=== PATIENT | male | born 1935 | race Asian ===

== ENCOUNTER 2017-11-20 18:12 | Inpatient (IN) | payer OTHER, MEDICARE ==
[~2017-11-20] VITALS: Ht 167.6 cm; Wt 49.9 kg
[2017-11-20 18:16] VITALS: BP 113/54
[2017-11-20] MEDS ORDERED: NACL 0.9% 1,000 ML IV ONE ×2 (18:35→18:40)
[2017-11-20 19:20] LABS: BASOPHILS # (AUTO) 0.6 K/uL (0.00-0.22); EOSINOPHILS # (AUTO) 0.1 K/uL (0-0.4); HEMATOCRIT 53.5 % (36-52); LYMPHOCYTES # (AUTO) 1.7 K/uL (2.0-11.5); MEAN CORPUSCULAR HEMOGLOBIN 27 pg (27-31); MEAN CORPUSCULAR HGB CONC 32 g/dL (33-37); MEAN CORPUSCULAR VOLUME 85 fL (80-94); MONOCYTES # (AUTO) 1.1 K/uL (0.8-1.0); NEUTROPHILS # (AUTO) 9.6 K/uL (1.8-7.7); PLATELET COUNT (AUTO) 123 K/uL (140-450); RED BLOOD CELL COUNT(AUTO) 6.29 MIL/uL (4.20-6.10); RED CELL DISTRIBUTION WIDTH 14.2 % (11.6-13.7); WHITE BLOOD COUNT (AUTO) 13.1 K/uL (4.8-10.8)
[2017-11-20] MEDS ORDERED: DOCU-299 PO (19:23)
[2017-11-20] MEDS ORDERED: TAMS0.4C96 PO (19:23)
[2017-11-20] MEDS ORDERED: FINA5TAB1 PO (19:23)
[2017-11-20] MEDS ORDERED: MAGN400S60 PO (19:23)
[2017-11-20] MEDS ORDERED: ACET-2619 PO (19:23)
[2017-11-20] MEDS ORDERED: ALEN70TA1 PO (19:23)
[2017-11-20] MEDS ORDERED: LEVO0.124 PO (19:23)
[2017-11-20] MEDS ORDERED: CALC-53 PO (19:23)
[2017-11-20] MEDS ORDERED: CRAN1TAB3 PO (19:23)
[2017-11-20] MEDS ORDERED: KEP500 PO (19:23)
[2017-11-20] MEDS ORDERED: PSYL0.5212 PO (19:23)
[2017-11-20] MEDS ORDERED: PAR2.5 PO (19:23)
[2017-11-20] MEDS ORDERED: LOSA50TA1 PO (19:23)
[2017-11-20 19:34] LABS: PROTHROMBIN TIME 10.4 secs (10.8-13.4)
[2017-11-20 19:35] LABS: ALBUMIN 3.5 g/dL (3.4-5.0); ANION GAP 15.3 (8-16); ASPARTATE AMINOTRANSFERASE 58 U/L (15-37); CARBON DIOXIDE 27.3 mmol/L (21-32); CHLORIDE 101 mmol/L (98-107); CREATININE 1.5 mg/dL (0.7-1.3); GLUCOSE 142 mg/dL (74-106); POTASSIUM 4.6 mmol/L (3.5-5.1); SODIUM SERUM 139 mmol/L (136-145); TOTAL BILIRUBIN 0.8 mg/dL (0.0-1.0); UREA NITROGEN, BLOOD 56 mg/dL (7-18)
[2017-11-20] MEDS ORDERED: NACL 0.9% 500 ML IV ONE (21:10)
[2017-11-20] MEDS ORDERED: HYDROmorphone PFS 2 MG/ML SYR IVP ONE (21:30)
[2017-11-20] MEDS ORDERED: LEVOFLOXACIN 500 MG/D5W PREMIX 100 ML IV ONE (22:25)
[2017-11-20] MEDS ORDERED: ACETAMINOPHEN 325 MG TAB PO PRN (22:40)
[2017-11-20] MEDS ORDERED: ONDANSETRON 4 MG/2 ML VIAL IVP PRN (22:40)
[2017-11-20] MEDS ORDERED: HYDROcodone/APAP 7.5/325 MG 1 TAB PO PRN (22:40)
[2017-11-20 22:53] LABS: APPEARANCE,URINE CLOUDY (CLEAR)
[2017-11-20 22:54] LABS: BILIRUBIN,URINE NEGATIVE (NEGATIVE); BLOOD, URINE 3+ (NEGATIVE); COLOR,URINE YELLOW (YELLOW); LEUKOCYTE ESTERASE ,URINE 3+ (NEGATIVE); NITRITE, URINE POSITIVE (NEGATIVE); PH,URINE 7.5 (5.0-9.0); UGLUCOSE NEGATIVE (NEGATIVE)
[2017-11-20 22:55] LABS: HYALINE CASTS, URINE 0-10 /LPF (None Seen); RBC,URINE TOO NUMEROUS TO COUN /HPF (0-5); WBC,URINE TOO MANY TO COUNT /HPF (0-5)
[2017-11-20 23:30] VITALS: BP 111/64
[2017-11-21] MEDS: NACL 0.9% 1,000 ML IV SCH ×3 (00:02→17:46)
[2017-11-21] MEDS ORDERED: METOPROLOL 5 MG/5 ML VIAL IVP SCH (01:25)
[2017-11-21] MEDS ORDERED: LEVOFLOXACIN 250 MG/D5 PREMIX 50 ML IV ONE (01:30)
[2017-11-21 02:02] VITALS: BP 107/64
[2017-11-21 04:00] VITALS: BP 131/75
[2017-11-21] MEDS: LEVOTHYROXINE 0.025 MG TAB PO SCH (06:30)
[2017-11-21 07:46] LABS: BASOPHILS # (AUTO) 0.2 K/uL (0.00-0.22); BASOPHILS % (AUTO) 1.5 % (0.0-2.0); HEMATOCRIT 48.8 % (36-52); HEMOGLOBIN 15.8 g/dL (12.0-18.0); LYMPHOCYTES # (AUTO) 1.2 K/uL (2.0-11.5); LYMPHOCYTES % (AUTO) 10.9 % (20.5-51.1); MEAN CORPUSCULAR HEMOGLOBIN 28 pg (27-31); MEAN CORPUSCULAR HGB CONC 32 g/dL (33-37); MEAN CORPUSCULAR VOLUME 85 fL (80-94); MONOCYTES # (AUTO) 1.4 K/uL (0.8-1.0); MONOCYTES % (AUTO) 12.2 % (1.7-9.3); NEUTROPHILS # (AUTO) 8.6 K/uL (1.8-7.7); NEUTROPHILS % (AUTO) 75.4 % (42.2-75.2); PLATELET COUNT (AUTO) 85 K/uL (140-450); RED BLOOD CELL COUNT(AUTO) 5.72 MIL/uL (4.20-6.10)
[2017-11-21 07:59] VITALS: BP 101/52
[2017-11-21] MEDS: FINASTERIDE 5 MG TAB PO SCH (09:00)
[2017-11-21] MEDS: BROMOCRIPTINE 2.5 MG TAB PO SCH ×2 (09:00→21:00)
[2017-11-21] MEDS ORDERED: levETIRAcetam 500 MG TAB PO SCH (09:00)
[2017-11-21] MEDS: METOPROLOL 25 MG TAB PO SCH ×2 (09:00→21:00)
[2017-11-21] MEDS: LOSARTAN 50 MG TAB PO SCH (09:00)
[2017-11-21] MEDS: DOCUSATE SODIUM 100 MG GELCAP PO SCH ×2 (09:00→21:00)
[2017-11-21] MEDS: LACTOBACILLUS RHAMNOSUS GG 1 EACH CAP PO SCH (09:00)
[2017-11-21] MEDS: CALCIUM CARB/VIT-D 500 MG/200 IU 1 TAB PO SCH (09:00)
[2017-11-21 09:09] LABS: WHITE BLOOD COUNT (AUTO) 11.4 K/uL (4.8-10.8)
[2017-11-21 09:18] LABS: ANION GAP 16.1 (8-16); CARBON DIOXIDE 22.5 mmol/L (21-32); CHLORIDE 110 mmol/L (98-107); GLUCOSE 105 mg/dL (74-106); POTASSIUM 4.6 mmol/L (3.5-5.1); SODIUM SERUM 144 mmol/L (136-145); UREA NITROGEN, BLOOD 36 mg/dL (7-18)
[2017-11-21 09:26] LABS: PHOSPHORUS 3.2 mg/dL (2.5-4.9)
[2017-11-21 12:00] VITALS: BP 106/52
[2017-11-21 16:00] VITALS: BP_SYST 113; BP_SYST 143; BP_DIAS 70; BP_DIAS 74
[2017-11-21 20:00] VITALS: BP 134/61
[2017-11-21] MEDS: TAMSULOSIN 0.4 MG CAP PO SCH (21:00)
[2017-11-21] MEDS: levETIRAcetam 500 MG in NACL 0.9% 100 ML IV SCH (22:10)
[2017-11-21] MEDS ORDERED: levETIRAcetam 100 MG/ML VIAL IV ONE (23:06)
[2017-11-22] VITALS: BP 140/73
[2017-11-22 04:00] VITALS: BP 132/60
[2017-11-22] MEDS: NACL 0.9% 1,000 ML IV SCH ×2 (04:41→15:50)
[2017-11-22] MEDS: LEVOTHYROXINE 0.025 MG TAB PO SCH (06:15)
[2017-11-22 06:39] LABS: HEMATOCRIT 40.9 % (36-52); HEMOGLOBIN 13.5 g/dL (12.0-18.0); MEAN CORPUSCULAR HEMOGLOBIN 28 pg (27-31); MEAN CORPUSCULAR HGB CONC 33 g/dL (33-37); MEAN CORPUSCULAR VOLUME 84 fL (80-94); PLATELET COUNT (AUTO) 102 K/uL (140-450); RED BLOOD CELL COUNT(AUTO) 4.85 MIL/uL (4.20-6.10); WHITE BLOOD COUNT (AUTO) 8.3 K/uL (4.8-10.8)
[2017-11-22 07:37] LABS: ANION GAP 15.1 (8-16); CARBON DIOXIDE 21.6 mmol/L (21-32); CHLORIDE 114 mmol/L (98-107); CREATININE 0.9 mg/dL (0.7-1.3); GLUCOSE 103 mg/dL (74-106); POTASSIUM 3.7 mmol/L (3.5-5.1); SODIUM SERUM 147 mmol/L (136-145); UREA NITROGEN, BLOOD 18 mg/dL (7-18)
[2017-11-22 07:47] VITALS: BP 138/70
[2017-11-22 07:56] LABS: MAGNESIUM 1.7 mg/dL (1.8-2.4); PHOSPHORUS 1.8 mg/dL (2.5-4.9)
[2017-11-22] MEDS: FINASTERIDE 5 MG TAB PO SCH (09:00)
[2017-11-22] MEDS: BROMOCRIPTINE 2.5 MG TAB PO SCH ×2 (09:00→21:47)
[2017-11-22] MEDS: CALCIUM CARB/VIT-D 500 MG/200 IU 1 TAB PO SCH (09:00)
[2017-11-22] MEDS: LOSARTAN 50 MG TAB PO SCH (09:00)
[2017-11-22] MEDS: LACTOBACILLUS RHAMNOSUS GG 1 EACH CAP PO SCH (09:00)
[2017-11-22] MEDS: METOPROLOL 25 MG TAB PO SCH ×2 (09:00→21:39)
[2017-11-22] MEDS: DOCUSATE SODIUM 100 MG GELCAP PO SCH ×2 (09:00→21:00)
[2017-11-22 09:22] LABS: LYMPHOCYTES % (MANUAL) 17 % (20-46); MONOCYTES % (MANUAL) 7 % (5-12)
[2017-11-22] MEDS: levETIRAcetam 500 MG in NACL 0.9% 100 ML IV SCH ×2 (09:26→21:28)
[2017-11-22 11:55] VITALS: BP 149/76
[2017-11-22] MEDS ORDERED: MAG SULF 2000 MG/WATER PREMIX 50 ML IV SCH (12:00)
[2017-11-22] MEDS ORDERED: INSULIN LISPRO SLIDING SCALE 100 UNITS/ML VIAL SUBQ PRN (12:20)
[2017-11-22] MEDS ORDERED: DEXTROSE 50% 50 ML SYR IVP PRN (12:20)
[2017-11-22] MEDS: CHLORHEXADINE GLUC 2% CLOTH TP SCH (12:43)
[2017-11-22 15:36] VITALS: BP 127/56
[2017-11-22] MEDS: BLOOD GLUCOSE MONITORING 1 DEV DEV FS SCH ×2 (15:44→21:06)
[2017-11-22 20:00] VITALS: BP 138/69
[2017-11-22] MEDS ORDERED: LEVOFLOXACIN 750 MG/D5W PREMIX 150 ML IV SCH (21:00)
[2017-11-22] MEDS: TAMSULOSIN 0.4 MG CAP PO SCH (21:40)
[2017-11-23] VITALS (7 sets, daily range): BP systolic 130–174; BP diastolic 57–89
[2017-11-23] MEDS: NACL 0.9% 1,000 ML IV SCH ×3 (01:11→20:19)
[2017-11-23] MEDS: LEVOTHYROXINE 0.025 MG TAB PO SCH (05:40)
[2017-11-23 06:46] LABS: ANION GAP 14.8 (8-16); CARBON DIOXIDE 23.3 mmol/L (21-32); CHLORIDE 116 mmol/L (98-107); CREATININE 0.8 mg/dL (0.7-1.3); GLUCOSE 92 mg/dL (74-106); POTASSIUM 5.1 mmol/L (3.5-5.1); SODIUM SERUM 149 mmol/L (136-145); UREA NITROGEN, BLOOD 14 mg/dL (7-18)
[2017-11-23 06:50] LABS: MAGNESIUM 2.4 mg/dL (1.8-2.4); PHOSPHORUS 1.8 mg/dL (2.5-4.9)
[2017-11-23] MEDS ORDERED: MAG SULF 2000 MG/WATER PREMIX 50 ML IV ONE (07:45)
[2017-11-23] MEDS: levETIRAcetam 500 MG in NACL 0.9% 100 ML IV SCH ×2 (08:04→20:20)
[2017-11-23] MEDS: BLOOD GLUCOSE MONITORING 1 DEV DEV FS SCH ×4 (08:07→20:24)
[2017-11-23 08:20] LABS: BASOPHILS # (AUTO) 0.3 K/uL (0.00-0.22); BASOPHILS % (AUTO) 3.4 % (0.0-2.0); EOSINOPHILS % (AUTO) 0.2 % (0.0-4.0); HEMOGLOBIN 13.9 g/dL (12.0-18.0); LYMPHOCYTES # (AUTO) 1.2 K/uL (2.0-11.5); MEAN CORPUSCULAR HEMOGLOBIN 27 pg (27-31); MEAN CORPUSCULAR HGB CONC 32 g/dL (33-37); MEAN CORPUSCULAR VOLUME 85 fL (80-94); MONOCYTES # (AUTO) 1.5 K/uL (0.8-1.0); NEUTROPHILS % (AUTO) 69.4 % (42.2-75.2); PLATELET COUNT (AUTO) 85 K/uL (140-450); RED BLOOD CELL COUNT(AUTO) 5.06 MIL/uL (4.20-6.10); RED CELL DISTRIBUTION WIDTH 14.4 % (11.6-13.7)
[2017-11-23] MEDS: METOPROLOL 25 MG TAB PO SCH ×3 (09:00→21:00)
[2017-11-23] MEDS: CALCIUM CARB/VIT-D 500 MG/200 IU 1 TAB PO SCH (09:42)
[2017-11-23] MEDS: FINASTERIDE 5 MG TAB PO SCH (09:42)
[2017-11-23] MEDS: LOSARTAN 50 MG TAB PO SCH (09:42)
[2017-11-23] MEDS: DOCUSATE SODIUM 100 MG GELCAP PO SCH ×2 (09:42→20:20)
[2017-11-23] MEDS: BROMOCRIPTINE 2.5 MG TAB PO SCH ×2 (09:43→20:20)
[2017-11-23] MEDS: LACTOBACILLUS RHAMNOSUS GG 1 EACH CAP PO SCH (09:43)
[2017-11-23] MEDS: MUPIROCIN 2% OINT 22 GM TUBE TP SCH (09:43)
[2017-11-23] MEDS: CHLORHEXADINE GLUC 2% CLOTH TP SCH (12:00)
[2017-11-23] MEDS: TAMSULOSIN 0.4 MG CAP PO SCH (20:20)
[2017-11-23] MEDS ORDERED: METOPROLOL 25 MG TAB PO SCH (20:40)
[2017-11-24] MEDS ORDERED: METOPROLOL 5 MG/5 ML VIAL IVP ONE (01:50)
[2017-11-24 04:00] VITALS: BP 151/96
[2017-11-24] MEDS: LEVOTHYROXINE 0.025 MG TAB PO SCH (06:02)
[2017-11-24] MEDS: NACL 0.9% 1,000 ML IV SCH (06:03)
[2017-11-24 06:27] LABS: BASOPHILS # (AUTO) 0.2 K/uL (0.00-0.22); BASOPHILS % (AUTO) 1.8 % (0.0-2.0); EOSINOPHILS % (AUTO) 0.1 % (0.0-4.0); HEMOGLOBIN 15.1 g/dL (12.0-18.0); LYMPHOCYTES # (AUTO) 1.2 K/uL (2.0-11.5); LYMPHOCYTES % (AUTO) 10.4 % (20.5-51.1); MEAN CORPUSCULAR HEMOGLOBIN 28 pg (27-31); MEAN CORPUSCULAR HGB CONC 32 g/dL (33-37); MEAN CORPUSCULAR VOLUME 85 fL (80-94); MONOCYTES # (AUTO) 1.2 K/uL (0.8-1.0); MONOCYTES % (AUTO) 10.9 % (1.7-9.3); NEUTROPHILS # (AUTO) 8.7 K/uL (1.8-7.7); NEUTROPHILS % (AUTO) 76.8 % (42.2-75.2); PLATELET COUNT (AUTO) 151 K/uL (140-450); RED BLOOD CELL COUNT(AUTO) 5.51 MIL/uL (4.20-6.10); RED CELL DISTRIBUTION WIDTH 14.1 % (11.6-13.7); WHITE BLOOD COUNT (AUTO) 11.3 K/uL (4.8-10.8)
[2017-11-24] MEDS: BLOOD GLUCOSE MONITORING 1 DEV DEV FS SCH ×3 (06:43→16:51)
[2017-11-24 06:56] LABS: ANION GAP 15.9 (8-16); CARBON DIOXIDE 21.5 mmol/L (21-32); CHLORIDE 113 mmol/L (98-107); CREATININE 0.7 mg/dL (0.7-1.3); GLUCOSE 155 mg/dL (74-106); POTASSIUM 3.4 mmol/L (3.5-5.1); SODIUM SERUM 147 mmol/L (136-145); UREA NITROGEN, BLOOD 11 mg/dL (7-18)
[2017-11-24 07:09] LABS: MAGNESIUM 1.8 mg/dL (1.8-2.4); PHOSPHORUS 1.6 mg/dL (2.5-4.9)
[2017-11-24 08:05] VITALS: BP 149/99
[2017-11-24] MEDS ORDERED: CALCIUM CARBONATE 500 MG TAB PO SCH (09:00)
[2017-11-24] MEDS ORDERED: SODIUM PHOS / POTASSIUM PHOS 1 PKT PDR PO SCH (09:00)
[2017-11-24] MEDS ORDERED: POTASSIUM CHLORIDE 20% 40 MEQ/15 ML UDC PO SCH (09:00)
[2017-11-24] MEDS: DOCUSATE SODIUM 100 MG GELCAP PO SCH (09:50)
[2017-11-24] MEDS: LOSARTAN 50 MG TAB PO SCH (09:51)
[2017-11-24] MEDS: CALCIUM CARB/VIT-D 500 MG/200 IU 1 TAB PO SCH (09:51)
[2017-11-24] MEDS: LACTOBACILLUS RHAMNOSUS GG 1 EACH CAP PO SCH (09:51)
[2017-11-24] MEDS: FINASTERIDE 5 MG TAB PO SCH (09:51)
[2017-11-24] MEDS: BROMOCRIPTINE 2.5 MG TAB PO SCH (09:51)
[2017-11-24] MEDS: METOPROLOL 25 MG TAB PO SCH (09:51)
[2017-11-24] MEDS: levETIRAcetam 500 MG in NACL 0.9% 100 ML IV SCH (09:52)
[2017-11-24] MEDS: MUPIROCIN 2% OINT 22 GM TUBE TP SCH (09:52)
[2017-11-24] MEDS ORDERED: LACT10CA PO (11:56)
[2017-11-24] MEDS ORDERED: BACTO TP (11:56)
[2017-11-24] MEDS ORDERED: LEVO750T2 PO (11:56)
[2017-11-24] MEDS ORDERED: METO25TA PO (11:56)
[2017-11-24] MEDS ORDERED: CHLO118S2 TP (11:56)
[2017-11-24] MEDS: CHLORHEXADINE GLUC 2% CLOTH TP SCH (12:19)
[2017-11-24] MEDS ORDERED: DILTIAZEM 25 MG/5 ML VIAL IVP SCH (12:30)
[2017-11-24 13:00] VITALS: BP 142/95
[2017-11-24 14:23] VITALS: BP 153/93
[2017-11-24 16:00] VITALS: BP 128/80
[2017-11-27] MEDS ORDERED: ALENDRONATE SODIUM 70 MG TAB PO SCH (06:00)
== END 2017-11-24 17:35 | disposition home or self-care (01) | DRG 871 ==
LOC: MED 18:12 → MTU 22:40 → UNDOADMIN 22:40
PROVIDERS: ADMIT Family Medicine Sports Medicine; ATTEND Family Medicine Sports Medicine
DX: A41.9 Sepsis, unspecified organism (principal); N17.0 Acute kidney failure with tubular necrosis; G93.41 Metabolic encephalopathy; E87.0 Hyperosmolality and hypernatremia; E11.65 Type 2 diabetes mellitus with hyperglycemia; E11.51 Type 2 diabetes mellitus with diabetic peripheral angiopathy without gangrene; D68.59 Other primary thrombophilia; N39.0 Urinary tract infection, site not specified; T83.83XA Hemorrhage due to genitourinary prosthetic devices, implants and grafts, initial encounter; I11.0 Hypertensive heart disease with heart failure; I50.9 Heart failure, unspecified; J32.9 Chronic sinusitis, unspecified; R65.20 Severe sepsis without septic shock; R74.0 Nonspecific elevation of levels of transaminase and lactic acid dehydrogenase [LDH]; E87.6 Hypokalemia; E83.39 Other disorders of phosphorus metabolism; E83.42 Hypomagnesemia; E87.8 Other disorders of electrolyte and fluid balance, not elsewhere classified; E83.51 Hypocalcemia; B95.62 Methicillin resistant Staphylococcus aureus infection as the cause of diseases classified elsewhere; G93.89 Other specified disorders of brain; E03.9 Hypothyroidism, unspecified; E78.5 Hyperlipidemia, unspecified; M81.0 Age-related osteoporosis without current pathological fracture; I48.0 Paroxysmal atrial fibrillation; F03.90 Unspecified dementia, unspecified severity, without behavioral disturbance, psychotic disturbance, mood disturbance, and anxiety; B96.4 Proteus (mirabilis) (morganii) as the cause of diseases classified elsewhere; N40.0 Benign prostatic hyperplasia without lower urinary tract symptoms; I25.10 Atherosclerotic heart disease of native coronary artery without angina pectoris; F32.9 Major depressive disorder, single episode, unspecified; Z88.1 Allergy status to other antibiotic agents; Z86.73 Personal history of transient ischemic attack (TIA), and cerebral infarction without residual deficits; Y84.6 Urinary catheterization as the cause of abnormal reaction of the patient, or of later complication, without mention of misadventure at the time of the procedure; Y92.89 Other specified places as the place of occurrence of the external cause
CPT/HCPCS: 36415; 51702; 70450; 71045; 76770; 80048; 80053; 81001; 82550; 82553; 82948; 83036; 83605; 83690; 83735; 83874; 83880; 84100; 84439; 84443; 84484; 85025; 85610; 85730; 87040; 87081; 87086; 87186; 92610; 93005; 93925; 93970; 96365; 96375; 99285; J1170; J1815; J1953; J1956; J3475; J3490; J7030; J7060; Q0092

== ENCOUNTER 2018-03-24 22:43 | Inpatient (IN) | payer OTHER, MEDICARE ==
[~2018-03-24] VITALS: Ht 152.4 cm; Wt 76.2 kg
[~2018-03-24 22:43] MED LIST: ACET-2619 PO; ALEN70TA1 PO; BACTO TP; CALC-53 PO; CHLO118S2 TP; CRAN1TAB3 PO; DOCU-299 PO; FINA5TAB1 PO; LACT10CA PO; LEVO0.124 PO; LEVO750T2 PO; LOSA50TA1 PO; MAGN400S60 PO; METO25TA PO; PAR2.5 PO; PSYL0.5212 PO; TAMS0.4C96 PO
--- NOTE | 2018-03-24 22:43 | NUR ---
PT.JANIS TO ER BED 8
--- NOTE | 2018-03-24 22:43 | NUR ---
RECEIVED REPORT FROM [facility] WHO PICKED PT UP FROM [facility] DUE TO HEMATURIA, FEVER, HYPOTENSION AND DISCHARGE FROM [facility] SINCE 1900 TODAY. ALSO REPORTED A LOW BP OF 89/60 AT THE FACILITY. PATIENT PRESENTS NONVERBAL, RESPONDING ONLY TO PAIN WHICH IS HIS BASELINE. PATIENT PLACED ON MONITOR, IV'S ESTABLISHED, URINE OBTAINED, EKG PERFORMED. [facility] ONTINUE TO MONITOR CLOSELY.
[2018-03-24] MEDS ORDERED: NACL 0.9% 1,000 ML IV ONE ×2 (22:53)
[2018-03-24 23:07] VITALS: BP 96/63
[2018-03-24 23:19] LABS: BASOPHILS # (AUTO) 0.1 K/uL (0.00-0.22); BASOPHILS % (AUTO) 0.3 % (0.0-2.0); EOSINOPHILS % (AUTO) 0.2 % (0.0-4.0); HEMATOCRIT 37.2 % (36-52); HEMOGLOBIN 12.1 g/dL (12.0-18.0); LYMPHOCYTES # (AUTO) 1.7 K/uL (2.0-11.5); LYMPHOCYTES % (AUTO) 9.5 % (20.5-51.1); MEAN CORPUSCULAR HEMOGLOBIN 27 pg (27-31); MEAN CORPUSCULAR HGB CONC 33 g/dL (33-37); MEAN CORPUSCULAR VOLUME 84.5 fL (80-94); MONOCYTES # (AUTO) 1.7 K/uL (0.8-1.0); MONOCYTES % (AUTO) 9.6 % (1.7-9.3); NEUTROPHILS # (AUTO) 14.2 K/uL (1.8-7.7); PLATELET COUNT (AUTO) 340 K/uL (140-450); RED BLOOD CELL COUNT(AUTO) 4.41 MIL/uL (4.20-6.10); RED CELL DISTRIBUTION WIDTH 15.3 % (11.6-13.7); WHITE BLOOD COUNT (AUTO) 17.7 K/uL (4.8-10.8)
--- NOTE | 2018-03-24 23:24 | NUR ---
Blanka fournier in [facility] - 03/24/18 at [email or web address] TERRY AT BEDSIDE
[2018-03-24 23:27] LABS: ANION GAP 7.7 (8-16); CARBON DIOXIDE 31.3 mmol/L (21-32); CHLORIDE 99 mmol/L (98-107); CREATININE 0.8 mg/dL (0.7-1.3); GLUCOSE 207 mg/dL (74-106); SODIUM SERUM 134 mmol/L (136-145); UREA NITROGEN, BLOOD 27 mg/dL (7-18)
[2018-03-24 23:33] LABS: ALBUMIN 1.9 g/dL (3.4-5.0); ASPARTATE AMINOTRANSFERASE 42 U/L (15-37); LIPASE 448 U/L (73-393); TOTAL BILIRUBIN 1.4 mg/dL (0.0-1.0)
[2018-03-24 23:44] LABS: NEUTROPHILS % (AUTO) 80.4 % (42.2-75.2)
[2018-03-24] MEDS ORDERED: LEVOFLOXACIN 750 MG/D5W PREMIX 150 ML IV ONE (23:55)
[2018-03-24 23:57] LABS: APPEARANCE,URINE CLOUDY (CLEAR); BILIRUBIN,URINE 1+ (NEGATIVE); BLOOD, URINE 3+ (NEGATIVE); COLOR,URINE YELLOW (YELLOW); LEUKOCYTE ESTERASE ,URINE TRACE (NEGATIVE); NITRITE, URINE NEGATIVE (NEGATIVE); PH,URINE 5.5 (5.0-9.0); UGLUCOSE NEGATIVE (NEGATIVE)
[2018-03-25 00:09] LABS: RBC,URINE TOO NUMEROUS TO COUN /HPF (0-5)
--- NOTE | 2018-03-25 00:30 | NUR ---
PT. RESTING IN BED, EKG TACHYCARDIA HR 130 BPM
[2018-03-25] MEDS ORDERED: NACL 0.9% 1,000 ML IV ONE (01:00)
[2018-03-25] MEDS ORDERED: DILTIAZEM 25 MG/5 ML VIAL IVP ONE ×2 (01:00→06:45)
[2018-03-25] MEDS ORDERED: NACL 0.9% 1,000 ML IV SCH (01:03)
[2018-03-25] MEDS ORDERED: DILTIAZEM 125 MG/25 ML VIAL IV ONE (01:05)
[2018-03-25] MEDS ORDERED: HYDROcodone/APAP 7.5/325 MG 1 TAB PO PRN (01:05)
[2018-03-25] MEDS ORDERED: ONDANSETRON 4 MG/2 ML VIAL IM/IVP PRN (01:05)
[2018-03-25] MEDS ORDERED: DOCUSATE SODIUM 100 MG GELCAP PO PRN (01:05)
[2018-03-25] MEDS ORDERED: DEXTROSE 50% 50 ML SYR IVP PRN (01:25)
[2018-03-25] MEDS: DEXT 5% /NACL 0.9% 1,000 ML IV SCH ×2 (01:30→13:16)
--- NOTE | 2018-03-25 01:35 | NUR ---
RECEIVED A 82 Y/O MALE FROM ER VIA [facility] WITH C/C OF HEMATURIA AND HYPOTENSION. TRANSFERRED PATIENT WITH 2 ASSIST FROM [place] TO BED AND REPOSITIONED PATIENT IN COMFORTABLE POSITION. ADMISSION CARE DONE AND CARRY OUT ORDERS. FALL PRECAUTION IMPLEMENTED. PLACED ALLERGY WRIST BAND FOR SAFETY. PATIENT IS NON-VERBAL. CALL LIGHT WITHIN REACH.
--- NOTE | 2018-03-25 01:35 | NUR ---
Patient will be admitted to [facility]. Admited to TELEMETRY. Will go to room 113. Belongings list completed. Report to KARYNA OJEDA.
[2018-03-25] MEDS ORDERED: MAGNESIUM HYDROXIDE 2400 MG/30 ML UDC PO PRN (01:40)
[2018-03-25 01:46] LABS: FREE T4 (FREE THYROXINE) 1.24 ng/dL (0.76-1.46); PHOSPHORUS 2.8 mg/dL (2.5-4.9); THYROID STIMULATING HORMONE 0.01 uIU/mL (0.34-3.74)
[2018-03-25 04:00] VITALS: BP 102/63
--- NOTE | 2018-03-25 04:20 | NUR ---
TRANSPORT PATIENT TO CT ROOM FOR HEAD CT ACCOMPANIED BY CHEMISTRY ACCOUNT MANAGER AND HALAL MEAT PACKER. PATIENT TOLERATED PROCEDURE WELL AND TRANSPORTED BACK TO THE ROOM WITH NO PROBLEM.
--- NOTE | 2018-03-25 06:20 | NUR ---
UNCONTROLLED A-FIB ON TELE RANGING FROM 150'S TO 170'S BPM, PT SLEEPING, NO SIGNS OF DISTRESS, DR CONDE MADE AWARE, SAID SHE WILL ORDER STAT EKG AND CARDIOLOGY CONSULT WITH DR FLORES, VITAL SIGNS TAKEN: BP-119/63, HR-161, RR-26, TEMP-97.8, SAT-96% ON ROOM AIR, MONITORED CLOSELY.
--- NOTE | 2018-03-25 06:42 | NUR ---
PATIENT HAS BEEN SCREENED AND CATEGORIZED MODERATE NUTRITION RISK. PATIENT WILL BE SEEN WITHIN 3-5 DAYS OF ADMISSION. 03/27/18-03/29/18 MELVIN AMES MS, RDN Addendum: 03/26/18 at [address] PATIENT HAS BEEN RE-SCREENED AND RE-CATEGORIZED HIGH NUTRITIONAL RISK DUE TO SEPSIS. PATIENT WILL BE SEEN 03/27/[address]
[2018-03-25] MEDS: BLOOD GLUCOSE MONITORING 1 DEV DEV FS SCH ×4 (06:57→21:22)
--- NOTE | 2018-03-25 07:19 | NUR ---
ENDORSEMENT GIVEN TO AM SHIFT NURSE FOR CONTINUITY OF CARE. PATIENT IN STABLE CONDITION.
--- NOTE | 2018-03-25 07:20 | NUR ---
RECEIVED REPORT FROM ASSISTANT OFFSET PRESS OPERATOR RN. PATIENT IS APHASIC, OPENS EYES SPONTANEOUSLY. HAS NO SIGNS AND SYMPTOMS OF ACUTE DISTRESS NOTED AT THIS TIME. HAS IV TO THE LEFT AC 18G AND FOREARM 20G. INFUSING D5NS AT 85 ML/HR. HAS GTUBE. DISCUSSED PLAN OF CARE WITH PATIENT. BED IN LOWEST POSITION, SIDE RAILS UP, CALL LIGHT WITHIN REACH. FALL RISK PROTOCOL IN PLACE. WILL CONTINUE TO MONITOR.
[2018-03-25 07:38] LABS: ANION GAP 10.8 (8-16); CARBON DIOXIDE 24.7 mmol/L (21-32); CHLORIDE 105 mmol/L (98-107); CREATININE 0.6 mg/dL (0.7-1.3); GLUCOSE 152 mg/dL (74-106); POTASSIUM 3.5 mmol/L (3.5-5.1); SODIUM SERUM 137 mmol/L (136-145); UREA NITROGEN, BLOOD 22 mg/dL (7-18)
[2018-03-25 07:43] LABS: MAGNESIUM 1.8 mg/dL (1.8-2.4); PHOSPHORUS 1.9 mg/dL (2.5-4.9)
[2018-03-25 07:52] VITALS: BP 105/72
[2018-03-25] MEDS: LOSARTAN 50 MG TAB PO SCH (09:00)
[2018-03-25] MEDS ORDERED: METOPROLOL 25 MG TAB PO SCH (09:00)
[2018-03-25] MEDS: DILTIAZEM 60 MG TAB PO SCH ×2 (09:12→17:13)
--- NOTE | 2018-03-25 09:27 | NUR ---
ADMINISTERED CARDIZEM VIA G-TUBE. PATIENT TOLERATED WELL.
[2018-03-25] MEDS: LACTOBACILLUS RHAMNOSUS GG 1 EACH CAP PO SCH (10:02)
[2018-03-25] MEDS: DOCUSATE SODIUM 100 MG GELCAP PO SCH ×2 (10:02→21:34)
[2018-03-25] MEDS: FINASTERIDE 5 MG TAB PO SCH (10:03)
[2018-03-25] MEDS: CALCIUM CARB/VIT-D 500 MG/200 IU 1 TAB PO SCH (10:03)
[2018-03-25] MEDS: ATORVASTATIN 20 MG TAB PO SCH (10:03)
[2018-03-25] MEDS ORDERED: DILTIAZEM 25 MG/5 ML VIAL IVP SCH (11:30)
[2018-03-25] MEDS ORDERED: METOPROLOL 5 MG/5 ML VIAL IVP SCH (11:35)
--- NOTE | 2018-03-25 11:36 | NUR ---
PATIENTS HEART RATE AT 180, LET DR CRISTOBAL KNOW. WANTED ME TO GIVE IV PUSH CARDIZEM BUT PHARMACY INFORMED ME THAT WE ARE STILL OUT OF STOCK IN THE WHOLE HOSPITAL. WILL FOLLOW THROUGH WITH ORDERS. PATIENT BLOOD PRESSURE IS 104/49, TEMP AT 98.6.
--- NOTE | 2018-03-25 11:49 | NUR ---
ADMINISTERED METOPROLOL 5ML IVP. ADMINISTERED SLOW. PATIENT TOLERATED WELL. WILL REASSESS PATIENT.
[2018-03-25] MEDS: INSULIN LISPRO SLIDING SCALE 100 UNITS/ML VIAL SUBQ PRN ×2 (11:57→21:25)
[2018-03-25 12:00] VITALS: BP 115/52
[2018-03-25] MEDS: SODIUM PHOS / POTASSIUM PHOS 1 PKT PDR PO SCH ×2 (12:49→17:13)
[2018-03-25] MEDS: metroNIDAZOLE 500 MG/NS PREMIX 100 ML IV SCH ×2 (12:50→21:33)
[2018-03-25] MEDS: BROMOCRIPTINE 2.5 MG TAB PO SCH ×2 (12:50→21:34)
--- NOTE | 2018-03-25 14:20 | NUR ---
MADE DR GIFFORD AWARE THAT PATIENTS BP WAS 102/33, BUT WAS LAYING ON HIS LEFT SIDE. SHE STATED TO LETS CONTINUE TO MONITOR PATIENT FOR NOW.
[2018-03-25 16:00] VITALS: BP 106/51
--- NOTE | 2018-03-25 16:00 | NUR ---
PATIENT IS SUPINE AND BP IS 106/51. HAS NO SIGNS AND SYMPTOMS OF DISTRESS NOTED AT THIS TIME. WILL CONTINUE TO MONITOR.
--- NOTE | 2018-03-25 17:40 | NUR ---
GAVE CARDIZEM VIA GTUBE AND TURNED PATIENT WITH MOTOR VEHICLE CLERK. PATIENT TOLERATED WELL. WILL CONTINUE TO MONITOR.
[2018-03-25 20:00] VITALS: BP 104/47
--- NOTE | 2018-03-25 20:04 | NUR ---
REPORT RECEIVED FROM MORNING NURSE. PT NOT IN ACUTE DISTRESS. WILL CONTINUE TO MONITOR. Addendum: 03/25/18 at 2005 by Merritt Bonner RN REPORT RECEIVED AT 660
--- NOTE | 2018-03-25 20:10 | NUR ---
INITIAL SHIFT ASSESSMENT COMPLETE. PT IN NOT IN ANY ACUTE DISTRESS. LUNGS CLEAR BILATERALLY. S1 S2 IRREGULAR. BOWEL SOUNDS PRESENT X4 QUADRANTS. SKIN INTACT DRY AND WARM. NO OPEN WOUNDS PRESENT. CAP REFILL < 3S. BED LOCKED IN LOW POSITION. CALL HAZEL WITHIN REACH. WILL CONTINUE TO MONITOR.
--- NOTE | 2018-03-25 21:30 | NUR ---
PM MEDS GIVEN THOUGH GTUBE. PT TOLERATED WELL. PLACEMENT CHECKED WITH 30ML OF AIR AND AUSCULTATED. PT NOT IN ANY ACUTE DISTRESS. BED LOCKED IN LOW POSITION. CALL HAZEL WITHIN REACH. WILL CONTINUE TO MONITOR.
[2018-03-25] MEDS: TAMSULOSIN 0.4 MG CAP PO SCH (21:33)
[2018-03-26] VITALS: BP 100/49
--- NOTE | 2018-03-26 | NUR ---
PT ASLEEP AND BREATHING. NOT IN ANY ACUTE DISTRESS.
[2018-03-26] MEDS: DILTIAZEM 60 MG TAB PO SCH ×4 (00:27→18:12)
[2018-03-26] MEDS: DEXT 5% /NACL 0.9% 1,000 ML IV SCH ×3 (01:02→18:13)
--- NOTE | 2018-03-26 03:00 | NUR ---
PT SLEEPING IN BED. NOT IN ANY ACUTE DISTRESS. WILL CONTINUE TO MONITOR.
[2018-03-26 04:00] VITALS: BP 94/46
[2018-03-26] MEDS: metroNIDAZOLE 500 MG/NS PREMIX 100 ML IV SCH ×3 (04:57→20:26)
[2018-03-26 06:21] LABS: BASOPHILS % (AUTO) 0.2 % (0.0-2.0); EOSINOPHILS % (AUTO) 0.1 % (0.0-4.0); HEMATOCRIT 32.1 % (36-52); HEMOGLOBIN 10.4 g/dL (12.0-18.0); LYMPHOCYTES # (AUTO) 0.8 K/uL (2.0-11.5); LYMPHOCYTES % (AUTO) 4.9 % (20.5-51.1); MEAN CORPUSCULAR HEMOGLOBIN 28 pg (27-31); MEAN CORPUSCULAR HGB CONC 32 g/dL (33-37); MEAN CORPUSCULAR VOLUME 85.3 fL (80-94); MONOCYTES # (AUTO) 1.6 K/uL (0.8-1.0); MONOCYTES % (AUTO) 9.9 % (1.7-9.3); NEUTROPHILS # (AUTO) 13.9 K/uL (1.8-7.7); NEUTROPHILS % (AUTO) 84.9 % (42.2-75.2); PLATELET COUNT (AUTO) 319 K/uL (140-450); RED BLOOD CELL COUNT(AUTO) 3.77 MIL/uL (4.20-6.10); RED CELL DISTRIBUTION WIDTH 14.9 % (11.6-13.7); WHITE BLOOD COUNT (AUTO) 16.3 K/uL (4.8-10.8)
[2018-03-26] MEDS: ALENDRONATE SODIUM 70 MG TAB PO SCH (06:29)
[2018-03-26] MEDS: BLOOD GLUCOSE MONITORING 1 DEV DEV FS SCH ×4 (06:31→20:26)
[2018-03-26 06:48] LABS: CARBON DIOXIDE 23.6 mmol/L (21-32); CHLORIDE 107 mmol/L (98-107); CREATININE 0.6 mg/dL (0.7-1.3); GLUCOSE 140 mg/dL (74-106); POTASSIUM 3.6 mmol/L (3.5-5.1); SODIUM SERUM 138 mmol/L (136-145); UREA NITROGEN, BLOOD 15 mg/dL (7-18)
[2018-03-26 06:52] LABS: MAGNESIUM 1.9 mg/dL (1.8-2.4); PHOSPHORUS 2.4 mg/dL (2.5-4.9)
--- NOTE | 2018-03-26 07:16 | NUR ---
ENDORSED PT TO DAY SHIFT RN FOR CONTINUITY OF CARE. PT IN STABLE CONDITION.
--- NOTE | 2018-03-26 07:17 | NUR ---
RECEIVED REPORT FROM EXTENSION FORESTER NURSE. PATIENT LYING DOWN IN BED SLEEPING, AROUSABLE BY VOICE. NO DISTRESS NOTED. RESPIRATIONS EVEN, UNLABORED, ON ROOM AIR. FLACC 0. AAOX1, APHASIC, NON-VERBAL, SKIN COLOR APPROPRIATE TO ETHNICITY, WARM TO TOUCH. SKIN IS INTACT. LUNGS CTA ON ALL LOBES. ABDOMEN SOFT, NON-DISTENDED. GTUBE SITE IN PLACE, INTACT, NO RESIDUALS NOTED. GTUBE DRESSING HAS SOME LEAKAGE OF BROWNISH IN COLOR. REVIEWED PLAN OF CARE WITH PATIENT. REINFORCEMENT NEEDED, UNABLE TO COMPREHEND. SAFETY MEASURES IN PLACE, CALL LIGHT WITHIN REACH, FALL PREVENTIONS IN PLACE. WILL CONTINUE TO MONITOR.
[2018-03-26 08:00] VITALS: BP 129/54
[2018-03-26] MEDS: LOSARTAN 50 MG TAB PO SCH (09:00)
[2018-03-26] MEDS: SODIUM PHOS / POTASSIUM PHOS 1 PKT PDR PO SCH (09:06)
[2018-03-26] MEDS: DOCUSATE SODIUM 100 MG GELCAP PO SCH ×2 (09:07→20:27)
[2018-03-26] MEDS: CALCIUM CARB/VIT-D 500 MG/200 IU 1 TAB PO SCH (09:07)
[2018-03-26] MEDS: LACTOBACILLUS RHAMNOSUS GG 1 EACH CAP PO SCH (09:07)
[2018-03-26] MEDS: ATORVASTATIN 20 MG TAB PO SCH (09:07)
[2018-03-26] MEDS: BROMOCRIPTINE 2.5 MG TAB PO SCH ×2 (09:08→20:26)
[2018-03-26] MEDS: FINASTERIDE 5 MG TAB PO SCH (09:08)
--- NOTE | 2018-03-26 09:23 | NUR ---
PATIENT LYING DOWN IN BED SLEEPING, AROUSABLE BY VOICE. APHASIC. FLACC 0. SCHEDULED MEDICATIONS DUE GIVEN VIA GTUBE. NO LEAKAGE NOTED ON GTUBE WHEN GIVING MEDICATIONS. ASSISTED PEDIATRIC PATHOLOGIST IN CLEANING AND REPOSITIONING PATIENT. SAFETY MEASURES IN PLACE, CALL LIGHT WITHIN REACH. WILL CONTINUE TO MONITOR.
--- NOTE | 2018-03-26 10:12 | NUR ---
PT WITH AFIB RVR AT 120-140 BP 129/54, PT RESTING QUIETLY IN NAD, DR COBURN NOTIFIED.
--- NOTE | 2018-03-26 10:12 | NUR ---
PATIENT LYING DOWN IN BED SLEEPING, AROUSABLE BY VOICE. NO DISTRESS NOTED. FLACC 0. CONDITION UNCHANGED. WILL CONTINUE TO MONITOR.
[2018-03-26 12:00] VITALS: BP 114/64
[2018-03-26] MEDS: INSULIN LISPRO SLIDING SCALE 100 UNITS/ML VIAL SUBQ PRN ×2 (12:02→20:34)
--- NOTE | 2018-03-26 12:14 | NUR ---
PATIENT LYING DOWN IN BED SLEEPING, AROUSABLE BY VOICE. NO DISTRESS NOTED. FLACC 0. CONDITION UNCHANGED. SCHEDULED MEDICATIONS DUE GIVEN. SAFETY MEASURES IN PLACE, CALL LIGHT WITHIN REACH. WILL CONTINUE TO MONITOR.
[2018-03-26] MEDS ORDERED: DIGOXIN 0.25 MG/ML AMP IV SCH ×2 (13:40→20:00)
--- NOTE | 2018-03-26 14:04 | NUR ---
PATIENT LYING IN BED SLEEPING, AROUSABLE BY VOICE. NO DISTRESS NOTED. CONDITION UNCHANGED. CONTINUES TO HAVE ST AND AFIB ON TELE. SCHEDULED DIGOXIN MEDICATION GIVEN PER MD ORDERS. SAFETY MEASURES IN PLACE, CALL LIGHT WITHIN REACH. WILL CONTINUE TO MONITOR.
--- NOTE | 2018-03-26 15:03 | NUR ---
PATIENT LYING DOWN IN BED SLEEPING, AROUSABLE BY VOICE. NO DISTRESS NOTED. FLACC 0. CONDITION UNCHANGED. SAFETY MEASURES IN PLACE, CALL LIGHT WITHIN REACH. WILL CONTINUE TO MONITOR.
[2018-03-26 16:00] VITALS: BP 101/55
--- NOTE | 2018-03-26 16:45 | NUR ---
PATIENT LYING DOWN IN BED SLEEPING, AROUSABLE BY VOICE. NO DISTRESS NOTED. CONDITION UNCHANGED. SAFETY MEASURES IN PLACE, CALL LIGHT WITHIN REACH. WILL CONTINUE TO MONITOR.
--- NOTE | 2018-03-26 18:22 | NUR ---
PATIENT LYING DOWN IN BED SLEEPING, AROUSABLE BY VOICE. NO DISTRESS NOTED. FLACC 0. SCHEDULED MEDICATIONS DUE GIVEN. CONDITION UNCHANGED. SAFETY MEASURES IN PLACE, CALL LIGHT WITHIN REACH. WILL CONTINUE TO MONITOR.
--- NOTE | 2018-03-26 19:25 | NUR ---
GAVE REPORT TO MANAGER CULINARY NURSE FOR CONTINUITY OF CARE. PATIENT IN STABLE CONDITION.
--- NOTE | 2018-03-26 19:27 | NUR ---
RECEIVED REPORT FROM NIGHT RN. PT SLEEPING IN BED. AAOX1, ALERT TO NAME. FLACC-0. IV SITES PATENT AND INTACT. UPPER ARM CONTRACTURE NOTED. G-TUBE NOTED AND PATENT. NO S/S OF ACUTE DISTRESS. CALL LIGHT WITHIN REACH. SAFETY MEASURES ENSURED. WILL CONTINUE TO MONITOR.
[2018-03-26 19:39] VITALS: BP 117/62
[2018-03-26] MEDS: TAMSULOSIN 0.4 MG CAP PO SCH (20:26)
[2018-03-27] VITALS: BP 110/57
--- NOTE | 2018-03-27 | NUR ---
PT SLEEPING IN BED. NO S/S OF ACUTE DISTRESS. WILL CONTINUE TO MONITOR.
[2018-03-27] MEDS: DEXT 5% /NACL 0.9% 1,000 ML IV SCH ×2 (00:34→09:04)
[2018-03-27] MEDS: DILTIAZEM 60 MG TAB PO SCH ×3 (00:54→12:04)
[2018-03-27] MEDS ORDERED: LEVOFLOXACIN 750 MG/D5W PREMIX 150 ML IV SCH (01:00)
[2018-03-27] MEDS ORDERED: METOPROLOL 5 MG/5 ML VIAL IVP ONE (02:35)
[2018-03-27 04:00] VITALS: BP 125/70
--- NOTE | 2018-03-27 04:43 | NUR ---
PT SLEEPING IN BED. NO S/S OF ACUTE DISTRESS. CALL LIGHT WITHIN REACH. SAFETY MEASURES ENSURED. WILL CONTINUE TO MONITOR.
[2018-03-27] MEDS: metroNIDAZOLE 500 MG/NS PREMIX 100 ML IV SCH ×3 (05:57→20:36)
[2018-03-27] MEDS: BLOOD GLUCOSE MONITORING 1 DEV DEV FS SCH ×4 (06:02→21:04)
[2018-03-27 06:16] LABS: T4 (THYROXINE) 7.1 ug/dL (4.5-12.0)
[2018-03-27 06:26] LABS: BASOPHILS % (AUTO) 0.1 % (0.0-2.0); EOSINOPHILS % (AUTO) 0.1 % (0.0-4.0); HEMATOCRIT 34.1 % (36-52); LYMPHOCYTES # (AUTO) 1.1 K/uL (2.0-11.5); MEAN CORPUSCULAR HEMOGLOBIN 28 pg (27-31); MEAN CORPUSCULAR HGB CONC 32 g/dL (33-37); MEAN CORPUSCULAR VOLUME 86.1 fL (80-94); MONOCYTES # (AUTO) 1.8 K/uL (0.8-1.0); NEUTROPHILS # (AUTO) 15.1 K/uL (1.8-7.7); NEUTROPHILS % (AUTO) 83.8 % (42.2-75.2); PLATELET COUNT (AUTO) 425 K/uL (140-450); RED BLOOD CELL COUNT(AUTO) 3.96 MIL/uL (4.20-6.10); RED CELL DISTRIBUTION WIDTH 15.5 % (11.6-13.7)
[2018-03-27 06:30] LABS: ANION GAP 9.9 (8-16); CARBON DIOXIDE 24.6 mmol/L (21-32); CHLORIDE 108 mmol/L (98-107); CREATININE 0.7 mg/dL (0.7-1.3); GLUCOSE 158 mg/dL (74-106); POTASSIUM 3.5 mmol/L (3.5-5.1); SODIUM SERUM 139 mmol/L (136-145); UREA NITROGEN, BLOOD 12 mg/dL (7-18)
--- NOTE | 2018-03-27 07:26 | NUR ---
ENDORSED PLAN OF CARE TO DAY RN.
--- NOTE | 2018-03-27 07:35 | NUR ---
RECEIVED PT FROM TESTING AND REGULATING TECHNICIAN NURSE, VARUN, PT IS SLEEPING ON THE BED WITH AN IV LINE ON LEFT AC G.18 AND LEFT FOREARM G.20 WITH 50% DEXTROSE/ 0.9% NACL RUNNING AT 85ML/HR, INTACT. SIDE RAILS ARE UP AND CALL LIGHT WITHIN REACH ON THE PT'S RIGHT SIDE. NO SIGN OF DISTRESS NOTED AND WILL CONTINUE TO MONITOR.
--- NOTE | 2018-03-27 07:45 | NUR ---
PT IS AWAKEN AND INFORMED THAT VITAL SIGNS WILL BE TAKEN. NO SIGN OF DISTRESS NOTED, SIDE RAILS ARE UP AND FALL PRECAUTION ENFORCED, CALL LIGHT WITHIN REACH. WILL MONITOR.
[2018-03-27 08:00] VITALS: BP 135/66
[2018-03-27] MEDS: LACTOBACILLUS RHAMNOSUS GG 1 EACH CAP PO SCH (08:31)
[2018-03-27] MEDS: FINASTERIDE 5 MG TAB PO SCH (08:32)
[2018-03-27] MEDS: ATORVASTATIN 20 MG TAB PO SCH (08:32)
[2018-03-27] MEDS: LOSARTAN 50 MG TAB PO SCH (08:33)
[2018-03-27] MEDS: DOCUSATE SODIUM 100 MG GELCAP PO SCH ×2 (08:33→20:45)
[2018-03-27] MEDS: CALCIUM CARB/VIT-D 500 MG/200 IU 1 TAB PO SCH (08:33)
--- NOTE | 2018-03-27 08:35 | NUR ---
PT IS ASLEEP ON THE BED, AWAKEN AND INFORMED THAT MEDICATION WILL BE GIVEN, MEDICATIONS WERE GIVEN VIA G-TUBE AND PT TOLERATED IT. NO SIGN OF DISTRESS NOTED, SIDE ARE UP AND CALL LIGHT WITHIN REACH. WILL CONTINUE TO MONITOR.
[2018-03-27] MEDS: BROMOCRIPTINE 2.5 MG TAB PO SCH ×2 (08:39→20:58)
[2018-03-27] MEDS ORDERED: DIGOXIN 0.125 MG TAB PO SCH (09:00)
[2018-03-27] MEDS ORDERED: VANCOMYCIN PER PHARMACY MC PRN (09:30)
--- NOTE | 2018-03-27 10:20 | NUR ---
CHEST X-RAY DONE, PT SHOWS NO SIGN OF DISTRESS. WILL CONTINUE TO MONITOR..
--- NOTE | 2018-03-27 10:32 | NUR ---
PT IS AWAKE AND LYING ON THE BED, G-TUBE IS INTACT AND DRY, NO SIGN OF DISTRESS NOTED, SIDE RAILS ARE UP AND CALL LIGHT WITHIN REACH. WILL CONTINUE TO MONITOR.
[2018-03-27] MEDS ORDERED: VANCOMYCIN 500 MG in DEXTROSE 5% 100 ML IV SCH (11:00)
[2018-03-27 12:00] VITALS: BP 140/49
[2018-03-27] MEDS ORDERED: POTASSIUM PHOSPHATE 15 MM in NACL 0.9% 250 ML IV SCH (12:30)
--- NOTE | 2018-03-27 12:35 | NUR ---
DR. LAZO SAW THE PT AND ASSESSED THE G-TUBE AND PLACED A NEW GAUZED ON IT. VITAL SIGNS WAS TAKEN TO THE PT. AND MEDICATION WAS GIVEN, PT TOLERATED IT. PT HAS NO SIGN OF DISTRESS. CALL LIGHT WITHIN REACH AND WILL CONTINUE TO MONITOR/
--- NOTE | 2018-03-27 13:09 | NUR ---
03/27/18 RD INITIAL ASSESSMENT COMPLETED PLEASE REFER TO NUTRITION ASSESSMENT UNDER CARE ACTIVITY FOR ESTIMATED NUTRITIONAL NEEDS. 1. CONTINUE NPO EXCEPT MEDS DIET MEDICALLY NECESSARY. 2. WHEN PT CAN ADVANCE TO TUBE FEEDING, RECOMMEND DIABETISOURCE AC AT GOAL RATE OF 55ML/HR, PROVIDING 1320 ML, 1584 KCAL, AND 79 G PROTEIN WITH 35ML Q4H WATER FLUSHES. 3. RD TO FOLLOW-UP 2-3 DAYS, HIGH RISK ALENA VINES RD
--- NOTE | 2018-03-27 13:29 | NUR ---
NICOLETTE FROM LAB CALLED AND REPORTED THAT THE PT'S URINE IS POSITIVE FOR VRE, CONTACT PRECAUTION INITIATED AND RESULT WAS DOCUMENTED.
--- NOTE | 2018-03-27 13:39 | NUR ---
REPORTED TO DR. COBURN REGARDING THE REPORT FROM LAB REGARDING THE PT'S URINE BEING POSITIVE FOR VRE. DR. COBURN ACKNOWLEDGED.
[2018-03-27] MEDS: LINEZOLID 600MG PREMIX 300 ML IV SCH (14:17)
--- NOTE | 2018-03-27 15:24 | NUR ---
CHART REVIEW PER [facility] CRITERIA
--- NOTE | 2018-03-27 15:49 | NUR ---
PT IS ASLEEP LYING ON THE BED, MEDICATION GIVEN AND PT TOLERATED IT. NO SIGN OF DISTRESS NOTED, CALL LIGHT WITHIN REACH AND WILL CONTINUE TO MONITOR.
[2018-03-27 16:00] VITALS: BP 129/66
--- NOTE | 2018-03-27 16:30 | NUR ---
CALLED THE NURSE MACHINE TOOL DRESSER, DEEDEE TO REQUEST FOR A FEEDING PUMP OR THE PT. DEEDEE ACKNOWLEDGED AND SAID THAT HE WILL BRING IT OVER TO THE STATION.
--- NOTE | 2018-03-27 16:40 | NUR ---
PT WAS AWAKE AND LYING ON THE BED, VITAL SIGNS TAKEN, BLOOD GLUCOSE CHECK DONE AND RESULT IS 156. INSULIN WAS GIVEN AND PT TOLERATED IT. NO SIGN OF DISTRESS NOTED AND CALL LIGHT WITHIN REACH. WILL CONTINUE TO MONITOR.
[2018-03-27] MEDS: INSULIN LISPRO SLIDING SCALE 100 UNITS/ML VIAL SUBQ PRN (17:21)
--- NOTE | 2018-03-27 18:00 | NUR ---
APPROACHED DEEDEE WHEN HE CAME TO THE STATION AND ASKED HIM ABOUT THE PT'S FEEDING PUMP THAT WAS REQUESTED EARLIER BUT NURSE WELL REACTIVATOR OPERATOR, DEEDEE SAID THAT HE FORGOT TO BRING IT AND THAT I SHOULD HAVE CALLED HIM AGAIN TO REMIND ABOUT THE REQUESTED FEEDING PUMP FOR THE PT.
--- NOTE | 2018-03-27 18:34 | NUR ---
CALLED [facility] AND FOLLOWED UP THE FEEDING OF THE PT.
--- NOTE | 2018-03-27 19:03 | NUR ---
PT WAS STARTED ON FEEDING WITH DIABETIC SOURCE VIA THE G-TUBE THRU A FEEDING PUMP AT A RATE OF 10ML/HR WITH 35ML OF WATER Q4H. PT TOLERATED IT.
--- NOTE | 2018-03-27 19:32 | NUR ---
ENDORSED PT TO [facility] SHIFT NURSE, MILDRED, PT IS ASLEEP AND IS TABLE AT THIS TIME. NO SIGN OF DISTRESS NOTED.
--- NOTE | 2018-03-27 19:35 | NUR ---
RECEIVED REPORT FROM DAY SHIFT . PT LYING IN BED NO S/S OF DISTRESS BUT AROUSABLE ONLY TO STERNAL RUB. PT IS APHASIC AND ALSO HAS CONTRATIONS BLE UPPER AND LOWER LIMBS. PT WILL OPEN EYES SPONTANEOUSLY. PT IS BEDBOUND AND INCONTINENT BUT SKIN INTACT. ALL 4 SIDE RAILS UP AND BED IN LOW POSITION.
[2018-03-27 20:00] VITALS: BP 121/58
[2018-03-27] MEDS: TAMSULOSIN 0.4 MG CAP PO SCH (20:45)
[2018-03-28] VITALS: BP 119/73
--- NOTE | 2018-03-28 | NUR ---
COMPUTER DOCUMENTATION ERROR CARDIEZM WAS ADMINISTERED AT 0000 NOT 1800. DURING [id number] SHIFT
--- NOTE | 2018-03-28 | NUR ---
PT IN BED TURNED AND REPOSITIONED. NO S/S OF PAIN OR DISTRESS AT THIS TIME. VS STABLE AND MEDS GIVEN ORDERED. NO ADVERSE EFFECTS OF ABT NOTED.
[2018-03-28] MEDS: DEXT 5% /NACL 0.9% 1,000 ML IV SCH (00:06)
[2018-03-28] MEDS: LEVOFLOXACIN 250 MG/D5 PREMIX 50 ML IV SCH (00:33)
[2018-03-28] MEDS: MORPHINE SULFATE 2 MG/ML SYR IVP PRN (00:47)
--- NOTE | 2018-03-28 01:33 | NUR ---
PT HR JUMPED UP TO 162 NOTIFIED AND ORDERED AN EKG STAT.
--- NOTE | 2018-03-28 01:45 | NUR ---
EKG DONE BY RESPIRATORY RESULTS WERE ST WAVE ABNORMALITY, CONSIDER LATERAL ISCHEMIA OR DIGITALS EFFECT. ATTENDING DR. PYLE MADE AWARE PT HR ALSO DROPPED TO 118. NO NEW ORDERS AT THIS TIME. WILL TO CONTINUE TO MONITOR PT CLOSELY. RESIDUAL CHECKED ONLY 5MLS. FEEDING BUMPED UP TO 30MLS/HR.
[2018-03-28] MEDS: LINEZOLID 600MG PREMIX 300 ML IV SCH ×2 (02:00→13:30)
[2018-03-28] MEDS: DILTIAZEM 60 MG TAB PO SCH ×4 (02:13→18:00)
--- NOTE | 2018-03-28 02:53 | NUR ---
LATE ENTRY AT 2300 FEEDING WAS BUMPED FROM 10MLS TO 20MLS THERE WAS NO RESIDUAL NOTED.
[2018-03-28] MEDS ORDERED: METOPROLOL 25 MG TAB PO SCH (03:30)
--- NOTE | 2018-03-28 03:44 | NUR ---
NEW ORDER NOTED FOR METOPROLOL.
[2018-03-28 04:00] VITALS: BP 91/41
--- NOTE | 2018-03-28 04:00 | NUR ---
PT TURNED AND CHANGED AND REPOSITIONED FOR COMFORT BED LOW AND ALL 4 SIDE RAILS UP. NO S/S OF PAIN OR DISTRESS NOTED.
--- NOTE | 2018-03-28 05:43 | NUR ---
SPOKE TO ATTENDING DR PYLE REGARDING THE ORDERED CARDIZEM, DUE TO LOW B/P 91/41 AND HR DOWN TO 68. DR RENDON SAID HE WOULD TALK TO REIVING PHYSICANS AND CHIEF PHYSICAN, BUT TO HOLD MEDICATION FOR NOW AND RELIEVING DR WILL CALL BACK REGARDING MEDICATION ADMINISTRATION.
[2018-03-28] MEDS: INSULIN LISPRO SLIDING SCALE 100 UNITS/ML VIAL SUBQ PRN (05:59)
[2018-03-28 06:46] LABS: HEMATOCRIT 31.5 % (36-52); HEMOGLOBIN 10.2 g/dL (12.0-18.0); MEAN CORPUSCULAR HEMOGLOBIN 28 pg (27-31); MEAN CORPUSCULAR HGB CONC 32 g/dL (33-37); MEAN CORPUSCULAR VOLUME 85.9 fL (80-94); PLATELET COUNT (AUTO) 438 K/uL (140-450); RED BLOOD CELL COUNT(AUTO) 3.67 MIL/uL (4.20-6.10); RED CELL DISTRIBUTION WIDTH 15.7 % (11.6-13.7)
[2018-03-28 07:04] LABS: ANION GAP 11.7 (8-16); CARBON DIOXIDE 22.7 mmol/L (21-32); CHLORIDE 107 mmol/L (98-107); CREATININE 0.8 mg/dL (0.7-1.3); GLUCOSE 160 mg/dL (74-106); POTASSIUM 3.4 mmol/L (3.5-5.1); SODIUM SERUM 138 mmol/L (136-145); UREA NITROGEN, BLOOD 10 mg/dL (7-18)
[2018-03-28] MEDS: BLOOD GLUCOSE MONITORING 1 DEV DEV FS SCH ×4 (07:10→20:57)
[2018-03-28 07:11] LABS: MAGNESIUM 1.8 mg/dL (1.8-2.4); PHOSPHORUS 2.7 mg/dL (2.5-4.9)
[2018-03-28 07:22] LABS: LYMPHOCYTES % (MANUAL) 10 % (20-46); MONOCYTES % (MANUAL) 8 % (5-12)
--- NOTE | 2018-03-28 07:25 | NUR ---
RECEIVED REPORT FROM PRINCIPAL PROGRAMMER NURSE. PATIENT LYING DOWN IN BED SLEEPING, AROUSABLE BY VOICE. NO DISTRESS NOTED. FLACC 0. APHASIC, NON-VERBAL. RESPIRATIONS EVEN, UNALABORED, ON ROOM AIR WITH O2 SAT AT 92%. AAOX1, APHASIC, SKIN COLOR APPROPRIATE TO ETHNICITY, WARM TO TOUCH. SKIN IS INTACT. IV SITE INTACT, PATENT, AND RUNNING IVF PER MD ORDERS. ABDOMEN SOFT, NON-DISTENDED. GTUBE SITE INTACT, PATENT, AND INFUSING GTUBE FEEDING AT 40 ML/HR. NO RESIDUALS NOTED UPON ASPIRATION. SAFETY MEASURES IN PLACE, CALL LIGHT WITHIN REACH, FALL PREVENTIONS IN PLACE. WILL CONTINUE TO MONITOR.
[2018-03-28 08:00] VITALS: BP 106/49
[2018-03-28] MEDS: LOSARTAN 25 MG TAB PO SCH (09:00)
[2018-03-28] MEDS: LACTOBACILLUS RHAMNOSUS GG 1 EACH CAP PO SCH (09:33)
[2018-03-28] MEDS: DOCUSATE 100 MG/10 ML UDC PO SCH ×2 (09:33→20:55)
[2018-03-28] MEDS: FINASTERIDE 5 MG TAB PO SCH (09:34)
[2018-03-28] MEDS: CALCIUM CARB/VIT-D 500 MG/200 IU 1 TAB PO SCH (09:34)
[2018-03-28] MEDS: ATORVASTATIN 20 MG TAB PO SCH (09:34)
--- NOTE | 2018-03-28 09:48 | NUR ---
PATIENT LYING DOWN IN BED SLEEPING, AROUSABLE BY VOICE. NO DISTRESS NOTED. FLACC 0. SCHEDULED MEDICATIONS DUE GIVEN. ASSISTED SUPERVISOR WATER TREATMENT PLANT IN CLEANING AND REPOSITIONING PATIENT. SAFETY MEASURES IN PLACE, CALL LIGHT WITHIN REACH. WILL CONTINUE TO MONITOR.
[2018-03-28] MEDS: BROMOCRIPTINE 2.5 MG TAB PO SCH ×2 (10:47→20:56)
--- NOTE | 2018-03-28 10:58 | NUR ---
PATIENT LYING IN BED SLEEPING, AROUSABLE BY VOICE. NO DISTRESS NOTED. FLACC 0. SCHEDULED MEDICATION DUE GIVEN DUE TO LATE DELIVERY BY PHARMACY. SAFETY MEASURES IN PLACE, CALL LIGHT WITHIN REACH. WILL CONTINUE TO MONITOR.
[2018-03-28] MEDS: NACL 0.9% 1,000 ML IV SCH ×2 (11:56→18:21)
[2018-03-28 12:00] VITALS: BP 119/53
--- NOTE | 2018-03-28 12:00 | NUR ---
PATIENT LYING DOWN IN BED SLEEPING, AROUSABLE BY VOICE. NO DISTRESS NOTED. FLACC 0. CONDITION UNCHANGED. RESIDUALS CHECKED, 0 ML. INCREASED GTUBE FEEDING FROM 40 ML/HR TO 50 ML/HR PER DR. DONALDSON ORDERS UNTIL 55 ML/HR MAX. SAFETY MEASURES IN PLACE, CALL LIGHT WITHIN REACH. WILL CONTINUE TO MONITOR.
--- NOTE | 2018-03-28 13:23 | NUR ---
SCREEN FOR LOW SANA SCORE: PT SKIN WARM AND INTACT. NO REDNESS. PREVENTION INTERVENTIONS DISCUSSED WITH PRIMARY RN INCLUDING: -TURN AND REPOSITION PATIENT Q2H -ASSESS AND MONITOR SKIN CONDITION DURING POSITION CHANGE -OFFLOAD BILATERAL HEELS BY PLACING PILLOWS UNDER CALVES AT ALL TIMES, UNLESS OTHERWISE CONTRAINDICATED -PRESSURE REDISTRIBUTION SURFACE THERAPY -APPLY HEEL RAISER TO RIGHT HEEL AT ALL TIMES -KEEP SKIN CLEAN AND DRY AT ALL TIMES.
--- NOTE | 2018-03-28 15:23 | NUR ---
PATIENT LYING DOWN IN BED SLEEPING, AROUSABLE BY VOICE. NO DISTRESS NOTED. FLACC 0. IVF INFUSING PER ORDERS. SAFETY MEASURES IN PLACE, CALL LIGHT WITHIN REACH. WILL CONTINUE TO MONITOR.
[2018-03-28 16:00] VITALS: BP 112/44
[2018-03-28] MEDS ORDERED: POTASSIUM CHLORIDE 20% 40 MEQ/15 ML UDC GT SCH (16:15)
--- NOTE | 2018-03-28 16:53 | NUR ---
PATIENT LYING DOWN IN BED, NO DISTRESS NOTED. FLACC 0. CONDITION UNCHANGED. SCHEDULED MEDICATIONS DUE GIVEN. SAFETY MEASURES IN PLACE, CALL LIGHT WITHIN REACH. WILL CONTINUE TO MONITOR.
[2018-03-28 18:15] VITALS: BP 94/44
--- NOTE | 2018-03-28 18:23 | NUR ---
PATIENT LYING IN BED SLEEPING, AROUSABLE BY VOICE. NO DISTRESS NOTED. FLACC 0. DILTIAZEM NOT GIVEN AT THIS TIME DUE TO DECREASED BP AND LOW MAP. CONDITION UNCHANGED. SAFETY MEASURES IN PLACE, CALL LIGHT WITHIN REACH. WILL CONTINUE TO MONITOR.
--- NOTE | 2018-03-28 19:35 | NUR ---
RECEIVED REPORT FROM CHAN TRONCOSO DAYSHIFT NURSE. PT IN STABLE CONDITION. HE IS AO X1 RESPONDS TO LIGHT SHAKING AND MILD STERNAL RUB. PT IS NON VERBAL ONLY AND MAKES ONLY GROANS OR GRUNTS IN RESPONSE. PT FEEDING TUBE RUNNING AT 55 MLS/HR WITH NO RESIDUAL NOTED. PT IS INCONTINENT. HOB ELEVATED 35DEGREES. BED IN LOW POSITION AND BED ALARM ON. IV SITE PATENT AND RUNNING ORDERED. PT HAS NO S/S OF PAIN OR DISTRESS.
--- NOTE | 2018-03-28 19:35 | NUR ---
GAVE REPORT TO DENTIST/OWNER NURSE FOR CONTINUITY OF CARE. PATIENT IN STABLE CONDITION.
[2018-03-28] MEDS: TAMSULOSIN 0.4 MG CAP PO SCH (20:56)
[2018-03-28] MEDS: METOPROLOL 25 MG TAB PO SCH (20:57)
[2018-03-28] MEDS ORDERED: DILTIAZEM 60 MG TAB PO SCH (21:00)
--- NOTE | 2018-03-28 22:00 | NUR ---
PT IN LOW BED WITH HOB ELEVATED 35 DEGREES.IV SITE INTACT AND FLUIDS RUNNING ORDERED. NO S/S OF PAIN OR DISTRESS NOTED GT CHECKED FOR RESIDUAL AND NONE NOTED.
--- NOTE | 2018-03-28 23:50 | NUR ---
PT TURNED CHANGED AND REPOSITIONED. HOVB ELEVATED 45 DEGREES. IV SITE PATENT AND NO S/S OF PAIN OR DISTRESS.RUNNING FLUID ORDERED. SEIZURE PRECAUTIONS IN PLACE, NO SEIZURE ACTIVITY NOTED THIS SHIFT. BED IN LOWEST POSITION WITH ALL 4 SIDE RAILS UP.
[2018-03-29] VITALS: BP 103/61
[2018-03-29] MEDS: LEVOFLOXACIN 250 MG/D5 PREMIX 50 ML IV SCH ×2 (00:06→23:39)
[2018-03-29] MEDS: DILTIAZEM 60 MG TAB PO SCH ×5 (00:14→23:39)
--- NOTE | 2018-03-29 02:00 | NUR ---
PT WAS TURNED AND CHANGED AND REPOSITIONED FOR COMFORT. NO S/S OF PAIN OR DISTRESS NOTED. BED LOW AND ALL [address] UP IN [address]. NO SEIZURE ACTIVITY NOTED. PT AROUSABLE TO STERNAL RUB. IV SITE PATENT AND RUNNING FLUIDS ORRDERED.
[2018-03-29] MEDS: LINEZOLID 600MG PREMIX 300 ML IV SCH ×2 (02:08→13:40)
[2018-03-29] MEDS: NACL 0.9% 1,000 ML IV SCH ×3 (03:27→21:25)
[2018-03-29 04:00] VITALS: BP 81/45
[2018-03-29] MEDS ORDERED: NACL 0.9% 250 ML IV ONE (05:15)
--- NOTE | 2018-03-29 05:30 | NUR ---
PT B/P WAS LOW 81//45. CARDIZEM WAS HELD AND PT GIVEN 250MG OF NACL OPEN BOLUS TO INCREASE B/P.
[2018-03-29] MEDS: BLOOD GLUCOSE MONITORING 1 DEV DEV FS SCH ×4 (05:45→21:23)
[2018-03-29 06:42] LABS: HEMATOCRIT 32.3 % (36-52); HEMOGLOBIN 10.4 g/dL (12.0-18.0); MEAN CORPUSCULAR HEMOGLOBIN 28 pg (27-31); MEAN CORPUSCULAR HGB CONC 32 g/dL (33-37); MEAN CORPUSCULAR VOLUME 85.5 fL (80-94); PLATELET COUNT (AUTO) 475 K/uL (140-450); RED BLOOD CELL COUNT(AUTO) 3.78 MIL/uL (4.20-6.10); RED CELL DISTRIBUTION WIDTH 16.2 % (11.6-13.7); WHITE BLOOD COUNT (AUTO) 24.6 K/uL (4.8-10.8)
[2018-03-29 06:44] LABS: ANION GAP 11.2 (8-16); CHLORIDE 104 mmol/L (98-107); CREATININE 0.7 mg/dL (0.7-1.3); GLUCOSE 142 mg/dL (74-106); POTASSIUM 3.2 mmol/L (3.5-5.1); SODIUM SERUM 134 mmol/L (136-145); UREA NITROGEN, BLOOD 10 mg/dL (7-18)
[2018-03-29 07:04] LABS: LYMPHOCYTES % (MANUAL) 2 % (20-46); MONOCYTES % (MANUAL) 1 % (5-12)
--- NOTE | 2018-03-29 07:26 | NUR ---
REPORT GIVEN TO CHAN LAMBERT NURSE PT IN STABLE CODITION
--- NOTE | 2018-03-29 07:27 | NUR ---
RECEIVED REPORT FROM SUPERVISOR HAND SILVERING NURSE. PATIENT LYING DOWN IN BED SLEEPING, AROUSABLE BY VOICE. NO DISTRESS NOTED. FLACC 0. APHASIC, NON-VERBAL. RESPIRATIONS EVEN, UNLABORED, ON ROOM AIR WITH O2 SAT AT 95%. AAOX1, APHASIC, SKIN COLOR APPROPRIATE TO ETHNICITY, WARM TO TOUCH. SKIN IS INTACT. IV SITE INTACT, PATENT, AND RUNNING IVF PER MD ORDERS. ABDOMEN SOFT, NON-DISTENDED. GTUBE SITE INTACT, PATENT, AND INFUSING GTUBE FEEDING AT 55 ML/HR. NO RESIDUALS NOTED UPON ASPIRATION. SAFETY MEASURES IN PLACE, CALL LIGHT WITHIN REACH, FALL PREVENTIONS IN PLACE. WILL CONTINUE TO MONITOR.
[2018-03-29 08:00] VITALS: BP 111/55
[2018-03-29] MEDS: LOSARTAN 25 MG TAB PO SCH (09:00)
[2018-03-29] MEDS: BROMOCRIPTINE 2.5 MG TAB PO SCH ×2 (09:43→21:24)
[2018-03-29] MEDS: FINASTERIDE 5 MG TAB PO SCH (09:43)
[2018-03-29] MEDS: LACTOBACILLUS RHAMNOSUS GG 1 EACH CAP PO SCH (09:43)
[2018-03-29] MEDS: CALCIUM CARB/VIT-D 500 MG/200 IU 1 TAB PO SCH (09:43)
[2018-03-29] MEDS: ATORVASTATIN 20 MG TAB PO SCH (09:43)
[2018-03-29] MEDS: METOPROLOL 25 MG TAB PO SCH ×2 (09:43→21:24)
[2018-03-29] MEDS: DOCUSATE 100 MG/10 ML UDC PO SCH ×2 (09:44→21:23)
--- NOTE | 2018-03-29 09:50 | NUR ---
PATIENT LYING DOWN IN BED SLEEPING, AROUSABLE BY VOICE. HAS SPIKES OF ST AT 180 HIGHEST. WILL NOTIFY MD AND CONTINUE TO MONITOR. SCHEDULED MEDICATIONS DUE GIVEN. FLACC 0. SAFETY MEASURES IN PLACE, CALL LIGHT WITHIN REACH. WILL CONTINUE TO MONITOR.
[2018-03-29] MEDS ORDERED: POTASSIUM CHLORIDE 20% 40 MEQ/15 ML UDC GT SCH (11:00)
[2018-03-29 12:00] VITALS: BP 130/62
[2018-03-29] MEDS: INSULIN LISPRO SLIDING SCALE 100 UNITS/ML VIAL SUBQ PRN (12:16)
--- NOTE | 2018-03-29 12:25 | NUR ---
PATIENT LYING IN BED SLEEPING, AROUSABLE BY VOICE. NO DISTRESS NOTED. FLACC 0. SCHEDULED MEDICATIONS DUE GIVEN. SAFETY MEASURES IN PLACE, CALL LIGHT WITHIN REACH. WILL CONTINUE TO MONITOR.
--- NOTE | 2018-03-29 13:44 | NUR ---
PATIENT LYING DOWN IN BED SLEEPING, AROUSABLE BY VOICE. NO DISTRESS NOTED. FLACC 0. SCHEDULED ANTIBIOTICS DUE GIVEN. SAFETY MEASURES IN PLACE, CALL LIGHT WITHIN REACH. WILL CONTINUE TO MONITOR.
[2018-03-29 16:00] VITALS: BP 114/57
--- NOTE | 2018-03-29 18:03 | NUR ---
PATIENT LYING DOWN IN BED SLEEPING. NO DISTRESS NOTED. FLACC 0. CONDITION UNCHANGED. SCHEDULED MEDICATIONS DUE GIVEN. SAFETY MEASURES IN PLACE, CALL LIGHT WITHIN REACH. WILL CONTINUE TO MONITOR.
--- NOTE | 2018-03-29 19:31 | NUR ---
GAVE REPORT TO SPECIALIST FIELD ENGINEER NURSE FOR CONTINUITY OF CARE. PATIENT IN STABLE CONDITION.
--- NOTE | 2018-03-29 19:35 | NUR ---
RECEIVED REPORT FROM DAY SHIFT, PATIENT WAS SLEEPING, BUT EASY TO AROUSE. RESPIRATION EVEN BUT SHALLOW. O2SAT 95% ON ROOM AIR. PATIENT IS NON-VERBAL, BUT FOLLOW SIMPLE COMMANDS. IV TO THE LT FOREARM SALINE LOCK, IV TO THE LT AC PATENT AND INTACT, INFUSING NS AT 110ML/HR. G-TUBE IN PLACE, PATENT, WITH CONTINUOUS FEEDING AT 55ML/HR. CALL LIGHT WITHIN REACH, HEAD OF BED ELEVATED, SAFETY MEASURE ENSURED, WILL CONTINUE TO MONITOR.
[2018-03-29 20:00] VITALS: BP 104/44
--- NOTE | 2018-03-29 20:15 | NUR ---
REPOSITIONED PATIENT WITH THE CREDENTIALING ANALYST, PATIENT KEPT CLEAN AND DRY. SAFETY MEASURE ENSURED, WILL CONTINUE TO MONITOR.
[2018-03-29] MEDS: TAMSULOSIN 0.4 MG CAP PO SCH (21:24)
--- NOTE | 2018-03-29 21:24 | NUR ---
NO RESIDUAL, G-TUBE PATENT, BP 115/49, HR 130, LOPRESSOR ADMINISTERED ORDERED. HEAD OF BED ELEVATED CALL LIGHT WITHIN REACH, SAFETY MEASURE ENSURED, WILL CONTINUE TO MONITOR.
--- NOTE | 2018-03-29 22:35 | NUR ---
IV TO THE LT AC, INFILTRATED, STARTED NEW IV 24 G TO THE LEFT HAND, PATIENT TOLERATED WELL. OLD IV TAKEN OUT, TIP INTACT, NO ACTIVE BLEEDING AT THE IV SITE. REPOSITIONED PATIENT WITH THE SENIOR IT BUSINESS ANALYST, CALL LIGHT WITHIN REACH, SAFETY MEASURE ENSURED, HEAD OF BED ELEVATED, WILL CONTINUE TO MONITOR.
--- NOTE | 2018-03-29 23:35 | NUR ---
HR 189, MADE DR. PYLE AWARE. EKG STAT ORDERED.
--- NOTE | 2018-03-29 23:40 | NUR ---
BP 151/91, HR 180, CARDIZEM ADMINISTERED ORDERED. RT AT THE BEDSIDE, NON-REBREATHER 15L O2 APPLIED, O2SAT 100%.
[2018-03-30] VITALS (43 sets, daily range): BP systolic 95–189; BP diastolic 30–91
--- NOTE | 2018-03-30 00:06 | NUR ---
BP 145/64, HR 130, PATIENT BREATHING WITH ACCESSORY MUSCLE, NON-REBREATHER O2 15L APPLIED, O2SAT 100% MADE DR. PYLE AWARE. NO ORDER RECEIVED AT THIS TIME.
[2018-03-30] MEDS ORDERED: ALBUTEROL SULFATE/IPRATROPIU 3 ML SOL IH PRN (00:15)
--- NOTE | 2018-03-30 00:20 | NUR ---
PT ON NRB MASK FOR DIFFICULTY BREATHING. RN AND MD AT BEDSIDE. EKG DONE. WILL CONTINUE TO MONITOR.
--- NOTE | 2018-03-30 00:50 | NUR ---
REPOSITIONED PATIENT WITH THE QUALITY ASSURANCE INSPECTOR, HEAD OF BED ELEVATED, SAFETY MEASURE ENSURED, WILL CONTINUE TO MONITOR.
[2018-03-30] MEDS: ALBUTEROL SULFATE/IPRATROPIU 3 ML SOL IH SCH ×4 (01:10→21:15)
[2018-03-30] MEDS: ACETAMINOPHEN 325 MG TAB PO PRN (01:24)
--- NOTE | 2018-03-30 01:42 | NUR ---
HHN TX GIVEN. ABG DONE BY RT GARCIA. RESULTS GIVEN TO MD PYLE. RN AND MD AT BEDSIDE. PT BACK ON NRB MASK WITH SPO2 OF 98%. PT HAS LABORED BREATHING. WILL CONTINUE TO MONITOR.
--- NOTE | 2018-03-30 01:43 | NUR ---
TEMP 100.9, ICE PACKS UNDER ARMPITS AND SPONGE BATH GIVEN WELL. NOTED BLEEDING FROM G-TUBE SITE, MADE DR. EDENILSON BEASLEY, MD ASSESSED PATIENT AT THE BEDSIDE, TYLENOL GIVEN ORDERED. WILL CONTINUE TO MONITOR.
--- NOTE | 2018-03-30 01:55 | NUR ---
DR. MAN AND DR. PYLE AT THE BEDSIDE ASSESS THE PATIENT.
[2018-03-30] MEDS: LINEZOLID 600MG PREMIX 300 ML IV SCH ×2 (01:56→14:56)
--- NOTE | 2018-03-30 02:10 | NUR ---
FEEDING HELD AT THIS TIME. DR. PYLE IS AWARE AND SAID," THAT'S FINE."
--- NOTE | 2018-03-30 02:19 | NUR ---
TEMP 99.7 NON-REBREATHER MASK IS ON, O2 15L, O2SAT 99%, CALL LIGHT WITHIN REACH, HEAD OF BED ELEVATED, SAFETY MEASURE ENSURED, WILL CONTINUE TO MONITOR.
--- NOTE | 2018-03-30 02:26 | NUR ---
PT ON NRB MASK. FIO2 100% SPO2 98%. PER MD PYLE DO NOT PUT PT ON BIPAP YET. BIPAP STANDBY AT BEDSIDE. RN, RAILROAD SHOP INSPECTOR, AND RT RADHA AT BEDSIDE. PER MD PYLE HE WILL CHANGE BIPAP ORDER FROM ROUTINE TO PRN. WILL CONTINUE TO MONITOR PT.
--- NOTE | 2018-03-30 04:36 | NUR ---
REPOSITIONED PATIENT WITH THE EMULSION COATER, PATIENT TOLERATED WELL. HEAD OF BED ELEVATED, CALL LIGHT WITHIN REACH, SAFETY MEASURE ENSURED, WILL CONTINUE TO MONITOR.
--- NOTE | 2018-03-30 05:05 | NUR ---
BLADDER SCAN INDICATED 430ML URINE, BP 126/66, HR 101, MADE DR. EDENILSON BEASLEY MD SAID," GIVE THE SCHEDULED CARDIZEM, AND I WILL PUT AN ORDER FOR STRAIGHT CATHETERIZATION."
[2018-03-30] MEDS: DILTIAZEM 60 MG TAB PO SCH ×4 (05:25→23:27)
--- NOTE | 2018-03-30 05:50 | NUR ---
URINE OUTPUT 550ML. BP 102/67, HR 98, O2SAT 98%, PATIENT IS SLEEPING, NON-REBREATHER MASK O2 15L. HEAD OF BED ELEVATED, SAFETY MEASURE ENSURED, WILL CONTINUE TO MONITOR.
--- NOTE | 2018-03-30 06:26 | NUR ---
BLOOD SUGAR 163, HOLD HUMALOG BECAUSE PATIENT IS UNABLE TO EAT AND FEEDING IS HELD.
--- NOTE | 2018-03-30 06:39 | NUR ---
CALLED RADIOLOGY DEPARTMENT REGARDING THE CHEST X-RAY, KISHORE SAID," I WILL CHECK WITH THE FORCE ADJUSTMENT SUPERVISOR."
[2018-03-30] MEDS: BLOOD GLUCOSE MONITORING 1 DEV DEV FS SCH ×4 (06:46→21:31)
[2018-03-30 06:50] LABS: HEMATOCRIT 31.6 % (36-52); HEMOGLOBIN 10.3 g/dL (12.0-18.0); MEAN CORPUSCULAR HEMOGLOBIN 28 pg (27-31); MEAN CORPUSCULAR HGB CONC 33 g/dL (33-37); MEAN CORPUSCULAR VOLUME 84.7 fL (80-94); PLATELET COUNT (AUTO) 483 K/uL (140-450); RED BLOOD CELL COUNT(AUTO) 3.73 MIL/uL (4.20-6.10); RED CELL DISTRIBUTION WIDTH 16.1 % (11.6-13.7)
--- NOTE | 2018-03-30 06:58 | NUR ---
RECEIVED PT ON 100% NRB PO02 .99 CHANGED PT TO .50 VENTI MASK BREATH SOUNDS CLEAR NO RESP DISTRESS AT THIS TIME HHN RX GIVEN WILL CONTINUE TO MONITOR PT
[2018-03-30 07:11] LABS: ANION GAP 12.8 (8-16); CHLORIDE 103 mmol/L (98-107); CREATININE 0.8 mg/dL (0.7-1.3); GLUCOSE 174 mg/dL (74-106); POTASSIUM 3.8 mmol/L (3.5-5.1); SODIUM SERUM 132 mmol/L (136-145); UREA NITROGEN, BLOOD 18 mg/dL (7-18)
[2018-03-30 07:14] LABS: WHITE BLOOD COUNT (AUTO) 33.9 K/uL (4.8-10.8)
[2018-03-30 07:15] LABS: EOSINOPHILS % (MANUAL) 3 % (0-4); LYMPHOCYTES % (MANUAL) 4 % (20-46); MAGNESIUM 1.7 mg/dL (1.8-2.4); MONOCYTES % (MANUAL) 2 % (5-12); PHOSPHORUS 2.1 mg/dL (2.5-4.9)
--- NOTE | 2018-03-30 07:32 | NUR ---
ENDORSED PLAN OF CARE TO DAY SHIFT RN, PATIENT IS RESTING IN BED, IN STABLE CONDITION.
--- NOTE | 2018-03-30 07:33 | NUR ---
RECEIVED REPORT FROM SOFTWARE TECHNICAL LEAD NURSE, PT IS RESTING IS BEDBOUND, AAOX1, APHASIC, LETHARGIC, PT IS ON O2 3L NC, PT IS HAVING LABORED BREATHING, RR:24, O2 SAT:97%, PT HAS IV ON HIS LEFT HAND, PATENT, INTACT, FLUSHING WELL, SKIN IS INTACT, DISCUSSED PLAN OF CARE WITH PT, PT UNABLE TO VERBALIZE UNDERSTANDING, SAFETY/FALL/SUICIDE PRECAUTIONS ARE IN PLACE, CALL LIGHT IS WITHIN REACH, WILL CONTINUE TO MONITOR.
--- NOTE | 2018-03-30 08:30 | NUR ---
PATIENT'S FAMILY IS AT PATIENT'S BEDSIDE AT THIS TIME. FAMILY INSTRUCTED ON HOW TO PRESS CALL LIGHT IN CASE THEY NEEDED ANYTHING. FAMILY VERBALIZED UNDERSTANDING "OK"
--- NOTE | 2018-03-30 08:35 | NUR ---
PATIENT'S HEART RATE AT 150, DR. QUIROS NOTIFIED. PER DR. NOVOA GIVE THE SCHEDULED LOPRESSOR NOW AND CONTINUE TO MONITOR PATIENTS VITALS.
[2018-03-30] MEDS: DOCUSATE 100 MG/10 ML UDC PO SCH ×2 (08:47→21:30)
[2018-03-30] MEDS: ATORVASTATIN 20 MG TAB PO SCH (08:48)
[2018-03-30] MEDS: FINASTERIDE 5 MG TAB PO SCH (08:48)
[2018-03-30] MEDS: METOPROLOL 25 MG TAB PO SCH (08:48)
[2018-03-30] MEDS: CALCIUM CARB/VIT-D 500 MG/200 IU 1 TAB PO SCH (08:48)
[2018-03-30] MEDS: LACTOBACILLUS RHAMNOSUS GG 1 EACH CAP PO SCH (08:48)
[2018-03-30] MEDS: BROMOCRIPTINE 2.5 MG TAB PO SCH ×2 (08:55→21:49)
--- NOTE | 2018-03-30 09:00 | NUR ---
G-TUBE RESIDUAL WAS CHECKED, NO RESIDUAL NOTED. PT DUE MEDICATIONS WERE GIVEN, PT TOLERATED WELL. PATIENT'S IS AT BEDSIDE, WILL CONTINUE TO MONITOR.
--- NOTE | 2018-03-30 11:53 | NUR ---
CALLED THE PATIENT'S SON (AMELIA) I DID SPEAK WITH HIM, I LET HIM KNOW I WAS CALLING FROM [facility] TO LET HIM KNOW THAT DR. QUIROS WANTED TO SPEAK TO HIM REGARDING THE PT GETTING A PICC LINE OR CENTRAL LINE AND TO GIVE CONSENT FOR CT SCAN WITH CONTRAST. PER AMELIA HE WILL BE HERE "ABOUT 1 OR 1:30 PM."
[2018-03-30] MEDS ORDERED: MEROPENEM 500 MG in NACL 0.9% 50 ML IV SCH (13:00)
[2018-03-30] MEDS: MEROPENEM 500 MG in NACL 0.9% 50 ML IV SCH ×3 (13:30→21:30)
--- NOTE | 2018-03-30 13:30 | NUR ---
DR. YIP SPEAKING WITH PATIENT'S SON REGARDING TRANSFERRING PT TO ICU, PICC LINE AND CT-SCAN WITH CONTRAST.
--- NOTE | 2018-03-30 13:35 | NUR ---
03/30/18 RD FOLLOW UP COMPLETED PLEASE REFER TO NUTRITION PROGRESS NOTE UNDER CARE ACTIVITY FOR ESTIMATED NUTRITIONAL NEEDS. 1. CONTINUE TUBE FEEDING THROUGH G-TUBE: DIABETISOURCE AC AT 55 ML/HR WITH 35ML Q4H WATER FLUSHES TOLERATED 2. RD TO FOLLOW-UP 2-3 DAYS, HIGH RISK ALENA VINES, RD
--- NOTE | 2018-03-30 13:40 | NUR ---
PT TRANSFERRED TO ICU, PATIENT'S SON (AMELIA) IS AWARE. PT STABLE UPON TRANSFER. REPORT GIVEN TO KARYNA WHITFIELD.
[2018-03-30] MEDS ORDERED: AMIODARONE 150 MG in DEXTROSE 5% 100 ML IV SCH (14:00)
[2018-03-30] MEDS ORDERED: AMIODARONE 450 MG in DEXTROSE 5% 250 ML IV SCH (14:10)
--- NOTE | 2018-03-30 14:10 | NUR ---
RECEIVED PATIENT FROM [facility], REPORT GIVEN BY [facility] RN AT BEDSIDE FOR CONTINUITY OF CARE. PATIENT IS AAOX1, UNABLE TO MAKE NEEDS KNOWN, OPENS EYES SPONTANEOUSLY. PATIENT SKIN IS WARM AND DRY, INTACT. HE HAS AN PERIPHERAL IV SITE TO HIS LEFT HAND, 24 GAUGE, ASYMPTOMATIC, INTACT, PATENT. PATIENT IS TACHYPNEIC, ON NASAL CANNULA AT 3LPM. HE IS TACHYCARDIC, AFIB ON MONITOR. HE HAS A GTUBE IN PLACE, WITH TUBE FEEDING, DIABETICSOURCE, ON HOLD. PATIENT IS NPO FOR CT SCAN WITH IV CONTRAST. HOB IS 30 DEGREES, CALL LIGHT IS WITHIN REACH. WILL CONTINUE TO MONITOR.
--- NOTE | 2018-03-30 16:15 | NUR ---
PATIENT TURNED AND REPOSITIONED, TOLERATED WELL. NO SIGNS OF DISTRESS NOTED, WILL CONTINUE TO MONITOR
--- NOTE | 2018-03-30 17:27 | NUR ---
PICC LINE RN AWARE OF PROCEDURE, STATES THAT HE WILL CALL BACK WHEN HE IS 10 MINS FROM HOSPITAL.
--- NOTE | 2018-03-30 17:40 | NUR ---
DR. MANN IN TO SEE AND EXAMINE PATIENT, UPDATED ON PATIENT'S CONDITION. WILL FOLLOW UP ON ANY ORDERS.
--- NOTE | 2018-03-30 18:15 | NUR ---
DR. MANN INTUBATED PATIENT, RTS AT BEDSIDE, PATIENT TOLERATED PROCEDURE WELL. NO SIGNS OF DISTRESS NOTED. WILL CONTINUE TO MONITOR
--- NOTE | 2018-03-30 18:52 | NUR ---
INSERTED DELGADO CATHETER ORDERED. DELGADO CATHETER IS IN PLACE, BALLOON INFLATED, CLEAR YELLOW URINE 100 ML IN DELGADO BAG. PATIENT TOLERATED PROCEDURE WELL. NO SIGNS OF DISTRESS NOTED
--- NOTE | 2018-03-30 18:57 | NUR ---
PATIENT CONVERTED FROM AFIB TO SINUS RHYTHM ON STIFF LEG DERRICK OPERATOR, NO SIGNS OF DISTRESS NOTED AT THIS TIME. WILL CONTINUE TO MONITOR
[2018-03-30] MEDS ORDERED: SUCCINYLCHOLINE CHLORIDE 200 MG/10 ML VIAL IVP SCH (19:00)
[2018-03-30] MEDS ORDERED: ETOMIDATE 20 MG/10 ML VIAL IVP SCH (19:00)
--- NOTE | 2018-03-30 19:00 | NUR ---
PATIENT INTUBATED @[address] AND [address] MANN. ET TUBE 7.5CM SECURED AT 24CM AT THE LIP WITH AN ANCHORFAST. COLOR CHANGE OF GOLD SEEN ON CO2 DETECTOR. CUFF INFLATED. B/S: HEARD GOOD AERATION BILATERALLY AND NO AIR MOVEMENT IN THE STOMACH. PATIENT PLACED ONTO VENT, MODE: AC/VC, TIDAL VOLUME 300, RATE 14, PEEP 5, FIO2 100%. SPO2 97% AND HEART RATE 78. PATIENT APPEARS COMFORTABLE. WILL CONTINUE TO MONITOR.
--- NOTE | 2018-03-30 19:15 | NUR ---
REPORT GIVEN TO CRUCIBLE FURNACE TENDER RN FOR CONTINUITY OF CARE, PATIENT PRESENTS NO SIGNS OF DISTRESS AT THIS TIME.
--- NOTE | 2018-03-30 19:20 | NUR ---
RECEIVED BEDSIDE REPORT FROM MORNING SHIFT NURSE, PATIENT OPENS HIS EYES SPONTANEOUSLY, RESPONSIVE TO LIGHT PAIN. ETT TO VENT WITH SETTING A/C MODE, FIO2 100%, VT 300, RATE 14, PEEP 5. BILATERAL LUNG SOUND RHONCHI WITH TACHYPNEIC . PERIPHERAL LINE TO LEFT HAND 24G NOTED, SR ON THE MONITOR WITH AMIODARONE DRIP 1MG/MIN. G TUBE IN PLACE, HOLDING TUBE FEEDING AT THIS TIME FOR CT ANGIO CHEST, ABDOMEN AND PELVIC. ACTIVE BOWEL SOUND HEARD FROM ALL [address] DELGADO CATH IN PLACE DRAINING CLEAR YELLOW URINE. SKIN IS INTACT. HOB ELEVATED 30 DEGREE, BED IN LOW POSITION. CONTINUE TO MONITOR.
--- NOTE | 2018-03-30 19:40 | NUR ---
PICC LINE NURSE IS AT BEDSIDE, TIME OUT DONE. PICC LINE INSERTION STARTED AT 1940. NO ACUTE DISTRESS NOTED. WILL CONTINUE TO MONITOR.
--- NOTE | 2018-03-30 20:45 | NUR ---
TRANSFERRED PATIENT FOR CT CHEST ANGIO AND CT ABDOMEN/PELVIS. NO ACUTE DISTRESS NOTED AT THIS TIME.
--- NOTE | 2018-03-30 21:10 | NUR ---
CT CHEST DONE, RETURNED TO ICU. PATIENT TOLERATED WELL WITH THE PROCEDURE. NO ACUTE DISTRESS NOTED. Addendum: 03/30/18 at 2243 by Austin Negro RN AND RESUMED THE TUBE FEEDING DIABETIC SOURCE 55ML/HR AND H2O FLUSH 35ML Q4H. PLACEMENT CHECKED, NO RESIDUAL NOTED.
[2018-03-30] MEDS: TAMSULOSIN 0.4 MG CAP PO SCH (21:30)
[2018-03-30] MEDS: LORazepam 2 MG/ML VIAL IVP PRN (21:31)
--- NOTE | 2018-03-30 21:31 | NUR ---
PATIENT'S BP 175/73 AND HR 108 NOTED, ADMINISTERED SCHEDULE MEDICATIONS AND ATIVAN AT THIS TIME ORDERED. PATIENT TOLERATED WELL. WILL CONTINUE TO MONITOR. Addendum: 03/30/18 at 2312 by Austin Negro RN BS CHECKED [address] LAZO AT BEDSIDE TO CHECK THE PATIENT AT 2130, WILL FOLLOW THE ORDERS
[2018-03-30] MEDS: NACL 0.9% 1,000 ML IV SCH (21:39)
--- NOTE | 2018-03-30 21:45 | NUR ---
REPORTED CHEST X-RAY FOR PICC LINE PLACEMENT TO DR. PYLE. RECEIVED ORDER TO OK TO USE PICC LINE.
--- NOTE | 2018-03-30 23:10 | NUR ---
PATIENT CLOSED HIS EYES AT THIS TIME. RESPONSIVE TO LIGHT PAIN. TACHYPNEIC NOTED WITH O2 SAT 100%. NO ACUTE DISTRESS NOTED. FLACC 0. WILL CONTINUE TO MONITOR.
[2018-03-30] MEDS: MORPHINE SULFATE 2 MG/ML SYR IVP PRN (23:28)
--- NOTE | 2018-03-30 23:55 | NUR ---
TOOK PATIENT TO CT @2024. BAGGED PATIENT EN ROUTE TO CT, AT CT AND BACK TO ROOM. TREATMENT GIVEN INLINE @2104 AND SUCTIONED. ABG OBTAINED @2144. PROVIDED RESULTS TO RN AT BEDSIDE AND PAGED DR. MANN. PO2 142.4 DECREASED FIO2 FROM 100% TO 60% AND ADVISED RN.
[2018-03-31] VITALS (78 sets, daily range): BP systolic 96–170; BP diastolic 39–77
--- NOTE | 2018-03-31 00:10 | NUR ---
ADMINISTERED SCHEDULED MEDICATION ORDERED, CHECKED LESS THAN 10CC RESIDUAL NOTED. WILL CONTINUE TO MONITOR.
[2018-03-31] MEDS: LINEZOLID 600MG PREMIX 300 ML IV SCH ×2 (01:50→13:45)
[2018-03-31] MEDS: ALBUTEROL SULFATE/IPRATROPIU 3 ML SOL IH SCH ×4 (01:50→18:47)
--- NOTE | 2018-03-31 02:00 | NUR ---
ADMINISTERED SCHEDULED IV ABX ORDERED, TOLERATED WELL. RR 30 WITH O2 SAT 97% NOTED. ST ON THE MONITOR WITH AMIODARONE DRIP. CONTINUE TO MONITOR.
[2018-03-31] MEDS: MORPHINE SULFATE 2 MG/ML SYR IVP PRN ×2 (02:47→14:33)
--- NOTE | 2018-03-31 02:47 | NUR ---
HR 121, BP 170/72, RR 36 NOTED, ADMINISTERED PRN MORPHINE AT THIS TIME. WILL CONTINUE TO MONITOR.
--- NOTE | 2018-03-31 04:18 | NUR ---
HR 110, BP 106/55, RR 34, O2SAT 97% NOTED. ST ON THE MONITOR WITH AMIODARONE DRIP. WILL CONTINUE TO MONITOR.
[2018-03-31] MEDS: DILTIAZEM 60 MG TAB PO SCH ×4 (05:21→23:09)
--- NOTE | 2018-03-31 05:30 | NUR ---
PATIENT OPEN HIS EYES BUT NOT TRACT, UNABLE TO FOLLOW COMMANDS. ADMINISTERED SCHEDULED MEDICATION ORDERED, TOLERATED WELL. HR 109, RR 34, BP 121/53 TACHYPNEA NOTED. WILL CONTINUE TO MONITOR.
[2018-03-31] MEDS ORDERED: HYDROcodone/APAP 7.5/325 MG 1 TAB PO PRN (06:15)
--- NOTE | 2018-03-31 06:15 | NUR ---
DR. CAMARGO AT BEDSIDE TO CHECK THE PATIENT AND GIVEN UPDATES FROM NURSE. WILL FOLLOW THE ORDERS AND CONTINUE TO MONITOR.
--- NOTE | 2018-03-31 06:19 | NUR ---
RECEIVED PT ON NOTED SETTINGS ON CARESCAPE ALARMS ARE ON AND AUDIBLE PTS ET TUBE SIZE 7.5 IS ECURE ANCHOR FAST IN PLACE BS CLEAR AIRWAY IS PATENT HHN GIVEN I\L WITH 3 MG DUONEB NO ADVERSE EFFECTS NOTED VENT PLUGGED INTO RED OUTLET BMV HOB PT IN HF ASLEEP
[2018-03-31] MEDS ORDERED: BISACODYL 5 MG TABEC PO SCH (06:30)
[2018-03-31 06:59] LABS: RED CELL DISTRIBUTION WIDTH 16.4 % (11.6-13.7)
--- NOTE | 2018-03-31 07:03 | NUR ---
RECEIVED REPORT FOR CONTINUITY OF CARE AT BEDSIDE FROM OFF PREMISE SERVICE REPRESENTATIVE RN. PATIENT IS AAOX1, OPENS EYES SPONTANEOUSLY, NONVERBAL. SKIN IS WARM AND DRY, INTACT. PATIENT HAS PICC LINE TO BEAR AND PERIPHERAL IV SITE TO LEFT HAND, 24 GAUGE.HE IS TACHYPNEIC AND TACHYCARDIC, ST ON MONITOR. PATIENT HAS ETT TO VENT, SETTINGS ARE AT A/C VC 14, FIO2 60, TV 300, PEEP 6. HE HAS A GTUBE TO LUQ, NO RESIDUAL NOTED, HE IS CURRENTLY NPO EXCEPT MEDS. PATIENT HAS DELGADO CATHETER IN PLACE TO CLEAR YELLOW URINE. HOB IS ELEVATED TO 30 DEGREES IN LOW POSITION. CALL LIGHT IS WITHIN REACH, NO SIGNS OF DISTRESS NOTED AT THIS TIME, WILL CONTINUE TO MONITOR.
[2018-03-31 07:04] LABS: HEMATOCRIT 31.2 % (36-52); HEMOGLOBIN 10.1 g/dL (12.0-18.0); MEAN CORPUSCULAR HEMOGLOBIN 28 pg (27-31); MEAN CORPUSCULAR HGB CONC 32 g/dL (33-37); MEAN CORPUSCULAR VOLUME 86.3 fL (80-94); PLATELET COUNT (AUTO) 369 K/uL (140-450); RED BLOOD CELL COUNT(AUTO) 3.61 MIL/uL (4.20-6.10)
[2018-03-31 07:08] LABS: WHITE BLOOD COUNT (AUTO) 56.7 K/uL (4.8-10.8)
[2018-03-31] MEDS: BLOOD GLUCOSE MONITORING 1 DEV DEV FS SCH ×4 (07:11→20:56)
[2018-03-31 07:43] LABS: CREATININE 1.1 mg/dL (0.7-1.3); GLUCOSE 118 mg/dL (74-106); UREA NITROGEN, BLOOD 18 mg/dL (7-18)
[2018-03-31 07:49] LABS: MAGNESIUM 1.8 mg/dL (1.8-2.4); PHOSPHORUS 2.1 mg/dL (2.5-4.9)
[2018-03-31 07:50] LABS: ANION GAP 18.6 (8-16); CARBON DIOXIDE 16.3 mmol/L (21-32); CHLORIDE 99 mmol/L (98-107); POTASSIUM 3.9 mmol/L (3.5-5.1); SODIUM SERUM 130 mmol/L (136-145)
[2018-03-31 08:19] LABS: LYMPHOCYTES % (MANUAL) 2 % (20-46); MONOCYTES % (MANUAL) 1 % (5-12)
--- NOTE | 2018-03-31 08:21 | NUR ---
PATIENT'S TEMP WAS 100.9, ADMINISTERED ACETAMINOPHEN PRN THROUGH GTUBE ORDERED. PATIENT TOLERATED WELL.
[2018-03-31] MEDS: ACETAMINOPHEN 325 MG TAB PO PRN (08:26)
[2018-03-31] MEDS ORDERED: BISACODYL 10 MG SUPP RC SCH (08:30)
--- NOTE | 2018-03-31 08:33 | NUR ---
PATIENT'S FAMILY AT BEDSIDE, UPDATED ON PATIENT'S CONDITION. NO SIGNS OF DISTRESS NOTED AT THIS TIME. CALL LIGHT WITHIN REACH WILL CONTINUE TO MONITOR.
--- NOTE | 2018-03-31 09:03 | NUR ---
DECREASED FIO2 TO 50
[2018-03-31] MEDS: LACTOBACILLUS RHAMNOSUS GG 1 EACH CAP PO SCH (09:06)
[2018-03-31] MEDS: CALCIUM CARB/VIT-D 500 MG/200 IU 1 TAB PO SCH (09:06)
[2018-03-31] MEDS: ATORVASTATIN 20 MG TAB PO SCH (09:06)
[2018-03-31] MEDS: BROMOCRIPTINE 2.5 MG TAB PO SCH ×2 (09:06→20:18)
[2018-03-31] MEDS: MEROPENEM 500 MG in NACL 0.9% 50 ML IV SCH ×2 (09:06→20:18)
[2018-03-31] MEDS: DOCUSATE 100 MG/10 ML UDC PO SCH ×2 (09:06→20:17)
[2018-03-31] MEDS: NACL 0.9% 1,000 ML IV SCH ×3 (09:07→16:00)
--- NOTE | 2018-03-31 09:09 | NUR ---
ADMINSTERED SCHEDULED MEDS ORDERED. PATIENT TOLERATED WELL, NO SIGNS OF DISTRESS NOTED AT THIS TIME. WILL CONTINUE TO MONITOR.
--- NOTE | 2018-03-31 09:29 | NUR ---
US TECH AT BEDSIDE, NO SIGNS OF DISTRESS NOTED AT THIS TIME. CALL LIGHT WITHIN REACH, WILL CONTINUE TO MONITOR.
[2018-03-31] MEDS: FINASTERIDE 5 MG TAB PO SCH (09:30)
--- NOTE | 2018-03-31 10:28 | NUR ---
DR. CADENA AND RESIDENT PHYSICIANS AT BEDSIDE, SPOKE WITH REGARDING PATIENT'S CONDITION. PATIENT'S WANTS DOCTORS TO SPEAK WITH SON WHEN HE COMES AROUND 1PM. NO SIGNS OF DISTRESS NOTED AT THIS TIME. WILL FOLLOW UP ON ANY ORDERS.
[2018-03-31] MEDS: LORazepam 2 MG/ML VIAL IVP PRN ×3 (10:47→21:38)
--- NOTE | 2018-03-31 11:38 | NUR ---
ADMINISTERED SCHEDULED MEDS ORDERED VIA GTUBE, 300 ML RESIDUAL NOTED. WILL CONTINUE TO MONITOR.
--- NOTE | 2018-03-31 13:17 | NUR ---
TURNED AND REPOSITIONED PATIENT, HEELS OFF LOADED. PROVIDED ORAL CARE. NO BOWEL MOVEMENT NOTED, SKIN IS WARM AND DRY AND INTACT. CALL LIGHT WITHIN REACH, FAMILY AT BEDSIDE. WILL CONTINUE TO MONITOR
--- NOTE | 2018-03-31 13:18 | NUR ---
RT AT BEDSIDE, NO SIGNS OF DISTRESS NOTED AT THIS TIME. WILL CONTINUE TO MONITOR
--- NOTE | 2018-03-31 13:35 | NUR ---
DR. CAMARGO IN TO SEE AND EXAMINE PATIENT'S EDEMA OF LEFT EXTREMITY, WAITING FOR SON TO COME TO UPDATE ON PATIENT'S PLAN OF CARE.
--- NOTE | 2018-03-31 13:55 | NUR ---
PATIENT'S DAUGHTER AND GRANDDAUGHTER AT BEDSIDE, UPDATED ON PATIENT'S CONDITION. WILL CONTINUE TO MONITOR
--- NOTE | 2018-03-31 14:02 | NUR ---
IN TO SPEAK WITH FAMILY ABOUT PATIENT'S PLAN OF CARE AT BEDSIDE.
--- NOTE | 2018-03-31 14:42 | NUR ---
DISCONTINUED PERIPHERAL IV SITE TO LEFT HAND, CANNULA INTACT. PATIENT TOLERATED WELL. NO S/S OF INFECTION TO SITE. WILL CONTINUE TO MONITOR.
--- NOTE | 2018-03-31 14:50 | NUR ---
AMNIODARONE DRIP COMPLETE, SINUS RHYTHM ON HEAVY LINE TECHNICIAN, HR 87, RESPIRATIONS 28, SPO2 99, BP IS 108/54. NO SIGNS OF DISTRESS NOTED AT THIS TIME, PATIENT IS OBSERVED SLEEPING, CALL LIGHT WITHIN REACH. WILL CONTINUE TO MONITOR.
--- NOTE | 2018-03-31 14:56 | NUR ---
DR. CAMARGO AWARE OF AMNIODARONE DRIP COMPLETE AND PATIENT'S RHYTHM IS CONTROLLED. WILL FOLLOW UP ON ANY ORDERS.
--- NOTE | 2018-03-31 16:08 | NUR ---
PATIENT TURNED AND REPOSITIONED, TOLERATED WELL. HAD A SMEAR BM. ORAL CARE PROVIDED, TOLERATED WELL. HOB IS 30 DEGREES, CALL LIGHT IS WITHIN REACH. NO SIGNS OF DISTRESS NOTED. WILL CONTINUE TO MONITOR
--- NOTE | 2018-03-31 17:01 | NUR ---
IN TO SEE AND EXAMINE PATIENT, UPDATED ON PATIENT'S CONDITION. WILL FOLLOW UP ON ANY ORDERS.
--- NOTE | 2018-03-31 17:10 | NUR ---
ADMINISTERED ATIVAN PRN PER ORDER. PATIENT TOLERATED WELL. NO SIGNS OF DISTRESS NOTED AT THIS TIME. CALL LIGHT WITHIN REACH. WILL CONTINUE TO MONITOR CLOSELY.
--- NOTE | 2018-03-31 18:05 | NUR ---
TURNED AND REPOSITIONED PATIENT, CHANGED LINENS AND GOWN, CHANGED GTUBE SITE DRESSING. PATIENT TOLERATED WELL. ORAL CARE PROVIDED, NO SIGNS OF DISTRESS NOTED. HOB IS 30 DEGREES, CALL LIGHT WITHIN REACH. WILL CONTINUE TO MONITOR
--- NOTE | 2018-03-31 18:35 | NUR ---
DR. GIFFORD IN TO SEE AND EXAMINE PATIENT, UPDATED ON PATIENT'S CONDITION. WILL FOLLOW UP ON ANY ORDERS.
--- NOTE | 2018-03-31 18:45 | NUR ---
SAO2-99% VIA PULSE-OX, DECREASED FIO2 TO 40%
--- NOTE | 2018-03-31 19:07 | NUR ---
ENDORSED CONTINUITY OF CARE TO ASSEMBLER LATCHES AND SPRINGS RN AT BEDSIDE. PATIENT PRESENTS NO SIGNS OF DISTRESS AT THIS TIME.
--- NOTE | 2018-03-31 19:15 | NUR ---
RECEIVED BEDSIDE REPORT FROM MORNING SHIFT NURSE, PATIENT OPENS HIS EYES SPONTANEOUSLY, RESPONSIVE TO LIGHT PAIN. NO ACUTE DISTRESS NOTED BUT TACHYPNEA. ETT TO VENT WITH SETTING A/C MODE, FIO2 40%, VT 300, RATE 14, PEEP 5. BILATERAL LUNG SOUND DIMINISHED. SALINE LOCK TO LEFT HAND 24G, INTACT AND PATENT NOTED AND PICC LINE TO LEFT UPPER ARM DOUBLE LUMENS, DRESSING INTACT AND LINES ARE PATENT, GOOD BLOOD RETURN NOTED. SR ON THE MONITOR. G TUBE IN PLACE, HOLDING TUBE FEEDING AT THIS TIME. PLACEMENT CHECK, NO RESIDUAL NOTED. ACTIVE BOWEL SOUND HEARD FROM ALL 4 QUADS. DELGADO CATH IN PLACE DRAINING CLEAR YELLOW URINE. SKIN IS INTACT. HOB ELEVATED 30 DEGREE, BED IN LOW POSITION. CALL LIGHT WITHIN REACHED. CONTINUE TO MONITOR.
[2018-03-31] MEDS: PANTOPRAZOLE 40 MG INJ VIAL IVP SCH (20:17)
[2018-03-31] MEDS: TAMSULOSIN 0.4 MG CAP PO SCH (20:18)
--- NOTE | 2018-03-31 20:50 | NUR ---
ADMINISTERED SCHEDULED MEDICATIONS ORDERED, PATIENT TOLERATED WELL. BS CHECKED 137 NOTED. NO ACUTE DISTRESS NOTED BUT TACHYPNEA. ST ON THE MONITOR. FLACC 0. WILL CONTINUE TO MONITOR.
--- NOTE | 2018-03-31 23:30 | NUR ---
ADMINISTERED SCHEDULED CARDIZEM AND PRN NORCO 7.5MG DUE TO PATIENT'S HR 120, RR 36, FLACC 3 NOTED. WILL CONTINUE TO MONITOR.
[2018-04-01] VITALS (29 sets, daily range): BP systolic 85–153; BP diastolic 38–76
[2018-04-01] MEDS ORDERED: SODIUM PHOSPHATE 118 ML ENEM RC PRN (00:05)
[2018-04-01] MEDS: ALBUTEROL SULFATE/IPRATROPIU 3 ML SOL IH SCH ×4 (01:02→18:37)
--- NOTE | 2018-04-01 01:10 | NUR ---
REPORTED PATIENT'S HR 125 WITH A-FIB TO DR. GIFFORD, WILL FOLLOW THE ORDERS
--- NOTE | 2018-04-01 01:20 | NUR ---
RECEIVED PHONE CALL FROM AND RECEIVED CARDIZEM 10MG IVP ONCE NOW, FLEET ENEMA AND HOLD METOPROLOL PO MEDICATION AT THIS TIME.
[2018-04-01] MEDS ORDERED: DILTIAZEM 25 MG/5 ML VIAL IVP ONE (01:24)
[2018-04-01] MEDS ORDERED: METOPROLOL 25 MG TAB PO SCH ×2 (01:30→09:00)
[2018-04-01] MEDS ORDERED: DILTIAZEM 25 MG/5 ML VIAL IVP SCH (01:30)
[2018-04-01] MEDS: MORPHINE SULFATE 2 MG/ML SYR IVP PRN ×3 (01:51→21:58)
--- NOTE | 2018-04-01 01:55 | NUR ---
AFTER FLEET ENEMA, OBSERVED PATIENT'S FACIAL GRIMACE AND HR ABOVE 150, ADMINISTERED PRN MORPHINE AT THIS TIME. WILL CONTINUE TO MONITOR.
--- NOTE | 2018-04-01 02:10 | NUR ---
REPORTED PATIENT'S HR ABOVE 150 AFTER GIVEN FLEET ENEMA TO , DR WILL COME TO CHECK THE PATIENT.
[2018-04-01] MEDS: LINEZOLID 600MG PREMIX 300 ML IV SCH ×2 (02:24→13:38)
--- NOTE | 2018-04-01 02:25 | NUR ---
DR. GIFFORD AT BEDSIDE TO CHECK THE PATIENT, WILL FOLLOW THE ORDER.
[2018-04-01] MEDS: NACL 0.9% 1,000 ML IV SCH ×4 (02:30→16:25)
[2018-04-01] MEDS ORDERED: AMIODARONE 200 MG TAB GT SCH ×2 (02:45→09:00)
--- NOTE | 2018-04-01 03:10 | NUR ---
ADMINISTERED CORDARONE 100MG VIA GT ONCE ORDERED BY DR. GIFFORD. REMOVED LARGE AMOUNT OF FECES BY MANUALLY, PATIENT TOLERATED WELL. WILL CONTINUE TO MONITOR.
--- NOTE | 2018-04-01 05:20 | NUR ---
PATIENT'S HR 114, RR 24, O2SAT 99%, BP 129/59, FLACC 0 NOTED AT THIS TIME. PATIENT OPENS EYES BUT NOT TRACKING, UNABLE TO FOLLOW COMMANDS. TOLERATED WELL WITH VENT. WILL CONTINUE TO MONITOR.
[2018-04-01 05:23] LABS: HEMATOCRIT 29.1 % (36-52); HEMOGLOBIN 9.1 g/dL (12.0-18.0); MEAN CORPUSCULAR HEMOGLOBIN 27 pg (27-31); MEAN CORPUSCULAR HGB CONC 31 g/dL (33-37); MEAN CORPUSCULAR VOLUME 86.3 fL (80-94); PLATELET COUNT (AUTO) 270 K/uL (140-450); RED BLOOD CELL COUNT(AUTO) 3.37 MIL/uL (4.20-6.10); RED CELL DISTRIBUTION WIDTH 16.8 % (11.6-13.7)
[2018-04-01 05:28] LABS: ANION GAP 14.4 (8-16); CARBON DIOXIDE 19.9 mmol/L (21-32); CHLORIDE 101 mmol/L (98-107); CREATININE 1.2 mg/dL (0.7-1.3); GLUCOSE 154 mg/dL (74-106); POTASSIUM 4.3 mmol/L (3.5-5.1); SODIUM SERUM 131 mmol/L (136-145); UREA NITROGEN, BLOOD 26 mg/dL (7-18)
[2018-04-01 05:29] LABS: WHITE BLOOD COUNT (AUTO) 32.5 K/uL (4.8-10.8)
[2018-04-01 05:31] LABS: MAGNESIUM 1.9 mg/dL (1.8-2.4); PHOSPHORUS 3.3 mg/dL (2.5-4.9)
[2018-04-01 05:34] LABS: LYMPHOCYTES % (MANUAL) 3 % (20-46); MONOCYTES % (MANUAL) 2 % (5-12)
[2018-04-01] MEDS: LORazepam 2 MG/ML VIAL IVP PRN (06:27)
[2018-04-01] MEDS: DILTIAZEM 60 MG TAB PO SCH ×3 (06:27→17:27)
--- NOTE | 2018-04-01 06:27 | NUR ---
REC'D PT ON CARESCAPE VENT SETTINGS AC 14 VT 300 PEEP 5 FIO2 40% ALARMS ON AND AUDIBLE AND FUNCTIONING PROPERLY, AMBU BAG AT SIDE OF VENT AND VENT IS PLUGGED INTO RED OUTLET, NO BREATHING TX GIVEN DUE TO HIGH HEART RATE OF [address] CAMARGO AT BEDSIDE AND INFORMED OF HEART RATE, SXN PT SMALL AMT OF CREAM COLOR SECRETIONS, B\S ARE CLEAR BILATERALLY, PT IS ORALLY INTUBATED WITH 7.5 ET TUBE SECURED WITH ANCHOR FAST AT MIDLINE AND SKIN INTEGRITY IS INTACT
--- NOTE | 2018-04-01 06:30 | NUR ---
DR. CAMARGO AT BEDSIDE TO CHECK THE PATIENT, WILL FOLLOW ORDERS.
--- NOTE | 2018-04-01 07:06 | NUR ---
RECEIVED REPORT FOR CONTINUITY OF CARE AT BEDSIDE FROM BANKING REPRESENTATIVE RN. PATIENT IS AAOX1, OPENS EYES SPONTANEOUSLY, NONVERBAL. SKIN IS WARM AND DRY, INTACT. PATIENT HAS PICC LINE TO BEAR, ASYMPTOMATIC, PATENT, INTACT. PATIENT IS TACHYCARDIC, AFIB ON MONITOR. PATIENT HAS ETT TO VENT, SETTINGS ARE AT A/C VC 14, FIO2 40, TV 300, PEEP 5. RESPIRATIONS ARE EVEN AND UNLABORED. HE HAS A GTUBE TO LUQ, NO RESIDUAL NOTED, HE IS CURRENTLY NPO EXCEPT MEDS. PATIENT HAS DELGADO CATHETER IN PLACE TO CLEAR YELLOW URINE. HOB IS ELEVATED TO 30 DEGREES IN LOW POSITION. CALL LIGHT IS WITHIN REACH, NO SIGNS OF DISTRESS NOTED AT THIS TIME, WILL CONTINUE TO MONITOR.
[2018-04-01] MEDS: BLOOD GLUCOSE MONITORING 1 DEV DEV FS SCH ×4 (07:27→20:39)
--- NOTE | 2018-04-01 07:47 | NUR ---
TURNED AND REPOSITIONED PATIENT, PATIENT TOLERATED WELL. CALL LIGHT WITHIN REACH, WILL CONTINUE TO MONITOR.
[2018-04-01] MEDS: MEROPENEM 500 MG in NACL 0.9% 50 ML IV SCH ×2 (08:25→20:40)
[2018-04-01] MEDS: ATORVASTATIN 20 MG TAB PO SCH (08:26)
[2018-04-01] MEDS: BROMOCRIPTINE 2.5 MG TAB PO SCH ×2 (08:26→20:43)
[2018-04-01] MEDS: DOCUSATE 100 MG/10 ML UDC PO SCH ×2 (08:26→20:41)
[2018-04-01] MEDS: CALCIUM CARB/VIT-D 500 MG/200 IU 1 TAB PO SCH (08:26)
[2018-04-01] MEDS: LACTOBACILLUS RHAMNOSUS GG 1 EACH CAP PO SCH (08:27)
[2018-04-01] MEDS: PANTOPRAZOLE 40 MG INJ VIAL IVP SCH ×2 (08:27→20:41)
--- NOTE | 2018-04-01 08:28 | NUR ---
ADMINISTERED SCHEDULED MEDS ORDERED, PATIENT TOLERATED WELL. NO SIGNS OF DISTRESS NOTED. WILL CONTINUE TO MONITOR
--- NOTE | 2018-04-01 08:41 | NUR ---
RT AT BEDSIDE, NO SIGNS OF DISTRESS NOTED.
--- NOTE | 2018-04-01 08:42 | NUR ---
VENT CHECK, NO SXN NEEDED AIRWAY IS PATENT AND PT IS RESTING WITH NO SIGNS OF DISTRESS NOTED AT THIS TIME
--- NOTE | 2018-04-01 08:44 | NUR ---
CALLED DR. CAMARGO, HE STATES TO INCLUDE BOLUS FOR AMNIODARONE DRIP, PHARMACY IS AWARE.
[2018-04-01] MEDS: FINASTERIDE 5 MG TAB PO SCH (09:00)
[2018-04-01] MEDS ORDERED: AMIODARONE 450 MG in DEXTROSE 5% 250 ML IV SCH (09:00)
[2018-04-01] MEDS ORDERED: AMIODARONE 150 MG in DEXTROSE 5% 100 ML IV SCH (09:00)
--- NOTE | 2018-04-01 09:17 | NUR ---
PATIENT FAMILY AT BEDSIDE, UPDATED ON PATIENT'S CONDITION. NO SIGNS OF DISTRESS NOTED AT THIS TIME
--- NOTE | 2018-04-01 09:21 | NUR ---
DR. CAMARGO IN TO SEE PATIENT AND SPEAK WITH FAMILY REGARDING PLAN FOR PATIENT. FAMILY STATES THAT THEY DO NOT WANT SURGERY DONE BUT WANT EVERYTHING ELSE TO BE TREATED. DR. CAMARGO ALSO DISCUSSED HOSPICE WITH THE FAMILY.
--- NOTE | 2018-04-01 09:35 | NUR ---
STARTED PATIENT ON AMNIODARONE IV BOLUS ORDERED. NO SIGNS OF DISTRESS NOTED AT THIS TIME, WILL CONTINUE TO MONITOR
--- NOTE | 2018-04-01 09:58 | NUR ---
STARTED PATIENT ON AMNIODARONE DRIP AT 33ML/HR, NO SIGNS OF DISTRESS NOTED AT THIS TIME, WILL CONTINUE TO MONITOR PATIENT.
--- NOTE | 2018-04-01 10:30 | NUR ---
DR. CADENA AND RESIDENT PHYSICIANS IN TO SEE AND ROUND ON PATIENT, UPDATED ON PATIENT'S CONDITION. WILL FOLLOW UP ON ANY ORDERS
--- NOTE | 2018-04-01 10:56 | NUR ---
VENT CHECK, SXN PT SMALL AMT OF CREAM COLOR SECRETIONS, FAMILY IS AT BEDSIDE PT IS RESTING WITH NO SIGNS OF DISTRESS NOTED
--- NOTE | 2018-04-01 11:13 | NUR ---
CALLED PATIENT'S SON REGARDING THE DRAINAGE OF THE ABSCESS, SON STATES THAT HE SPOKE WITH DR. CAMARGO ABOUT THE PROCEDURE AND GIVES CONSENT FOR THE PROCEDURE TO BE DONE.
--- NOTE | 2018-04-01 11:29 | NUR ---
US TECH AT BEDSIDE FOR US OF PATIENT'S ABDOMEN. NO SIGNS OF DISTRESS NOTED AT THIS TIME, WILL CONTINUE TO MONITOR.
--- NOTE | 2018-04-01 11:41 | NUR ---
PATIENT IS TACHYPNEIC AND TACHYCARDIC, ADMINISTERED MORPHINE PRN PER ORDER, PATIENT TOLERATES WELL. WILL CONTINUE TO MONITOR.
[2018-04-01 11:43] LABS: PROTHROMBIN TIME 11.8 secs (10.8-13.4)
--- NOTE | 2018-04-01 12:16 | NUR ---
PATIENT IS OBSERVED RESTING, HR IS 100, RESPIRATIONS 20, SPO2 99, AND BP IS 108/52. NO SIGNS OF ACUTE DISTRESS NOTED, FAMILY AT BEDSIDE, CALL LIGHT WITHIN REACH, HOB 30 DEGREES IN LOW POSITION. WILL CONTINUE TO MONITOR
--- NOTE | 2018-04-01 12:52 | NUR ---
VENT CHECK, I\L TX GIVEN WITH DUONEB 3ML WITH NO ADVERSE REACTION POST TX B\S ARE CLEAR AND IS AT BEDSIDE, PT IS RESTING NO SXN NEEDED AT THIS TIME
--- NOTE | 2018-04-01 13:33 | NUR ---
RECEIVED SPUTUM CULTURE RESULTS, DR. CAMARGO IS AWARE. WILL FOLLOW UP ON ANY ORDERS.
--- NOTE | 2018-04-01 14:01 | NUR ---
PATIENT TURNED AND REPOSITIONED, CHANGED GOWN. NO SIGNS OF DISTRESS NOTED, CALL LIGHT WITHIN REACH, HOB IS 30 DEGREES. FAMILY AT BEDSIDE, WILL CONTINUE TO MONITOR
[2018-04-01] MEDS ORDERED: LIDOCAINE MPF 2% 100 MG/5 ML VIAL INJ SCH (15:00)
--- NOTE | 2018-04-01 15:02 | NUR ---
vent check, no sxn required at this time, pt is resting and increased fio2 to 100% for procedure of draining abscess of isabella vargas at bedside
--- NOTE | 2018-04-01 15:05 | NUR ---
DR. MCCALL, DR. CAMARGO, [facility] AT BEDSIDE FOR DRAINAGE OF ABSCESS IN RIGHT UPPER ABDOMEN. NO SIGNS OF DISTRESS NOTED AT THIS TIME. WILL CONTINUE TO MONITOR PATIENT.
--- NOTE | 2018-04-01 15:35 | NUR ---
PATIENT TOLERATED PROCEDURE WELL, NO SIGNS OF DISTRESS NOTED, PATIENT HAS 8 TURKISH CATHETER TO DRAINAGE BAG IN THE RIGHT UPPER QUADRANT.
--- NOTE | 2018-04-01 16:27 | NUR ---
PATIENT FAMILY AT BEDSIDE, NO SIGNS OF DISTRESS NOTED AT THIS TIME. WILL CONTINUE TO MONITOR
--- NOTE | 2018-04-01 16:58 | NUR ---
IN TO SEE AND EXAMINE PATIENT, UPDATED ON PATIENT'S CONDITION. WILL FOLLOW UP ON ANY ORDERS.
--- NOTE | 2018-04-01 16:59 | NUR ---
VENT CHECK, NO SXN NEEDED PT IS RESTING AND DECREASED FIO2 TO 40%
[2018-04-01] MEDS ORDERED: AMIODARONE 450 MG/9 ML VIAL IV ONE (17:01)
--- NOTE | 2018-04-01 17:49 | NUR ---
TURNED AND REPOSITIONED AND CHANGED PATIENT, TOLERATED WELL, NO SIGNS OF ACUTE DISTRESS NOTED. PROVIDED ORAL CARE, PATIENT TOLERATES WELL. CALL LIGHT WITHIN REACH. HOB 45 DEGREES, WILL CONTINUE TO MONITOR
--- NOTE | 2018-04-01 18:36 | NUR ---
DECREASED FIO2 TO 35%, SAO2-98% BS-CLEAR, RR-19BPM, HR-92BPM
--- NOTE | 2018-04-01 18:38 | NUR ---
RT AT BEDSIDE, CHANGED FIO2 TO 35 %, NO SIGNS OF DISTRESS NOTED AT THIS TIME. WILL CONTINUE TO MONITOR
--- NOTE | 2018-04-01 19:07 | NUR ---
ENDORSED REPORT AT BEDSIDE FOR CONTINUITY OF CARE, NO SIGNS OF DISTRESS NOTED AT THIS TIME.
--- NOTE | 2018-04-01 19:30 | NUR ---
REPORT RECEIVED FROM MORNING NURSE. PT IS AWAKE, NONVERBAL, UNABLE TO FOLLOW COMMANDS. PERRL. ETT SIZE 7.5 TAPED AT 24CM FROM THE LIP LINE TO VENT AC 14, TV 300, 35% FIO2, PEEP 5. BILATERAL LUNGS SOUND CLEAR IN THE UPPER LOBES AND DIMINISHED IN THE LOWER LOBES. BOWEL SOUNDS HYPOACTIVE ALL [address] AND RESIDUAL NOTED WITH 80ML W/ YELLOWISH CLEAR CONTENT. NPO EXCEPT MEDS NOTED AT THIS TIME. DRAINAGE BAG NOTED ON THE RUQ WITH SANGUINOUS DRAINAGE. PICC LINE WITH DL TO BEAR. ALL PATENT AND ASYMPTOMATIC. GENERALIZED WEAKENS NOTED AND CONTRACTURE TO UPPER RIGHT EXTREMITY. CAP REFILLS WITHIN [address] DRAINING LIGHT CELINA URINE. FLACC 0. AFEBRILE. VSS. AFIB ON CONTINUOUS [employer]ER[employer] GRE[employer]ROFIT ARCHITECT. AMIODARONE DRIP RUNNING AT MAINTENANCE DOSE AT THIS TIME. CALL LIGHT WITHIN REACH. HOB ELEVATED 30 DEGREES. BED KEPT TO THE LOWEST AND LOCKED. WILL CONTINUE TO MONITOR.
[2018-04-01] MEDS: SODIUM CHLORIDE FLUSH 10 ML SYR IVF SCH (20:40)
[2018-04-01] MEDS: TAMSULOSIN 0.4 MG CAP PO SCH (20:43)
[2018-04-01] MEDS: AMIODARONE 200 MG TAB PO SCH (20:43)
[2018-04-01] MEDS: INSULIN LISPRO SLIDING SCALE 100 UNITS/ML VIAL SUBQ PRN (21:12)
--- NOTE | 2018-04-01 21:30 | NUR ---
SCHEDULED MEDS ADMINISTERED. ORAL VAP CARE PROVIDED. REPOSITIONED FOR COMFORT.
--- NOTE | 2018-04-01 22:00 | NUR ---
PT NOTED WITH FLACC 7 AND INCREASED HR AND BP. AFEBRILE. REPOSITIONED FOR COMFORT. MORPHINE ADMINISTERED ORDERED. WILL CONTINUE TO MONITOR.
--- NOTE | 2018-04-01 23:25 | NUR ---
DR. LAZO IN TO SEE PT. WILL FOLLOW UP WITH ANY ORDERS.
[2018-04-02] VITALS (23 sets, daily range): BP systolic 102–167; BP diastolic 43–84
--- NOTE | 2018-04-02 | NUR ---
ORAL VAP CARE PROVIDED. AFEBRILE. FLACC 0. VSS STABLE. REPOSITION FOR COMFORT. WILL CONTINUE TO MONITOR.
[2018-04-02] MEDS: DILTIAZEM 60 MG TAB PO SCH ×4 (00:14→17:29)
[2018-04-02] MEDS: NACL 0.9% 1,000 ML IV SCH ×4 (01:02→19:31)
[2018-04-02] MEDS: ALBUTEROL SULFATE/IPRATROPIU 3 ML SOL IH SCH ×4 (01:07→19:21)
--- NOTE | 2018-04-02 01:08 | NUR ---
DECREASED FIO2 TO 30%, SAO2-100%
[2018-04-02] MEDS: LINEZOLID 600MG PREMIX 300 ML IV SCH ×2 (02:00→13:49)
--- NOTE | 2018-04-02 04:05 | NUR ---
ORAL VAP CARE PROVIDED. VSS AND AFEBRILE. ASSISTED WITH REPOSITION FOR COMFORT. FLACC 0. WILL CONTINUE TO MONITOR.
[2018-04-02] MEDS: SODIUM CHLORIDE FLUSH 10 ML SYR IVF SCH ×3 (05:22→21:11)
[2018-04-02 05:26] LABS: HEMATOCRIT 27.5 % (36-52); HEMOGLOBIN 8.8 g/dL (12.0-18.0); MEAN CORPUSCULAR HEMOGLOBIN 27 pg (27-31); MEAN CORPUSCULAR HGB CONC 32 g/dL (33-37); MEAN CORPUSCULAR VOLUME 85.3 fL (80-94); PLATELET COUNT (AUTO) 208 K/uL (140-450); RED BLOOD CELL COUNT(AUTO) 3.22 MIL/uL (4.20-6.10); RED CELL DISTRIBUTION WIDTH 16.8 % (11.6-13.7)
--- NOTE | 2018-04-02 05:30 | NUR ---
MORNING CARE, BED BATH, DELGADO CATHETER CARE, LINEN CHANGED. PT TOLERATED WELL.
[2018-04-02] MEDS: ALENDRONATE SODIUM 70 MG TAB PO SCH (05:43)
--- NOTE | 2018-04-02 05:43 | NUR ---
FOSAMAX NOTED NOT TO BE CRUSHED. CALLED PHARMACY AND VERIFIED THAT WE CAN'T CRUSH IT AND PT IS GT ONLY AND UNABLE TO SWALLOW. DR. GIFFORD MADE AWARE AND SAID OK NOT TO GIVE IT.
[2018-04-02 06:01] LABS: ANION GAP 15.1 (8-16); CARBON DIOXIDE 18.8 mmol/L (21-32); CHLORIDE 99 mmol/L (98-107); GLUCOSE 200 mg/dL (74-106); POTASSIUM 3.9 mmol/L (3.5-5.1); SODIUM SERUM 129 mmol/L (136-145); UREA NITROGEN, BLOOD 30 mg/dL (7-18)
[2018-04-02 06:05] LABS: PHOSPHORUS 2.7 mg/dL (2.5-4.9)
--- NOTE | 2018-04-02 06:25 | NUR ---
RECEIVED PT ON CARESCAPE ON A/C 14 VT 300 PEEP 5 FIO2 30 ALARMS ARE ON AND AUDIBLE BMV HOB PTS ET TUBE SZIE 7.5 IS SECURE 24 CM ANCHOR FAST IN PL[address] BS CLEAR PT IN HF QUIET HHN GIVEN I\L WITH 3 MG DUONEB VENT PLUGGED INTO RED OUTLET NO DISTRESS NOTED
[2018-04-02 06:34] LABS: WHITE BLOOD COUNT (AUTO) 32.7 K/uL (4.8-10.8)
[2018-04-02 06:36] LABS: LYMPHOCYTES % (MANUAL) 2 % (20-46); MONOCYTES % (MANUAL) 2 % (5-12)
--- NOTE | 2018-04-02 07:30 | NUR ---
REPORT GIVEN TO MORNING NURSE FOR CONTINUITY OF CARE. VSS. ALL SAFETY PRECAUTIONS ARE IN PLACE.
--- NOTE | 2018-04-02 07:30 | NUR ---
REPORT RECEIVED FROM PM NURSE. PT AWAKE, NONVERBAL, ABLE TO FOLLOW SIMPLE COMMANDS. PERRL. ETT SIZE 7.5 TAPED AT 24CM FROM THE LIP LINE TO VENT AC 14, TV 300, 30% FIO2, PEEP 5. GT IN PLACE NPO EXCEPT MEDS NOTED AT THIS TIME. DRAINAGE BAG NOTED ON THE RUQ WITH SMALL AMOUNT OF SANGUINOUS DRAINAGE. PICC LINE TO BEAR RUNNING AMIODARONE AT 0.5 MG/HR. ALL PATENT AND ASYMPTOMATIC. GENERALIZED WEAKENS NOTED AND CONTRACTURE TO RIGHT UPPER RIGHT EXTREMITY. DELGADO CATHETER IN PLACE DRAINING LIGHT CELINA URINE. FLACC 0. HOB ELEVATED 30 DEGREES WITH LOW BED POSITION, WILL CONTINUE TO MONITOR.
[2018-04-02] MEDS: BLOOD GLUCOSE MONITORING 1 DEV DEV FS SCH ×4 (07:40→21:00)
--- NOTE | 2018-04-02 07:40 | NUR ---
PT FINGER BLOOD SUGAR 151, PER DR. DESOUZA DO NOT GIVE INSULIN COVERAGE DUE TO PT NPO.
[2018-04-02] MEDS: CALCIUM CARB/VIT-D 500 MG/200 IU 1 TAB PO SCH (08:40)
[2018-04-02] MEDS: BROMOCRIPTINE 2.5 MG TAB PO SCH ×2 (08:41→21:10)
[2018-04-02] MEDS: AMIODARONE 200 MG TAB PO SCH ×2 (08:41→21:10)
[2018-04-02] MEDS: PANTOPRAZOLE 40 MG INJ VIAL IVP SCH ×2 (08:41→21:10)
[2018-04-02] MEDS: LACTOBACILLUS RHAMNOSUS GG 1 EACH CAP PO SCH (08:41)
[2018-04-02] MEDS: ATORVASTATIN 20 MG TAB PO SCH (08:42)
[2018-04-02] MEDS: MEROPENEM 500 MG in NACL 0.9% 50 ML IV SCH ×2 (08:42→21:09)
[2018-04-02] MEDS: DOCUSATE 100 MG/10 ML UDC PO SCH ×2 (08:43→21:09)
[2018-04-02] MEDS: FINASTERIDE 5 MG TAB PO SCH (08:43)
--- NOTE | 2018-04-02 09:00 | NUR ---
DUE MEDS GIVEN, PT TOLERATED WELL
--- NOTE | 2018-04-02 12:00 | NUR ---
TURNED AND REPOSITIONED PT. ORAL CARE GIVEN. PT'S AT BEDSIDE.
[2018-04-02] MEDS ORDERED: FUROSEMIDE 100 MG/10 ML VIAL IV SCH (14:41)
--- NOTE | 2018-04-02 15:04 | NUR ---
04/02/18 RD FOLLOW UP COMPLETED PLEASE REFER TO NUTRITION PROGRESS NOTE UNDER CARE ACTIVITY FOR ESTIMATED NUTRITION NEEDS. RD RECOMMENDATIONS: 1. CONTINUE CURRENT ORDER NPO EXCEPT MEDS. 2. WHEN MEDICALLY CLEARED, RECOMMEND TUBE FEEDING OF DIABETISOURCE AC AT 55 ML/HR WITH 35ML Q4H WATER FLUSHES TOLERATED (SUFFICIENT TO MEET 100% ESTIMATED NEEDS) 3. RD TO FOLLOW-UP 2-3 DAYS, HIGH RISK YARI TERRELL MBA, RD
--- NOTE | 2018-04-02 16:38 | NUR ---
US TECH AT BEDSIDE.
--- NOTE | 2018-04-02 17:45 | NUR ---
STARTED PT ON TUBE FEEDING, PLACEMENT CHECKED.
--- NOTE | 2018-04-02 19:25 | NUR ---
REPORT RECEIVED FROM MORNING NURSE JAMMIE.RN. PATIENT AWAKE AND ALERT, NONVERBAL, ABLE TO FOLLOW SIMPLE COMMANDS. ETT TO VENT SIZE 7.5 TAPED AT 24CM FROM THE LIP LINE TO VENT SETTING WITH AC 14, TV 300, FIO2 30%, PEEP 5. BILATERAL LUNG SOUND DIMINISHED AND TACHYPNEA NOTED. G TUBE TO FEEDING DIABETICSOURSE 10ML/HR WITH H2O FLUSH 35ML Q4 NOTED, PLACEMENT CHECKED, RESIDUAL LESS THAN 5CC NOTED. DRAINAGE BAG NOTED ON THE RIGHT CHEST WITH SMALL AMOUNT OF SANGUINOUS DRAINAGE. PICC LINE TO BEAR RUNNING NS 125ML/HR AND PATENT AND ASYMPTOMATIC. GENERALIZED WEAKENS NOTED AND CONTRACTURE TO RIGHT UPPER RIGHT EXTREMITY. DELGADO CATHETER IN PLACE DRAINING LIGHT CELINA URINE. SCROTUM AND LEFT ARM SWELLING NOTED. FLACC 0. HOB ELEVATED 30 DEGREES, BED IN LOW POSITION, WILL CONTINUE TO MONITOR.
[2018-04-02] MEDS: TAMSULOSIN 0.4 MG CAP PO SCH (21:10)
--- NOTE | 2018-04-02 21:20 | NUR ---
ADMINISTERED SCHEDULED MEDICATION, TOLERATED WELL. FEEDING RESIDUAL CHECKED 5CC NOTED. TOLERATED WELL WITH DIABETICSOURSE 10ML/HR. NO ACUTE DISTRESS NOTED. FLACC 0. WILL CONTINUE TO MONITOR. Addendum: 04/03/18 at 0254 by Austin Negro RN 10ML SALINE FLUSH DONE TO RUQ ABDOMEN CATHETER, SANGUINEOUS DRAINAGE NOTED.
--- NOTE | 2018-04-02 22:10 | NUR ---
G TUB FEEDING RESIDUAL CHECKED LESS THAN 10CC NOTED, INCREASED TUBE FEEDING TO 20ML/HR. WILL CONTINUE TO MONITOR.
[2018-04-03] VITALS (82 sets, daily range): BP systolic 84–116; BP diastolic 3–83
--- NOTE | 2018-04-03 00:30 | NUR ---
ADMINISTERED SCHEDULED MEDICATION ORDERED. PATIENT CLOSED HIS EYES, RESPONSIVE TO LIGHT PAIN, UNABLE TO FOLLOW SIMPLE COMMANDS. RESIDUAL CHECKED 40 CC NOTED.NO ACUTE DISTRESS NOTED. FLACC 0. WILL CONTINUE TO MONITOR.
[2018-04-03] MEDS: DILTIAZEM 60 MG TAB PO SCH ×4 (00:33→18:00)
[2018-04-03] MEDS: ALBUTEROL SULFATE/IPRATROPIU 3 ML SOL IH SCH ×4 (01:16→19:12)
[2018-04-03] MEDS: LINEZOLID 600MG PREMIX 300 ML IV SCH ×2 (01:38→13:48)
--- NOTE | 2018-04-03 01:45 | NUR ---
INCREASED FIO2 TO 45%
--- NOTE | 2018-04-03 02:00 | NUR ---
CHECKED G TUBE FEEDING RESIDUAL LESS THAN 10CC NOTED. INCREASED FEEDING TO 30ML/HR. WILL CONTINUE TO MONITOR.
--- NOTE | 2018-04-03 02:30 | NUR ---
REPORTED PATIENT'S O2 SAT BELOW 88% TO DR. PYLE. RECEIVED ABG ORDER. RT AWARE. ADMINISTERED IV ABX ORDERED, TOLERATE WELL. WILL CONTINUE TO MONITOR.
--- NOTE | 2018-04-03 03:10 | NUR ---
ABG RESULT RECEIVED, PH 6.982, PCO2 41.9, PO2 71.2, HCO3 9.[address] PYLE BY CASEY SUAREZ. WILL FOLLOW THE ORDER.
--- NOTE | 2018-04-03 03:25 | NUR ---
PT DESAT. TO 65%, NO PERFUSION, LOW BLOOD PRESSURE, PT UNSTABLE. CALL DR KUMARI FOR ABG ORDER. RESULTS 6.982., 41.9, 71,2 PO2, HCO3 9.7, BE -20.8, CALED BACK DR , AND NO CHANGES IN VENT ORDER.
[2018-04-03] MEDS: NACL 0.9% 1,000 ML IV SCH ×2 (03:26→11:31)
[2018-04-03] MEDS: SODIUM CHLORIDE FLUSH 10 ML SYR IVF SCH ×3 (04:38→20:33)
[2018-04-03 04:58] LABS: HEMATOCRIT 27.6 % (36-52); HEMOGLOBIN 8.3 g/dL (12.0-18.0); MEAN CORPUSCULAR HEMOGLOBIN 27 pg (27-31); MEAN CORPUSCULAR HGB CONC 30 g/dL (33-37); MEAN CORPUSCULAR VOLUME 90.7 fL (80-94); PLATELET COUNT (AUTO) 166 K/uL (140-450); RED BLOOD CELL COUNT(AUTO) 3.05 MIL/uL (4.20-6.10)
--- NOTE | 2018-04-03 05:20 | NUR ---
FOLLOW UP WITH DR. PYLE (RESIDENT) ABOUT PATIENT'S ABG RESULTS THAT WAS REPORTED TO HIM BY JOSÉ ANTONIO/ RESPIRATORY THERAPIST AT 0325.: ph 6.982, pHCO3 IS 9.7, PCO2 IS 41.9. DR. PYLE STATED " YEAH I'M AWARE, I ALREADY TOLD DR. 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 CONTE SAID THAT WE'RE NOT GOING TO DO ANYTHING AT THE MOMENT".
[2018-04-03] MEDS ORDERED: NACL 0.9% 500 ML IV ONE (05:40)
[2018-04-03] MEDS ORDERED: NOREPINEPHRINE 4 MG in DEXTROSE 5% 250 ML IV PRN (05:40)
[2018-04-03] MEDS ORDERED: SODIUM BICARBONATE 8.4% PFS 50 MEQ/50 ML SYR IVP ONE (05:45)
[2018-04-03] MEDS ORDERED: NOREPINEPHRINE 4 MG/4 ML VIAL IV ONE (05:49)
[2018-04-03] MEDS: LORazepam 2 MG/ML VIAL IVP PRN (05:50)
--- NOTE | 2018-04-03 05:50 | NUR ---
ADMINISTERED SCHEDULED MEDICATION AND PRN ATIVAN. WILL CONTINUE TO MONITOR.
[2018-04-03 06:00] LABS: MAGNESIUM 2.3 mg/dL (1.8-2.4); PHOSPHORUS 6.4 mg/dL (2.5-4.9)
[2018-04-03] MEDS ORDERED: SODIUM BICARBONATE 8.4% PFS 50 MEQ/50 ML SYR IVP SCH (06:00)
--- NOTE | 2018-04-03 06:03 | NUR ---
DR. CRAFT CAME IN TO SEE THE PATIENT AROUND 0525, INFORMED ABOUT THE RECENT ABG RESULTS, MD WENT TO CHECKED THE PATIENT, URINE OUTPUT 200 CC FOR THE LAST 12 HRS, BP 101/[address] CRAFT GAVE NEW ORDERS: NS 500 ML ONCE BOLUS, 2 AMPS OF NAHCO3 IV PUSH, CXR STAT, LEVOPHED DRIP 8 MG TO KEEP MAP ABOVE 65, ALL ORDERS CARRIED OUT.
[2018-04-03 06:16] LABS: CHLORIDE 101 mmol/L (98-107); POTASSIUM 5.2 mmol/L (3.5-5.1); SODIUM SERUM 131 mmol/L (136-145)
[2018-04-03 06:17] LABS: ANION GAP 22.4 (8-16); CARBON DIOXIDE 12.8 mmol/L (21-32); CREATININE 1.4 mg/dL (0.7-1.3); GLUCOSE 117 mg/dL (74-106); UREA NITROGEN, BLOOD 33 mg/dL (7-18)
[2018-04-03 06:26] LABS: LYMPHOCYTES % (MANUAL) 3 % (20-46); MONOCYTES % (MANUAL) 4 % (5-12)
--- NOTE | 2018-04-03 06:34 | NUR ---
REC'D PT ON CARESCAPE VENT SETTINGS AV14 VT 300 PEEP 5 FIO2 100% ALARMS ON AND AUDIBLE AND FUNCTIONING PROPERLY, AMBU BAG AT SIDE OF VENT AND VENT IS PLUGGED INTO RED OUTLET, I\L TX GIVEN WITH DUONEB 3ML WITH NO ADVERSE REACTION POST TX, B\S ARE CLEAR BILATERALLY, PT IS ORALLY INTUBATED WITH 7.5 ET TUBE AT 24 CM AT MIDLINE AND SKIN INTEGRITY IS INTACT, SXN PT NO RETURN OF SECRETIONS. PT IS RESTING
--- NOTE | 2018-04-03 07:30 | NUR ---
RECEIVED PT FROM PM NURSE, PT SLEEPING, UNABLE TO FOLLOW COMMANDS. BEDSIDE MONITOR SHOWS A-FIB, ETT TO VENT WITH SETTING FIO2 100%, VT 300, AC 14, PEEP. NO S/S OF RESPIRATORY DISTRESS NOTED. PT HAS DRAINAGE BAG TO RUQ WITH SMALL AMOUNT OF SANGUINOUS DRAINAGE NOTED, PT HAS PICC LINE TO LEFT UPPER ARM RUNNING LEVOPHED AT 7 MCG/MIN AND NS AT 125 MLS/HR. DELGADO CATH IN PLACE, WITH SMALL AMOUNT OF URINE NOTED. HOB ELEVATED 30 DEGREES WITH LOW BED POSITION, WILL CONTINUE TO MONITOR. Addendum: 04/03/18 at 0815 by Derian Barnes RN PT ALSO HAS G-TUBE ON DIABETI SOURCE AT 40 MLS/HR
--- NOTE | 2018-04-03 07:30 | NUR ---
BEDSIDE REPORT GIVEN TO MORNING NURSE.
--- NOTE | 2018-04-03 07:57 | NUR ---
SEVERAL ATTEMPTS FOR ABG, UNABLE TO GET ABG AT THIS TIME, LEFT WRIST AND ARM ARE COLD TO TOUCH AND BP IS 88/42 RN JAMMIE NOTIFIED WILL REATTEMPT LATER
[2018-04-03] MEDS: BLOOD GLUCOSE MONITORING 1 DEV DEV FS SCH ×4 (08:00→20:31)
[2018-04-03] MEDS: MEROPENEM 500 MG in NACL 0.9% 50 ML IV SCH ×2 (08:57→20:33)
[2018-04-03] MEDS: DOCUSATE 100 MG/10 ML UDC PO SCH ×2 (08:58→20:32)
[2018-04-03] MEDS: CALCIUM CARB/VIT-D 500 MG/200 IU 1 TAB PO SCH (08:58)
[2018-04-03] MEDS: PANTOPRAZOLE 40 MG INJ VIAL IVP SCH ×2 (08:58→20:31)
[2018-04-03] MEDS: AMIODARONE 200 MG TAB PO SCH ×2 (08:58→20:32)
[2018-04-03] MEDS: ATORVASTATIN 20 MG TAB PO SCH (08:58)
[2018-04-03] MEDS: LACTOBACILLUS RHAMNOSUS GG 1 EACH CAP PO SCH (08:58)
[2018-04-03] MEDS: BROMOCRIPTINE 2.5 MG TAB PO SCH ×2 (08:59→20:33)
--- NOTE | 2018-04-03 09:10 | NUR ---
VENT CHECK, NO SNX NEEDED AT THIS TIME, PT IS RESTING
[2018-04-03] MEDS: FINASTERIDE 5 MG TAB PO SCH (09:13)
--- NOTE | 2018-04-03 09:21 | NUR ---
ABG DRAWN ON RB WITHOUT INCIDENT AND RESULTS GIVEN TO DR. CRAFT AT 8720
--- NOTE | 2018-04-03 11:00 | NUR ---
VENT CHECK, NO SXN REQUIRED, AIRWAY IS PATENT AND PT IS RESTING WITH NO SIGNS OF DISTRESS NOTED IS AT BEDSIDE
[2018-04-03] MEDS ORDERED: CALCIUM ACETATE 667 MG TAB PO SCH (11:27)
--- NOTE | 2018-04-03 13:11 | NUR ---
VENT CHECK, I\L TX GIVEN WITH DUONEB 3ML WITH NO ADVERSE REACTION POST TX SXN PT SMALL AMT OF CLEAR SECRETIONS, PT IS SLEEPING WITH NO SIGNS OF DISTRESS NOTED
--- NOTE | 2018-04-03 14:00 | NUR ---
NOTIFIED RESIDENT REGARDING PT TEMP 96.5 F
--- NOTE | 2018-04-03 14:10 | NUR ---
PT LEFT ROOM FOR ABD CT, ACCOMPANIED BY RT, RNS AND CUTTING TOOL SHARPENER, PT HAD MODERATE AMOUNT OF EMESIS IN CT ROOM WHILE MOVING PT, SUCTIONED PT. TUBE FEEDING STOOPED BEFORE TRANSFERRING PT FOR CT.
[2018-04-03] MEDS: NACL 0.9% IV SCH (14:55)
[2018-04-03] MEDS: SODIUM BICARBONATE IV SCH (14:55)
[2018-04-03] MEDS: DEXT 5% IV SCH (14:55)
--- NOTE | 2018-04-03 15:00 | NUR ---
APPLIED BEAR HUGGER ON PT, STILL HOLD TUBE FEEDING.
[2018-04-03] MEDS: NOREPINEPHRINE 8 MG in DEXTROSE 5% 250 ML IV PRN ×2 (15:26→22:37)
--- NOTE | 2018-04-03 16:33 | NUR ---
Dr. MIJARES USED INDUSTRIAL CLEANING TECHNICIAN PHONE TO EXPLAIN CODE STATUS, BENEFITS AND RISKS EXPLAINED TO PT'S AND DAUGHTER BY DR. MIJARES. INDUSTRIAL CLEANING TECHNICIAN NUMBER [id number].
--- NOTE | 2018-04-03 16:45 | NUR ---
VENT CHECK, NO SXN NEEDED AIRWAY IS PATENT AND PT SLEEPING
--- NOTE | 2018-04-03 17:00 | NUR ---
STILL HOLD TUBE FEEDING DUE TO WILL INSERT ARCHIE CATH.
--- NOTE | 2018-04-03 18:15 | NUR ---
STARTED TO INSERT ARCHIE CATH FOR DIALYSIS, TIME OUT DONE. US TECH AT BEDSIDE TO GUIDE.
--- NOTE | 2018-04-03 18:45 | NUR ---
ARCHIE CATH INSERTION DONE.
--- NOTE | 2018-04-03 19:07 | NUR ---
REPORT GIVEN TO PM NURSE .
--- NOTE | 2018-04-03 19:25 | NUR ---
REPORT RECEIVED FROM MORNING NURSE JAMMIE.KARYNA. PATIENT LETHARGIC, NONVERBAL, UNABLE TO FOLLOW SIMPLE COMMANDS. ETT TO VENT SIZE 7.5 TAPED AT 24CM FROM THE LIP LINE TO VENT SETTING WITH AC 14, TV 300, FIO2 100%, PEEP 5. BILATERAL LUNG SOUND DIMINISHED AND TACHYPNEA NOTED. ON HOLDING G TUBE TO FEEDING DIABETICSOURSE 40ML/HR WITH H2O FLUSH 35ML Q4 DUE TO VOMITING AND PROCEDURE NOTED, PLACEMENT CHECKED, RESIDUAL 0CC NOTED. DRAINAGE BAG NOTED ON THE RIGHT CHEST WITH SMALL AMOUNT OF SANGUINOUS DRAINAGE. PATIENT HAS PICC LINE TO [facility] RUNNING SODIUM BICARBONATE 8.4% 150MEQ 80ML/HR AND LEVOPHED DRIP 23MCG/MIN. AND ARCHIE CATH FOR HEMODIALYSIS. LINES ARE INTACT, PATENT AND ASYMPTOMATIC. CONTRACTURE TO RIGHT UPPER RIGHT EXTREMITY. DELGADO CATHETER IN PLACE DRAINING LIGHT CELINA URINE. SCROTUM AND LEFT ARM SWELLING NOTED. FLACC 0. HOB ELEVATED 30 DEGREES, BED IN LOW POSITION, WILL CONTINUE TO MONITOR.
[2018-04-03] MEDS: TAMSULOSIN 0.4 MG CAP PO SCH (20:33)
--- NOTE | 2018-04-03 21:20 | NUR ---
ADMINISTERED SCHEDULED MEDICATION ORDERED, TOLERATED WELL. G TUBE RESIDUAL CHECKED 0CC NOTED. START TUBE FEEDING DIABETICSOURCE 40ML/HR. NO ACUTE DISTRESS NOTED. ON LEVOPHED DRIP. WILL CONTINUE TO MONITOR.
[2018-04-03] MEDS ORDERED: ALBUMIN HUMAN 25% 100 ML IV SCH (22:15)
--- NOTE | 2018-04-03 22:25 | NUR ---
NOTIFIED PATIENT'S ON HEMODIALYSIS NOW, BP 80/35 AND LEVOPHED DRIP ALREADY REACHED MAX DOSE AND ALREADY ADMINISTERED ALBUMIN 25% 100ML BY DIALYSIS NURSE TO DR. PYLE. DR STATED HE IS GOING TO CHECK AND ORDER SECOND PRESSOR.
[2018-04-04] VITALS (108 sets, daily range): BP systolic 56–164; BP diastolic 29–94
--- NOTE | 2018-04-04 | NUR ---
CALLED DR. PYLE NOTIFIED PATIENT'S BP 84/39 AND ASKED ABOUT SECOND PRESSOR. DR. PYLE STATED, HE SPOKE WITH DR. JAMISON, NO ORDER FOR SECOND PRESSOR AT THIS TIME. MONITOR UNTIL HEMODIALYSIS DONE, THEN LET'S SEE AFTER DIALYSIS.
--- NOTE | 2018-04-04 00:10 | NUR ---
CALLED DR. PYLE AGAIN AND INFORMED HIM THAT PATIENT'S BP AT 0003 WAS 78/41, PER DR. PYLE, HE SPOKE WITH DR. CONTE AND THAT THEY WILL NOT ORDER ANOTHER VASOPRESSOR AND LONG THE MAP IS 50 AND ABOVE THEN THAT'S OK. INFORMED FELIPA/DIALYSIS NURSE AND ASKED TO PAGE WIRE SPINNER DR. YADIRA GUAJARDO (SALES ADMINISTRATION SPECIALIST). FELIPA SPOKE WITH DR. YADIRA GUAJARDO, DIALYSIS STOPPED AND PER DR. GUAJARDO, PATIENT FOR POSSIBLE DIALYSIS IN AM.
[2018-04-04] MEDS: DILTIAZEM 60 MG TAB PO SCH ×2 (00:40→05:44)
--- NOTE | 2018-04-04 00:45 | NUR ---
RECEIVED DIALYSIS REPORT FROM DIALYSIS NURSE, 80CC FLUID REMOVED FROM PATIENT. Addendum: 04/04/18 at 0135 by Austin Negro RN DIALYSIS STOPPED. PER DR. GUAJARDO, PATIENT FOR POSSIBLE DIALYSIS IN TODAY AGAIN.
--- NOTE | 2018-04-04 00:50 | NUR ---
ADMINISTERED SCHEDULE MEDICATION ORDERED. TOLERATED WELL. RESIDUAL CHECKED LESS THAN 5CC NOTED. WILL CONTINUE TO MONITOR.
[2018-04-04] MEDS: ALBUTEROL SULFATE/IPRATROPIU 3 ML SOL IH SCH ×4 (01:00→18:54)
--- NOTE | 2018-04-04 01:30 | NUR ---
VOMIT X1 NOTED. HOLD G TUBE FEEDING AT THIS TIME. Addendum: 04/04/18 at 0318 by Austin Negro RN NOTIFIED
[2018-04-04] MEDS: LINEZOLID 600MG PREMIX 300 ML IV SCH ×2 (02:05→14:26)
[2018-04-04] MEDS: NOREPINEPHRINE 8 MG in DEXTROSE 5% 250 ML IV PRN ×4 (03:21→19:03)
--- NOTE | 2018-04-04 03:30 | NUR ---
PATIENT LETHARGIC, NO RESPONSIBLE TO PAIN. NO ACUTE DISTRESS NOTED. A FIB ON THE MONITOR, HR CONTROLLED. NO URINE OUTPUT NOTED. G TUBE RESIDUAL CHECKED 70ML NOTED. HOLD FEEDING AT THIS TIME. WILL CONTINUE TO MONITOR.
[2018-04-04] MEDS: SODIUM BICARBONATE IV SCH (04:45)
[2018-04-04] MEDS: DEXT 5% IV SCH (04:45)
[2018-04-04] MEDS: NACL 0.9% IV SCH (04:45)
--- NOTE | 2018-04-04 05:00 | NUR ---
CALLED TO DR. PYLE AND NOTIFIED NO CBC AND BMP. DR ORDERED CBC, BMP, PHOS, MAG. WILL FOLLOW THE ORDER.
[2018-04-04] MEDS: SODIUM CHLORIDE FLUSH 10 ML SYR IVF SCH ×3 (05:02→20:22)
--- NOTE | 2018-04-04 05:30 | NUR ---
ADMINISTERED SCHEDULED MEDICATION ORDERED. G TUBE RESIDUAL CHECKED, 60 CC NOTED. STILL HOLDING THE FEEDING. WILL CONTINUE TO MONITOR.
--- NOTE | 2018-04-04 07:02 | NUR ---
RECEIVED PATIENT ETT TO VENT. ETT SIZE 7.5 AT 24CM AT TEETH/GUM LINE ON VENT SETTINGS: AC 300, 14, +5, 100%. VENT PLUGGED INTO RED OUTLET. VENT ALARMS ON AND AUDIBLE. AIRWAY PATENT AND SECURE. AMBU BAG AT BEDSIDE. CONTINUOUS PULSE OX ON AND FUNCTIONING. SCHEDULED BREATHING TREATMENT ADMINISTERED. TOLERATED TX WELL, NO ADVERSE SIDE EFFECTS. SUCTIONED SMALL AMOUNT OF THICK, YELLOW SECRETIONS. NO RESPIRATORY DISTRESS NOTED AT THIS TIME. WILL CONTINUE TO MONITOR.
[2018-04-04 07:06] LABS: CREATININE 1.5 mg/dL (0.7-1.3); GLUCOSE 158 mg/dL (74-106); UREA NITROGEN, BLOOD 27 mg/dL (7-18)
[2018-04-04 07:09] LABS: PHOSPHORUS 7.2 mg/dL (2.5-4.9)
[2018-04-04 07:20] LABS: HEMATOCRIT 25.5 % (36-52); HEMOGLOBIN 7.6 g/dL (12.0-18.0); RED BLOOD CELL COUNT(AUTO) 2.72 MIL/uL (4.20-6.10)
--- NOTE | 2018-04-04 07:20 | NUR ---
REPORT RECEIVED FROM SENIOR ACCOUNTANT CPA AT BEDSIDE. PATIENT OPENS EYES TO VOICE BUT UNABLE TO FOLLOW COMMANDS. ETT TO VENT AND SETTING AT FIO2 100%, TV 300, AC RATE 14, PEEP 5. RIGHT IJ ARCHIE CATHETER AND LEFT ARM PICC LINE IN PLACE. GENERALIZED BODY EDEMATOUS, ABDOMEN DISTENDED. G-TUBE IN PLACE AND DELGADO CATHETER PLACEMENT. ON LEVOPHED DRIP AT 30MCG/MIN. CONTACT ISOLATION PRECAUTION FOR VRE IN URINE, ESBL IN SPUTUM. SING POSTED AT OUTSIDE OF DOOR. WILL CONTINUE TO MONITOR. Addendum: 04/04/18 at 0926 by Fili Murdock RN LEFT HAND BLACK DISCOLORATION NOTED DURING SKIN CHECK WITH SENIOR ACCOUNTANT CPA RN.
[2018-04-04 07:21] LABS: MEAN CORPUSCULAR HEMOGLOBIN 28 pg (27-31); MEAN CORPUSCULAR HGB CONC 30 g/dL (33-37); MEAN CORPUSCULAR VOLUME 93.6 fL (80-94); RED CELL DISTRIBUTION WIDTH 17.6 % (11.6-13.7)
[2018-04-04 07:22] LABS: PLATELET COUNT (AUTO) 88 K/uL (140-450)
[2018-04-04 07:23] LABS: CHLORIDE 96 mmol/L (98-107); POTASSIUM 4.5 mmol/L (3.5-5.1)
[2018-04-04 07:26] LABS: LYMPHOCYTES % (MANUAL) 6 % (20-46); MONOCYTES % (MANUAL) 1 % (5-12)
[2018-04-04 07:27] LABS: ANION GAP 29.2 (8-16); CARBON DIOXIDE 10.3 mmol/L (21-32); SODIUM SERUM 131 mmol/L (136-145)
[2018-04-04] MEDS: BLOOD GLUCOSE MONITORING 1 DEV DEV FS SCH ×4 (07:30→20:33)
--- NOTE | 2018-04-04 07:50 | NUR ---
RESIDENT GROUP IN TO SEE PATIENT. WILL FOLLOW UP ON ORDERS.
[2018-04-04 08:18] LABS: HEPATITIS A ANTIBODY IGM Negative (Negative); HEPATITIS B CORE AB TOTAL Negative (Negative); HEPATITIS B SURFACE ANTIBODY Non Reactive (.); HEPATITIS B SURFACE ANTIGEN Negative (Negative)
--- NOTE | 2018-04-04 09:00 | NUR ---
PATIENT'S AND SON AT BEDSIDE.
[2018-04-04] MEDS: MEROPENEM 500 MG in NACL 0.9% 50 ML IV SCH ×2 (09:19→20:33)
[2018-04-04] MEDS: PANTOPRAZOLE 40 MG INJ VIAL IVP SCH ×2 (09:19→20:29)
[2018-04-04] MEDS: FINASTERIDE 5 MG TAB PO SCH (09:19)
[2018-04-04] MEDS: BROMOCRIPTINE 2.5 MG TAB PO SCH ×2 (09:19→20:29)
[2018-04-04] MEDS: AMIODARONE 200 MG TAB PO SCH (09:20)
[2018-04-04] MEDS: LACTOBACILLUS RHAMNOSUS GG 1 EACH CAP PO SCH (09:20)
[2018-04-04] MEDS: ATORVASTATIN 20 MG TAB PO SCH (09:21)
[2018-04-04] MEDS: DOCUSATE 100 MG/10 ML UDC PO SCH ×2 (09:21→20:30)
[2018-04-04] MEDS: CALCIUM CARB/VIT-D 500 MG/200 IU 1 TAB PO SCH ×2 (09:21→20:31)
--- NOTE | 2018-04-04 10:08 | NUR ---
G-TUBE FEEDING WAS ON HOLD DURING NIGHT TIME. GASTRIC RESIDUAL 40ML NOTED AND ADMINISTERED ALL MEDICATION ORDERED. STARTED TUBE FEEDING AT 10ML AT THIS TIME. WILL CONTINUE TO MONITOR.
--- NOTE | 2018-04-04 10:30 | NUR ---
DR. RODRIGUEZ IN TO SEE PATIENT. WILL FOLLOW UP ON ORDERS.
--- NOTE | 2018-04-04 10:35 | NUR ---
DR. RODRIGUEZ WAS NOTIFIED OF LEFT HAND BLACK DISCOLORATION WHILE HE IS IN TO SEE PATIENT IN THE ROOM. Addendum: 04/04/18 at 1415 by Fili Murdock RN SIZE MEASURED 6X6 AND PICTURE TAKEN.
[2018-04-04] MEDS: SODIUM PHOSPHATE 118 ML ENEM RC SCH ×2 (11:00→17:50)
[2018-04-04] MEDS: SODIUM BICARBONATE 8.4% 150 MEQ in DEXTROSE 5% 1,000 ML IV SCH (11:13)
--- NOTE | 2018-04-04 11:50 | NUR ---
DIALYSIS NURSE IS HERE FOR HEMODIALYSIS.
--- NOTE | 2018-04-04 12:19 | NUR ---
DR. CRAFT IN TO SEE PATIENT.
[2018-04-04] MEDS ORDERED: ALBUMIN HUMAN 5 % 250 ML IV PRN ×2 (12:25→13:25)
--- NOTE | 2018-04-04 12:40 | NUR ---
OBTAINED THE TELEPHONE CONSENT FOR BLOOD TRANSFUSION FROM SON(MARISA CANTRELL) BY TWO LICENSED NURSES.
--- NOTE | 2018-04-04 12:50 | NUR ---
PER CXR AND DR. CRAFT, ETT TO BE WITHDRAWN 1 CM. 7.5 ETT NOW AT 23 CM AT THE TEETH/GUM LINE. ANCHOR FAST CHANGED. RT RENETTA ASSIST AT BEDSIDE. NO DISTRESS NOTED.
[2018-04-04] MEDS ORDERED: ACETAMINOPHEN EXTRA STRENGTH 500 MG TAB PO SCH (13:15)
[2018-04-04] MEDS ORDERED: LORATADINE 10 MG TAB PO SCH (13:15)
--- NOTE | 2018-04-04 13:21 | NUR ---
PATIENT RECEIVING DIALYSIS AT THIS TIME. FAMILY AT BEDSIDE. VENT CHECK DONE. VENT ALARMS ON AND AUDIBLE. SCHEDULED BREATHING TREATMENT ADMINISTERED. PATIENT TOLERATED TX WELL, NO ADVERSE SIDE EFFECTS. SUCTIONED MODERATE AMOUNT OF THICK YELLOW/BLOOD TINGED SECRETIONS. NO RESPIRATORY DISTRESS NOTED AT THIS TIME. WILL CONTINUE TO MONITOR.
--- NOTE | 2018-04-04 13:49 | NUR ---
PATIENT IS ON HEMODIALYSIS WITH EPISODES OF FLUCTUATING HR 40-85 AND DECREASING BP 84/33. INCREASED LEVOPHED TO 30MCG/MIN AND ALBUMIN IV GIVEN ORDERED. EBONY RODRIGUEZ WAS NOTIFIED AND CAME TO SEE PATIENT. PATIENT'S AT BEDSIDE. WAITING FOR BLOOD TRANSFUSION AND CHARGE NURSE, DONNA AWARE OF IT.
--- NOTE | 2018-04-04 14:00 | NUR ---
DIALYSIS NURSE CALLED DR. RODRIGUEZ REGARDING PATIENT'S CONDITION AND STOP HEMODIALYSIS AT THIS TIME DUE TO UNSTABLE BP & HR. WILL CONTINUE TO MONITOR.
--- NOTE | 2018-04-04 14:05 | NUR ---
PATIENT WAS ON TUBE FEEDING AT 10ML/HR AND NO RESIDUAL NOTED AT THIS TIME HOWEVER WHILE REPOSITIONING, PATIENT NOTED WITH SMALL AMOUNT OF VOMIT COMING OUT FROM MOUTH AND STOP FEEDING AT THIS TIME.
--- NOTE | 2018-04-04 14:10 | NUR ---
DR. FLORES CALLED PATIENT'S SON(MARISA CANTRELL) AND GIVEN AN UPDATE OF PATIENT'S CONDITION.
--- NOTE | 2018-04-04 14:36 | NUR ---
DR. DONALDSON AND DR. FLORES IN TO SEE PATIENT. WILL FOLLOW UP ORDERS.
--- NOTE | 2018-04-04 14:40 | NUR ---
DR. DONALDSON AWARE OF HOLD FEEDING DUE TO NOT TOLERATING AND EPISODE OF VOMIT. DR. DONALDSON STATED THAT CONTINUE TO BE HELD TUBE FEEDING AT THIS TIME. DR. FLORES WAS NOTIFIED OF LEFT HAND BLACK DISCOLORATION WELL. WILL FOLLOW UP ON ORDERS.
--- NOTE | 2018-04-04 14:52 | NUR ---
VENT CHECK DONE. VENT ALARMS ON AND AUDIBLE. SUCTIONED SMALL AMOUNT OF THICK YELLOW SECRETIONS. WILL CONTINUE TO MONITOR.
--- NOTE | 2018-04-04 15:00 | NUR ---
DR. FLORES READ EKG AND STATED THAT HEART RATE SHOULD BE 38/MIN INSTEAD OF 72/MIN WHICH SHOWS ON THE EKG PAPER. DR. FLORES AWARE OF PATIENT'S ABNORMAL RHYTHM AND FILED IN THE CHART.
--- NOTE | 2018-04-04 15:14 | NUR ---
HEART RATE NOTED 40's AND DR. FRANKLIN AWARE OF IT. DR. COBURN STATED THAT HOLD FLEET ENEMA AT THIS TIME DUE TO PATIENT IS UNSTABLE.
--- NOTE | 2018-04-04 15:30 | NUR ---
ABG DRAWN ONE HOUR AFTER END OF DIALYSIS PER MD ORDER. ABG DRAWN, RESULTS GIVEN TO DR. CRAFT. PER DR. CRAFT INCREASE RATE TO 16, INCREASE TIDAL VOLUME TO 500. VENT CHANGES MADE ACCORDINGLY. REPEAT ABG IN 2 HOURS.
[2018-04-04] MEDS ORDERED: BISACODYL 10 MG SUPP RC SCH (15:45)
[2018-04-04] MEDS ORDERED: MAGNESIUM CITRATE 300 ML BTL PO SCH (15:45)
--- NOTE | 2018-04-04 16:13 | NUR ---
STARTED BLOOD TRANSFUSION WITH PRBC ORDERED. WILL CONTINUE TO MONITOR FOR ANY REACTIONS.
[2018-04-04] MEDS: SENNA 8.6 MG TAB PO SCH (16:36)
--- NOTE | 2018-04-04 16:55 | NUR ---
CONTINUE ON BLOOD TRANSFUSION AND NO S/SX OF ANY REACTION NOTED AT THIS TIME. WILL CONTINUE TO MONITOR.
[2018-04-04] MEDS: BISACODYL 10 MG SUPP RC SCH (17:00)
--- NOTE | 2018-04-04 17:10 | NUR ---
PAGED DR. VIOLET V (#[phone])REGARDING THE RESULT OF ABSCESS DRAINAGE CULTURE AND WAITING FOR CALL BACK.
--- NOTE | 2018-04-04 17:14 | NUR ---
DR. LAZO CALLED BACK AND WAS NOTIFIED OF THE RESULT. DR. LAZO STATED THAT NO NEW ORDER AND CONTINUE WITH CURRENT IV ANTIBIOTIC ORDERS.
--- NOTE | 2018-04-04 17:20 | NUR ---
VENT CHECK DONE. VENT SETTINGS DOCUMENTED: AC 500, 16, +5, 100%. VENT PLUGGED INTO RED OUTLET. VENT ALARMS ON AND AUDIBLE. PULSE OX ON AND FUNCTIONING. AMBU BAG AT BEDSIDE./ FAMILY AT BEDSIDE. ORAL CARE PROVIDED. SUCTIONED SMALL AMOUNT OF THICK, YELLOW SECRETIONS. HME AND SUCTION CATHETER CHANGED. NO RESPIRATORY DISTRESS NOTED AT THIS TIME. WILL CONTINUE TO MONITOR.
[2018-04-04] MEDS ORDERED: VASOPRESSIN 20 UNITS in NACL 0.9% 250 ML IV SCH (17:40)
--- NOTE | 2018-04-04 17:46 | NUR ---
ABG DRAWN AT 1730. RESULTS GIVEN TO DR. CRAFT. NO VENT CHANGES TO BE MADE AT THIS TIME PER .
--- NOTE | 2018-04-04 17:51 | NUR ---
NOT ADMINISTERED DULCOLAX SUPPOSITORY DUE TO ADMINISTERED FLEET ENEMA AT THIS TIME.
[2018-04-04] MEDS ORDERED: SODIUM BICARBONATE 8.4% 50 MEQ/50 ML VIAL INJ SCH (18:00)
--- NOTE | 2018-04-04 18:48 | NUR ---
STARTED VASOPRESSIN DRIP ORDERED PER DR. CRAFT. PATIENT NOTED WITH WATERY MODERATE AMOUNT OF BOWEL MOVEMENT. WILL CONTINUE TO MONITOR.
--- NOTE | 2018-04-04 19:04 | NUR ---
RECEIVED PT ON VENT SUPPORT AT DOCUMENTED SETTINGS, SUCTIONED SMALL AMOUNTS OF THICK YELLOW GREEN SECRETIONS, HHN TX GIVEN, TOLERATED WELL, NO RESP DISTRESS OR SOB NOTED AT THIS TIME, 7.5 ETT SECURED AT 23 CM AT THE TEETH/GUM, ALARMS SET AND AUDIBLE, AMBU BAG AT BEDSIDE, VENT PLUGGED INTO RED OUTLET, PULSE OX, WILL CONT TO MONITOR.
--- NOTE | 2018-04-04 19:21 | NUR ---
REPORT GIVEN TO KARYNA KELLY FENDER FINISHER AT BEDSIDE. RECEIVED SODIUM BICARBONATE MEDICATION FROM PHARMACY DURING GIVING A REPORT AND ENDORSED TO FENDER FINISHER FOR FOLLOW UP.
--- NOTE | 2018-04-04 19:30 | NUR ---
RECEIVED REPORT FROM MORNING NURSE AT BEDSIDE. PATIENT HYPOTEHRMIC TEMPORAL TEMPERATURE OF 95.5 CURRENTLY ON BEARHUGGER. DOES NOT RESPOND TO VERBAL COMMANDS. BILATERAL PUPIL SLUGGISH. ETT TO VENT A/C 16, [id number] BI=531, PEEP=5. COARSE LUNG SOUND HEARD ON BILATERAL UPPER LOBES AND RLL, DIMINISHED IN LLL. YELLOW, THICK PURULENT MUCUS ON SUCTION VIA TRACHEA. DARK BROWN LIQUID FROM ORAL SUCTION. AFIB ON CONTINUOUS CASING TIER. NPO EXEPT MEDS. RESIDUAL FROM GTBUE OF 250ML BOWEL SOUNDS HYPOACTIVE. DELGADO IN PLACE NO URINE OUTPUT. SKIN IS INTACT BUT EDEMATOUS AND PITTING W/SCROTAL EDEMA, BLACKISH DISCOLORATION NOTED ON LEFT ARM BUT SKIN IS INTACT. ABSCESS DRAINAGE IN RIGHT ABDOMEN FLUSHED NOTED WITH DARK RED CONTENT. VASOPRESSIN DRIP AT 0.04 UNITS/MIN AND LEVOPHED DRIP 30MCG/MIN. CONTACT ISOLATION PRECAUTIONS MAINTAINED. PICC LINE TO BEAR TO DOUBLE LUMEN AND RIGHT IJ ARCHIE CATH TRIPLE LUMEN WITH ONE BEING PIGTAILED. ALL PATENT AND ASYMPTOMATIC. CALL LIGHT WITHIN REACH, HEAD OF BED ELEVATED. BED KEPT LOW AND LOCKED. WILL CONTINUE TO MONITOR.
--- NOTE | 2018-04-04 19:46 | NUR ---
VASSOPRESSIN DRIP TITRATED DOWN TO 0.03 UNIT/MIN DUE TO AF=650/50.
--- NOTE | 2018-04-04 20:08 | NUR ---
VASSOPRESSIN DRIP TITRATED DOWN TO 0.02 UNIT/MIN DUE TO JP=249/48.
--- NOTE | 2018-04-04 20:20 | NUR ---
VASSOPRESSIN DRIP HELD DUE TO WX=675/67. LEVOPHED DRIP RUNNING AT 30 MCG/MIN. WILL CONTINUE TO MONITOR.
[2018-04-04] MEDS: TAMSULOSIN 0.4 MG CAP PO SCH (20:29)
--- NOTE | 2018-04-04 20:35 | NUR ---
SPOKE TO REGARDING PLATELET 88 WAS INFORMED TO HOLD HEPARIN. NOTED AND CARRIED OUT.
--- NOTE | 2018-04-04 20:48 | NUR ---
LEVOPHED DRIP TITRATED DOWN TO 25 MCG/MIN DUE TO [place]=000/42.
--- NOTE | 2018-04-04 20:49 | NUR ---
DR. LAZO IN TO SEE PT. WILL FOLLOW UP WITH ANY NEW ORDERS.
--- NOTE | 2018-04-04 21:27 | NUR ---
LEVOPHED TITRATED DOWN TO 20 MCG/MIN DUE TO RN=725/52. WILL CONTINUE TO MONITOR.
--- NOTE | 2018-04-04 22:03 | NUR ---
LEVOPHED TITRATED UP TO 25MCG/MIN DUE TO MAP BELOW 65. WILL CONTINUE TO MONITOR
--- NOTE | 2018-04-04 23:10 | NUR ---
TITRATED LEVOPHED DRIP TO 30MCG/MIN B/P 97/36
--- NOTE | 2018-04-04 23:53 | NUR ---
VASOPRESSIN DRIP STARTED BACK @ 0.01 UNIT/MIN DUE TO LU=779/32 AND LEVOPHED DRIP AT MAX DOSE AT THIS TIME.
[2018-04-05] VITALS (46 sets, daily range): BP systolic 50–146; BP diastolic 20–54
[2018-04-05] MEDS ORDERED: NOREPINEPHRINE 4 MG/4 ML VIAL IV ONE ×2 (00:44→05:30)
[2018-04-05] MEDS: ALBUTEROL SULFATE/IPRATROPIU 3 ML SOL IH SCH ×2 (00:47→06:41)
[2018-04-05] MEDS: NOREPINEPHRINE 8 MG in DEXTROSE 5% 250 ML IV PRN ×2 (00:53→05:37)
[2018-04-05] MEDS: SODIUM BICARBONATE 8.4% 150 MEQ in DEXTROSE 5% 1,000 ML IV SCH (02:22)
--- NOTE | 2018-04-05 03:18 | NUR ---
INCREASE VASOPRESSIN TO 0.02UNIT/MIN DUE TO BP 108/32
--- NOTE | 2018-04-05 04:12 | NUR ---
INCREASE VASOPRESSIN TO 0.04UNIT/MIN DUE TO BP 100/36
--- NOTE | 2018-04-05 04:15 | NUR ---
PT'S HR NOTED TO BE SLOWLY COMING DOWN. CURRENTLY IN THE 40'S. CALLED DR. PYLE AND DR. PYLE ORDERED TO START LINDSAY-SYNEPHRINE DRIP AND MAX OUT NEEDED. NOTED WILL CARRY OUT.
[2018-04-05] MEDS: PHENYLEPHRINE 10 MG in NACL 0.9% 250 ML IV PRN ×2 (04:21→05:41)
--- NOTE | 2018-04-05 04:25 | NUR ---
LINDSAY-SYNEPHRINE DRIP MAX @150MCG/MIN AT THIS TIME. LEVOPHED AND VASOPRESSIN DRIPS ARE AT MAX DOSE AT THIS TIME. DR. PYLE AT BED SIDE.
[2018-04-05] MEDS ORDERED: CODE BLUE PARTICIPANT 1 EA MISC MC ONE (04:42)
[2018-04-05] MEDS ORDERED: SODIUM BICARBONATE 8.4% PFS 50 MEQ/50 ML SYR IVP ONE ×2 (04:42→04:58)
[2018-04-05] MEDS ORDERED: EPINEPHrine PFS 0.1 MG/ML SYR IVP ONE ×2 (04:42→09:44)
--- NOTE | 2018-04-05 04:42 | NUR ---
PT'S HR NOTED TO DECREASE RAPIDLY AND WITH ASYSTOLE. CODE BLUE INITIATED. PLEASE REFER TO THE CODE SHEET FOR DETAILS.
--- NOTE | 2018-04-05 04:50 | NUR ---
PT CODED AT THIS TIME, ASSISTED BAGGING, REGAINED PULSE, PLACED BACK ON VENTILATOR, RESP RATE INCREASED TO [address] BEE.
--- NOTE | 2018-04-05 05:00 | NUR ---
PT' PULSE AND VS APPRECIATED. DR. PYLE ORDERED TO CONTINUE WITH LEVOPHED, VASOPRESSIN, AND LINDSAY-SYNEPHRINE DRIPS. WILL CONTINUE TO MONITOR.
--- NOTE | 2018-04-05 05:07 | NUR ---
CALLED THE PATIENT'S FAMILY/SON AMELIA CUNNINGHAM, UPDATED ON PATIENT'S UNSTABLE CONDITION. HE SAID HE'LL COME HERE IN THE HOSPITAL NOW TO SEE HIS DAD.
[2018-04-05] MEDS: SODIUM CHLORIDE FLUSH 10 ML SYR IVF SCH (05:12)
--- NOTE | 2018-04-05 05:45 | NUR ---
FAMILY AT BEDSIDE AT THIS TIME
[2018-04-05] MEDS ORDERED: PHENYLEPHRINE 40 MG in NACL 0.9% 250 ML IV PRN (05:50)
[2018-04-05 05:57] LABS: MAGNESIUM 2.5 mg/dL (1.8-2.4); PHOSPHORUS 8.8 mg/dL (2.5-4.9)
[2018-04-05 05:59] LABS: CREATININE 1.5 mg/dL (0.7-1.3); GLUCOSE 123 mg/dL (74-106); UREA NITROGEN, BLOOD 24 mg/dL (7-18)
[2018-04-05 06:08] LABS: POTASSIUM 5.5 mmol/L (3.5-5.1); SODIUM SERUM 138 mmol/L (136-145)
[2018-04-05 06:11] LABS: ANION GAP 34.8 (8-16); CARBON DIOXIDE 11.7 mmol/L (21-32); CHLORIDE 97 mmol/L (98-107)
[2018-04-05 06:18] LABS: BASOPHILS % (AUTO) 0.1 % (0.0-2.0); EOSINOPHILS # (AUTO) 1.7 K/uL (0-0.4); EOSINOPHILS % (AUTO) 13.6 % (0.0-4.0); LYMPHOCYTES # (AUTO) 1.3 K/uL (2.0-11.5); LYMPHOCYTES % (AUTO) 10.8 % (20.5-51.1); MEAN CORPUSCULAR HEMOGLOBIN 28 pg (27-31); MEAN CORPUSCULAR HGB CONC 30 g/dL (33-37); MEAN CORPUSCULAR VOLUME 95.4 fL (80-94); MONOCYTES # (AUTO) 0.2 K/uL (0.8-1.0); MONOCYTES % (AUTO) 1.5 % (1.7-9.3); NEUTROPHILS # (AUTO) 9.1 K/uL (1.8-7.7); PLATELET COUNT (AUTO) 27 K/uL (140-450); RED BLOOD CELL COUNT(AUTO) 2.14 MIL/uL (4.20-6.10); RED CELL DISTRIBUTION WIDTH 17.1 % (11.6-13.7); WHITE BLOOD COUNT (AUTO) 12.3 K/uL (4.8-10.8)
[2018-04-05 06:20] LABS: HEMATOCRIT 20.4 % (36-52); HEMOGLOBIN 6.1 g/dL (12.0-18.0)
[2018-04-05] MEDS ORDERED: PHENYLEPHRINE 10 MG/ML VIAL ONE (06:41)
--- NOTE | 2018-04-05 07:07 | NUR ---
RECEIVED PATIENT ETT TO VENT ON SETTINGS AC 500,18, +5, 100%. ETT 7.5 AT 23 CM TEETH/GUM LINE. AIRWAY SECURE AND PATENT. VENT ALARMS ON AND AUDIBLE. VENT PLUGGED INTO RED OUTLET. AMBU BAG AT BEDSIDE. SCHEDULE BREATHING TREATMENT ADMINISTERED, TOLERATED WELL. FAMILY AT BEDSIDE. WILL CONTINUE TO MONITOR.
--- NOTE | 2018-04-05 07:20 | NUR ---
RECEIVED REPORT AT BEDSIDE FOR CONTINUITY OF CARE FROM MEDIATION COMMISSIONER RN. PATIENT IS [id number], DOES NOT RESPOND TO PAINFUL STIMULI. PATIENT HAS CENTRAL LINE TO RIGHT IJ, ARCHIE CATHETER, TRIPLE LUMEN WITH VASOPRESSIN RUNNING AND PICC LINE TO LEFT UPPER ARM WITH BICARB, NEOSYNEPHRINE AND LEVOPHED RUNNING. SKIN IS WARM AND DRY AND INTACT, PATIENT HAS A LIZETTE HUGGER IN PLACE DUE TO LOW TEMP, PER MEDIATION COMMISSIONER RN. HR IS 50, RESPIRATIONS 19, SPO2 100, BP IS 122/47. HE HAS ETT TO VENT, LUNG SOUNDS DIMINISHED. PATIENT HAS GTUBE IN PLACE. PATIENT ALSO HAS TUBE TO DRAINAGE BAG IN RIGHT UPPER QUADRANT. PATIENT HAS DELGADO CATHETER IN PLACE. HOB IS 30 DEGREES IN LOW POSITION, CALL LIGHT WITHIN REACH. WILL CONTINUE TO MONITOR CLOSELY.
--- NOTE | 2018-04-05 07:29 | NUR ---
PROVIDED REPORT TO MORNING SHIFT. HR 50 B/P 132/35. [id number] RR=16
[2018-04-05] MEDS: BLOOD GLUCOSE MONITORING 1 DEV DEV FS SCH (07:36)
--- NOTE | 2018-04-05 07:51 | NUR ---
DR. CADENA AND RESIDENT PHYSICIANS AT BEDSIDE, UPDATED ON PATIENT'S CONDITION. WILL FOLLOW UP ON ANY ORDERS.
--- NOTE | 2018-04-05 08:00 | NUR ---
PROVIDED ORAL CARE, PATIENT HAS BLOODY SALIVA, CLEANED PATIENT AND PLACED TOWEL UNDER CHIN. PATIENT TOLERATED WELL. WILL CONTINUE TO MONITOR
--- NOTE | 2018-04-05 08:20 | NUR ---
WAS CALLED TO CODE BLUE. PT BAGGED BY RT JAMESON AND RT GARCIA. MD GOVEA AT [facility]. ABG DONE BY RT GARCIA. RESULTS GIVEN TO MD GOVEA AND MD COBURN.
--- NOTE | 2018-04-05 08:45 | NUR ---
PATIENT CODED AT 0815, DR. GOVEA, DR. COBURN, RTS AT BEDSIDE. BICARB WAS GIVEN AT 0822, EPI GIVEN AT 0821, D50W GIVEN AT 0823, 10 UNITS OF INSULIN GIVEN AT 0823, ANOTHER EPI GIVEN AT 0826, AMIODARONE 150MG GIVEN AT 0828, ANOTHER BICARB GIVEN AT 0830. PULSE FOUND, PATIENT'S FAMILY NOTIFIED. WILL CONTINUE TO MONITOR CLOSELY
[2018-04-05] MEDS: BROMOCRIPTINE 2.5 MG TAB PO SCH (08:54)
[2018-04-05] MEDS: ATORVASTATIN 20 MG TAB PO SCH (08:55)
[2018-04-05] MEDS: CALCIUM CARB/VIT-D 500 MG/200 IU 1 TAB PO SCH (08:55)
[2018-04-05] MEDS: LACTOBACILLUS RHAMNOSUS GG 1 EACH CAP PO SCH (08:55)
[2018-04-05] MEDS: SENNA 8.6 MG TAB PO SCH (09:00)
[2018-04-05] MEDS: BISACODYL 10 MG SUPP RC SCH (09:00)
[2018-04-05] MEDS: PANTOPRAZOLE 40 MG INJ VIAL IVP SCH (09:00)
[2018-04-05] MEDS: DOCUSATE 100 MG/10 ML UDC PO SCH (09:00)
[2018-04-05] MEDS: FINASTERIDE 5 MG TAB PO SCH (09:09)
[2018-04-05] MEDS: MEROPENEM 500 MG in NACL 0.9% 50 ML IV SCH (09:15)
--- NOTE | 2018-04-05 09:18 | NUR ---
JAYDON MARTINEZ INITIATED. RN TEAM AT BEDSIDE, DR. GOVEA AT BEDSIDE. PATIENT BAGGED, ABG DRAWN. PULSE AND BLOOD PRESSURE RECOGNIZED. PLACED BACK ON VENTILATOR AT CURRENT VENT SETTINGS. EKG PERFORMED. WILL CONTINUE TO MONITOR CLOSELY. Addendum: 04/05/18 at 1011 by Evon Abraham RT JAYDON BEGAN AT 0815
--- NOTE | 2018-04-05 09:30 | NUR ---
WAS CALLED TO CODE BLUE. PT BAGGED BY RT JAMESON AND RT GARCIA. MD GOVEA AT [facility]. ABG DONE BY RT JAMESON. RESULTS GIVEN TO MD GOVEA AND MD COBURN.
--- NOTE | 2018-04-05 09:55 | NUR ---
ABG DONE WITH NO INCIDENT. RESULTS GIVEN TO MD GOVEA AND TO MD COBURN.
--- NOTE | 2018-04-05 10:04 | NUR ---
PATIENT CODED AT 0924, NO PULSE NOTED AT THAT TIME. DR. GOVEA AND RTS AT BEDSIDE. FAMILY IS AT BEDSIDE WELL. DURING CODE, PATIENT WAS GIVEN EPI AT 0929, PULSE 47, ATROPINE GIVEN AT 0931, NO PULSE FOUND, GIVEN EPI AT 0936, STILL NO PULSE FOUND, GIVEN EPI AT 0942, SLIGHTLY TREADING PULSE. DR. GOVEA AND DR. SOLIS BOTH SPOKE WITH FAMILY ABOUT PATIENT'S CONDITION. PATIENT'S FAMILY AGREE TO STOP ACLS DRUGS AND PLACE PATIENT IN COMFORT CARE. FAMILY IS AT BEDSIDE, WILL CONTINUE TO MONITOR
--- NOTE | 2018-04-05 10:46 | NUR ---
DR. FLORES IN TO SEE PATIENT, UPDATED ON PATIENT'S CONDITION. WILL FOLLOW UP ON ANY ORDERS.
--- NOTE | 2018-04-05 11:34 | NUR ---
ASYTOLE ON MONITOR, 12 LEAD EKG REQUESTED, DR. SOLIS AWARE.
--- NOTE | 2018-04-05 11:48 | NUR ---
DR. SOLIS CALLED TIME OF , FAMILY IS AT BEDSIDE.
--- NOTE | 2018-04-05 11:56 | NUR ---
TIME OF [address] SANTOS VENTILATOR TURNED OFF. FAMILY AT BEDSIDE. RN AWARE.
--- NOTE | 2018-04-05 12:27 | NUR ---
CALLED [employer], STATES THAT PATIENT IS NOT A CANDIDATE FOR DONATION OF ORGANS. CASE NUMBER IS [id number]
--- NOTE | 2018-04-05 13:10 | NUR ---
GIANLUCA FROM [facility] CALLED REGARDING INFORMATION ABOUT MORTUARY. ADDRESS AND PHONE NUMBER PROVIDED.
--- NOTE | 2018-04-05 13:46 | NUR ---
SPOKE WITH ARSALANUTRenzo RAPHAEL FROM [facility], STATES THAT THE PATIENT CAN BE RELEASED. CASE NUMBER IS [id number]
--- NOTE | 2018-04-05 14:32 | NUR ---
ZOILA FROM [facility] M[facility] AWARE THAT [employer] [facility] RELEASED THE CASE AND THE BODY IS READY FOR [employer] CONSULTANT. HE STATED THEY WILL BE HERE IN ONE TO TWO HOURS.
--- NOTE | 2018-04-05 16:44 | NUR ---
MORTUARY REPS AT BEDSIDE TO TAKE PATIENT TO MORTUARY IN [place].
== END 2018-04-05 16:45 | disposition expired | DRG 393 ==
LOC: MED 22:43 → MTU 03-25 01:03 → MIC 03-30 14:05
PROVIDERS: ADMIT Family Medicine; ATTEND Family Medicine
PROC: 02HV33Z Insertion of Infusion Device into Superior Vena Cava, Percutaneous Approach (ICD-10-PCS; 2018-03-25)
PROC: B548ZZA Ultrasonography of Superior Vena Cava, Guidance (ICD-10-PCS; 2018-03-25)
PROC: 5A1955Z Respiratory Ventilation, Greater than 96 Consecutive Hours (ICD-10-PCS; principal; 2018-03-30)
PROC: 0BH17EZ Insertion of Endotracheal Airway into Trachea, Via Natural or Artificial Opening (ICD-10-PCS; 2018-03-30)
PROC: 0W9F3ZZ Drainage of Abdominal Wall, Percutaneous Approach (ICD-10-PCS; 2018-04-01)
PROC: 5A1D70Z Performance of Urinary Filtration, Intermittent, Less than 6 Hours Per Day (ICD-10-PCS; 2018-04-03)
PROC: 02HV33Z Insertion of Infusion Device into Superior Vena Cava, Percutaneous Approach (ICD-10-PCS; 2018-04-03)
PROC: B548ZZA Ultrasonography of Superior Vena Cava, Guidance (ICD-10-PCS; 2018-04-03)
PROC: 5A1D70Z Performance of Urinary Filtration, Intermittent, Less than 6 Hours Per Day (ICD-10-PCS; 2018-04-04)
PROC: 30233N1 Transfusion of Nonautologous Red Blood Cells into Peripheral Vein, Percutaneous Approach (ICD-10-PCS; 2018-04-04)
DX: K94.23 Gastrostomy malfunction (principal); A41.9 Sepsis, unspecified organism; J96.21 Acute and chronic respiratory failure with hypoxia; K65.1 Peritoneal abscess; J69.0 Pneumonitis due to inhalation of food and vomit; E43 Unspecified severe protein-calorie malnutrition; N17.0 Acute kidney failure with tubular necrosis; R65.21 Severe sepsis with septic shock; G93.41 Metabolic encephalopathy; K86.1 Other chronic pancreatitis; N39.0 Urinary tract infection, site not specified; I42.0 Dilated cardiomyopathy; E87.0 Hyperosmolality and hypernatremia; E87.1 Hypo-osmolality and hyponatremia; I69.351 Hemiplegia and hemiparesis following cerebral infarction affecting right dominant side; D68.69 Other thrombophilia; R18.8 Other ascites; Z68.32 Body mass index [BMI] 32.0-32.9, adult; I50.9 Heart failure, unspecified; E83.39 Other disorders of phosphorus metabolism; E11.65 Type 2 diabetes mellitus with hyperglycemia; G20 Parkinson's disease; D64.9 Anemia, unspecified; B95.2 Enterococcus as the cause of diseases classified elsewhere; B96.20 Unspecified Escherichia coli [E. coli] as the cause of diseases classified elsewhere; E03.9 Hypothyroidism, unspecified; F03.90 Unspecified dementia, unspecified severity, without behavioral disturbance, psychotic disturbance, mood disturbance, and anxiety; E87.5 Hyperkalemia; I11.0 Hypertensive heart disease with heart failure; I25.10 Atherosclerotic heart disease of native coronary artery without angina pectoris; I48.0 Paroxysmal atrial fibrillation; K29.70 Gastritis, unspecified, without bleeding; K56.41 Fecal impaction; M81.0 Age-related osteoporosis without current pathological fracture; N40.0 Benign prostatic hyperplasia without lower urinary tract symptoms; Z16.21 Resistance to vancomycin; Z22.322 Carrier or suspected carrier of Methicillin resistant Staphylococcus aureus; Z88.0 Allergy status to penicillin; Z74.01 Bed confinement status; R62.7 Adult failure to thrive; I48.2 Chronic atrial fibrillation; Z66 Do not resuscitate; R74.0 Nonspecific elevation of levels of transaminase and lactic acid dehydrogenase [LDH]; E11.69 Type 2 diabetes mellitus with other specified complication; K74.60 Unspecified cirrhosis of liver; N20.0 Calculus of kidney; I46.9 Cardiac arrest, cause unspecified
CPT/HCPCS: 36415; 36600; 70450; 71045; 71275; 74018; 75989; 76604; 76700; 76705; 80048; 80053; 80162; 81001; 82040; 82150; 82803; 82948; 83036; 83605; 83690; 83735; 83880; 84100; 84436; 84439; 84443; 84479; 84484; 85025; 85610; 85730; 86704; 86706; 86708; 86709; 86803; 86886; 86900; 86901; 86920; 87040; 87070; 87075; 87081; 87086; 87186; 87205; 87340; 90935; 93005; 93880; 93922; 93930; 93970; 93971; 94003; 94640; 96361; 96365; 96375; 99291; C1729; C1751; C1758; C9113; J0171; J0282; J1160; J1642; J1644; J1815; J1940; J1956; J2001; J2020; J2060; J2185; J2270; J2370; J3370; J3490; J7030; J7042; J7060; J7620; P9016; P9041; P9046; Q0092; Q0163; Q9967